=== PATIENT | female | born 1945 | race Caucasian/White ===

== ENCOUNTER → 2017-02-21 | Outpatient (CLI) | payer OTHER ==
[~2017-02-21] MED LIST: ASPI81CH43 PO; HYDR12.56 PO; METO25TA5 PO; POT20T PO; SIMV-8 PO
[2017-02-21 10:38] LABS: Basophils # (auto) 0 uL; Basophils % (auto) 0.6 % (0.0-2.0); Eosinophils # (auto) 0.2 uL; Eosinophils % (auto) 2.9 % (0.0-7.0); Hematocrit 38.3 % (36.0-46.0); Hemoglobin 12.6 g/dL (12.2-16.2); Lymphocytes # (auto) 1.5 uL; Lymphocytes % (auto) 24.4 % (10.0-50.0); Mean Corpuscular Hemoglobin 30.8 pg (28.0-32.0); Mean Corpuscular Hgb Conc. 32.8 g/dL (32.0-36.0); Mean Corpuscular Volume 93.7 fL (80.0-100.0); Mean Platelet Volume 9.7 fL (7.4-10.4); Monocytes # (auto) 0.6 uL; Monocytes % (auto) 10.1 % (0.0-12.0); Neutrophils # (auto) 3.9 uL; Platelet Count (auto) 286 10^3/uL (140-450); Red Cell Distribution Width 13.8 % (11.6-16.0); White Blood Cell 6.3 10^3/uL (4.4-10.8)
[2017-02-21 11:15] LABS: Bilirubin, Total 0.6 mg/dL (0.2-1.0); Calcium 8.7 mg/dL (8.5-10.1); Potassium 3.6 mmol/L (3.5-5.1); Total Protein 6.6 g/dL (6.4-8.2)
[2017-02-21 11:20] LABS: INR 0.96 (0.9-1.15); Partial Thromboplastin Time 31.8 sec (22.64-33.71); Prothrombin Time 10.4 sec (9.37-12.3)
== END | disposition home or self-care (01) ==
LOC: LAB 09:11
PROVIDERS: ATTEND Internal Medicine Cardiovascular Disease
DX: Z01.810 Encounter for preprocedural cardiovascular examination (principal); R07.9 Chest pain, unspecified
CPT/HCPCS: 36415; 80053; 85025; 85610; 85730

== ENCOUNTER 2017-02-23 07:54 | Inpatient (IN) | payer OTHER ==
[~2017-02-23] VITALS: Ht 172.7 cm; Wt 90.4 kg
[~2017-02-23 07:54] MED LIST changes: +HEPARIN IN NS 1000Units/500mL 1,500 ML ONE; +IODIXANOL 320MG/ML 100ML BTL IV ONE; +LIDOCAINE 2%HCL (LOCAL ANESTH.) INJ 20ML MDV ONE
[2017-02-23] MEDS ORDERED: fentaNYL CITRATE 100 MCG/2 ML VL ONE (08:39)
[2017-02-23] MEDS ORDERED: MIDAZOLAM HCL 1MG/1ML-2 ML VIAL ONE (08:39)
[2017-02-23] MEDS ORDERED: ANGIOMAX 250 MG VIAL IV ONE ×2 (08:40→10:34)
[2017-02-23] MEDS ORDERED: SODIUM CHL 0.9% 50 ML ONE ×2 (08:40→10:34)
[2017-02-23] MEDS ORDERED: hydrALAZINE HCL 20 MG/ML VL ONE (10:04)
[2017-02-23] MEDS ORDERED: ONDANSETRON HCL 4 MG/2 ML VIAL ONE (10:41)
[2017-02-23] MEDS ORDERED: MILK OF MAGNESIA 30ML SUSP PO ONE (11:45)
[2017-02-23] MEDS ORDERED: MORPHINE SULF INJ 2 MG/ML SYRINGE 1ML IV PRN ×2 (11:45)
[2017-02-23] MEDS ORDERED: HYDROcodone-ACET 5/325MG TAB PO PRN (11:45)
[2017-02-23] MEDS ORDERED: ONDANSETRON HCL 4 MG/2 ML VIAL IV PRN (11:45)
[2017-02-23] MEDS ORDERED: NITROGLYCERIN 0.4 MG SL TAB SL PRN ×2 (11:45)
[2017-02-23] MEDS ORDERED: ACETAMINOPHEN 500 MG TAB PO PRN (11:45)
[2017-02-23] MEDS ORDERED: LORazepam 0.5 MG TAB PO PRN (11:45)
[2017-02-23] MEDS ORDERED: ASPirin 325 MG TAB ONE (12:15)
[2017-02-23] MEDS ORDERED: CLOPIDOGREL 300 MG TAB ONE (12:15)
[2017-02-23] MEDS ORDERED: ASPirin 325 MG TAB PO ONE (12:30)
[2017-02-23] MEDS ORDERED: CLOPIDOGREL 300 MG TAB PO ONE (12:30)
[2017-02-23 20:00] VITALS: BP 159/73
[2017-02-23] MEDS: ENALAPRIL MALEATE 2.5 MG TAB PO SCH (21:25)
[2017-02-23 22:00] VITALS: BP 159/73
[2017-02-23] MEDS ORDERED: ATORVASTATIN 20 MG TAB PO SCH (22:00)
[2017-02-23 23:00] VITALS: BP 142/62
[2017-02-24 05:00] VITALS: BP 129/59
[2017-02-24 08:00] VITALS: BP 159/73
[2017-02-24] MEDS ORDERED: ASPirin-EC 81 mg tab PO SCH (10:00)
[2017-02-24] MEDS ORDERED: CLOPIDOGREL BISULFATE 75 MG TAB PO SCH (10:00)
[2017-02-24] MEDS ORDERED: METOPROLOL SUCCINATE XL 50 MG TAB PO SCH (10:00)
[2017-02-24] MEDS: ENALAPRIL MALEATE 2.5 MG TAB PO SCH (11:29)
[2017-02-24 14:06] VITALS: BP 137/54
[2017-02-24 15:08] VITALS: BP 140/55
== END 2017-02-24 16:00 | disposition home or self-care (01) | DRG 247 ==
LOC: CATH 07:54 → TELE-WESTW 07:55
PROVIDERS: ADMIT Internal Medicine Cardiovascular Disease; ATTEND Internal Medicine Cardiovascular Disease
PROC: B2111ZZ Fluoroscopy of Multiple Coronary Arteries using Low Osmolar Contrast (ICD-10-PCS; principal; 2017-02-23)
PROC: 027034Z Dilation of Coronary Artery, One Artery with Drug-eluting Intraluminal Device, Percutaneous Approach (ICD-10-PCS; 2017-02-23)
PROC: 4A023N7 Measurement of Cardiac Sampling and Pressure, Left Heart, Percutaneous Approach (ICD-10-PCS; 2017-02-23)
PROC: B41F1ZZ Fluoroscopy of Right Lower Extremity Arteries using Low Osmolar Contrast (ICD-10-PCS; 2017-02-23)
DX: I25.119 Atherosclerotic heart disease of native coronary artery with unspecified angina pectoris (principal); E44.0 Moderate protein-calorie malnutrition; I47.1 Supraventricular tachycardia; Z68.30 Body mass index [BMI] 30.0-30.9, adult; E78.5 Hyperlipidemia, unspecified; I12.9 Hypertensive chronic kidney disease with stage 1 through stage 4 chronic kidney disease, or unspecified chronic kidney disease; N18.3 Chronic kidney disease, stage 3 (moderate); Z79.02 Long term (current) use of antithrombotics/antiplatelets; Z79.82 Long term (current) use of aspirin; Z82.49 Family history of ischemic heart disease and other diseases of the circulatory system; Z95.5 Presence of coronary angioplasty implant and graft; Z88.5 Allergy status to narcotic agent; Z90.49 Acquired absence of other specified parts of digestive tract; Z90.710 Acquired absence of both cervix and uterus; Z84.89 Family history of other specified conditions; Z88.0 Allergy status to penicillin; Z91.02 Food additives allergy status
CPT/HCPCS: 92928; 93458; C1887; J2250; J2405; Q9967

== ENCOUNTER → 2017-03-12 | Outpatient (CLI) | payer OTHER ==
[~2017-03-12] MED LIST changes: -HEPARIN IN NS 1000Units/500mL 1,500 ML ONE; -IODIXANOL 320MG/ML 100ML BTL IV ONE; -LIDOCAINE 2%HCL (LOCAL ANESTH.) INJ 20ML MDV ONE; -METO25TA5 PO
== END | disposition home or self-care (01) ==
LOC: LAB 09:28
DX: Z12.11 Encounter for screening for malignant neoplasm of colon (principal)
CPT/HCPCS: 82270

== ENCOUNTER → 2017-06-29 | Outpatient (CLI) | payer OTHER ==
[2017-06-29 10:38] LABS: Basophils # (auto) 0.1 uL; Basophils % (auto) 0.7 % (0.0-2.0); Eosinophils # (auto) 0.2 uL; Eosinophils % (auto) 2.2 % (0.0-7.0); Hemoglobin 12.4 g/dL (12.2-16.2); Lymphocytes # (auto) 1.4 uL; Lymphocytes % (auto) 20.9 % (10.0-50.0); Mean Corpuscular Hemoglobin 31.9 pg (28.0-32.0); Mean Corpuscular Hgb Conc. 33.5 g/dL (32.0-36.0); Mean Corpuscular Volume 95.1 fL (80.0-100.0); Mean Platelet Volume 8.6 fL (7.4-10.4); Monocytes # (auto) 0.7 uL; Monocytes % (auto) 9.6 % (0.0-12.0); Neutrophils # (auto) 4.5 uL; Neutrophils % (auto) 66.6 % (37.0-80.0); Nucleated Red Blood Cells % 0.1 %; Platelet Count (auto) 273 10^3/uL (140-450); Red Cell Distribution Width 13.3 % (11.6-16.0); White Blood Cell 6.8 10^3/uL (4.4-10.8)
[2017-06-29 10:49] LABS: Urine Bilirubin Negative (Negative); Urine Blood Negative /uL (Negative); Urine Color Yellow (Yellow); Urine Glucose Normal (Normal); Urine Ketone Negative (Negative); Urine Mucus FEW (None Seen); Urine Nitrite Negative (Negative); Urine RBC 1 /hpf (0 - 4); Urine Squamous Epithelial Cell FEW /hpf (<5); Urine Urobilinogen Normal (Negative); Urine pH 5.5 (5.0-8.0)
[2017-06-29 11:08] LABS: Albumin 3.2 g/dL (3.4-5.0); BUN/Creatinine Ratio 10.3; Bilirubin, Total 0.8 mg/dL (0.2-1.0); Calcium 8.8 mg/dL (8.5-10.1); Potassium 3.3 mmol/L (3.5-5.1); Total Protein 6.9 g/dL (6.4-8.2)
[2017-07-02 10:01] LABS: Hepatitis B Surface Antibody Negative
== END | disposition home or self-care (01) ==
LOC: LAB 09:56
PROVIDERS: ATTEND Family Medicine
DX: Z11.59 Encounter for screening for other viral diseases (principal); I12.9 Hypertensive chronic kidney disease with stage 1 through stage 4 chronic kidney disease, or unspecified chronic kidney disease; N18.3 Chronic kidney disease, stage 3 (moderate)
CPT/HCPCS: 36415; 80053; 80061; 81001; 82306; 82607; 84443; 85025; 86704; 86706; 86708; 86803; 87340

== ENCOUNTER → 2017-07-12 | Outpatient (CLI) | payer OTHER ==
[2017-07-12 11:18] LABS: BUN/Creatinine Ratio 9.7; Calcium 8.8 mg/dL (8.5-10.1); Potassium 3.7 mmol/L (3.5-5.1)
== END | disposition home or self-care (01) ==
LOC: LAB 10:43
PROVIDERS: ATTEND Family Medicine
DX: E87.6 Hypokalemia (principal); I12.9 Hypertensive chronic kidney disease with stage 1 through stage 4 chronic kidney disease, or unspecified chronic kidney disease; N18.3 Chronic kidney disease, stage 3 (moderate)
CPT/HCPCS: 36415; 80048

== ENCOUNTER → 2018-10-09 | Outpatient (CLI) | payer OTHER ==
[2018-10-09 11:07] LABS: Basophils # (auto) 0 uL; Basophils % (auto) 0.4 % (0.0-2.0); Eosinophils # (auto) 0 uL; Eosinophils % (auto) 0.6 % (0.0-7.0); Hematocrit 39.3 % (36.0-46.0); Lymphocytes # (auto) 0.8 uL; Lymphocytes % (auto) 9.7 % (10.0-50.0); Mean Corpuscular Hemoglobin 31.9 pg (28.0-32.0); Mean Corpuscular Hgb Conc. 33.1 g/dL (32.0-36.0); Mean Corpuscular Volume 96.4 fL (80.0-100.0); Monocytes # (auto) 0.6 uL; Neutrophils # (auto) 6.4 uL; Neutrophils % (auto) 81.3 % (37.0-80.0); Platelet Count (auto) 283 10^3/uL (140-450); Red Blood Cells 4.08 10^6/uL (4.0-5.20); White Blood Cell 7.9 10^3/uL (4.4-10.8)
== END | disposition home or self-care (01) ==
LOC: LAB 10:54
PROVIDERS: ATTEND Podiatrist
DX: L08.9 Local infection of the skin and subcutaneous tissue, unspecified (principal)
CPT/HCPCS: 36415; 85025

== ENCOUNTER → 2018-10-09 | Outpatient (CLI) | payer OTHER | END | disposition home or self-care (01) | LOC: LAB 08:14 | PROVIDERS: ATTEND Podiatrist | DX: S91.301A Unspecified open wound, right foot, initial encounter (principal); X58.XXXA Exposure to other specified factors, initial encounter; Y93.89 Activity, other specified; Y92.89 Other specified places as the place of occurrence of the external cause; Y99.8 Other external cause status | CPT/HCPCS: 87205 ==

== ENCOUNTER → 2018-11-01 | Outpatient (CLI) | payer OTHER ==
[~2018-11-01] MED LIST changes: +CLOP75TA28 PO; +ENA2.5T PO; -HYDR12.56 PO; +IBU600T PO; +METO-169 PO; -POT20T PO; +RANI300T3 PO
== END | disposition home or self-care (01) ==
LOC: LAB 18:33
PROVIDERS: ATTEND Internal Medicine
DX: M86.171 Other acute osteomyelitis, right ankle and foot (principal)
CPT/HCPCS: 36415; 80202

== ENCOUNTER → 2018-11-04 | Outpatient (CLI) | payer OTHER, MEDICARE ==
[2018-11-04 14:01] LABS: Basophils # (auto) 0 uL; Basophils % (auto) 0.8 % (0.0-2.0); Eosinophils # (auto) 0.3 uL; Eosinophils % (auto) 5.1 % (0.0-7.0); Hematocrit 35.5 % (36.0-46.0); Hemoglobin 11.8 g/dL (12.2-16.2); Mean Corpuscular Hemoglobin 32.2 pg (28.0-32.0); Mean Corpuscular Hgb Conc. 33.2 g/dL (32.0-36.0); Mean Corpuscular Volume 96.9 fL (80.0-100.0); Monocytes # (auto) 0.5 uL; Monocytes % (auto) 8.3 % (0.0-12.0); Neutrophils # (auto) 4.1 uL; Neutrophils % (auto) 68.8 % (37.0-80.0); Platelet Count (auto) 200 10^3/uL (140-450); Red Blood Cells 3.66 10^6/uL (4.0-5.20); Red Cell Distribution Width 13.2 % (11.8-14.3); White Blood Cell 5.9 10^3/uL (4.4-10.8)
[2018-11-04 14:22] LABS: Potassium 3.4 mmol/L (3.5-5.1)
[2018-11-04 14:26] LABS: Albumin 2.9 g/dL (3.4-5.0); BUN/Creatinine Ratio 6.6; Calcium 7.9 mg/dL (8.5-10.1)
[2018-11-04 14:29] LABS: Bilirubin, Total 0.6 mg/dL (0.2-1.0); Total Protein 5.7 g/dL (6.4-8.2)
== END | disposition home or self-care (01) ==
LOC: LAB 13:35
PROVIDERS: ATTEND Internal Medicine
DX: M86.171 Other acute osteomyelitis, right ankle and foot (principal)
CPT/HCPCS: 36415; 80053; 80202; 85025

== ENCOUNTER 2018-11-07 15:19 | Emergency (ER) | payer OTHER, MEDICARE ==
[~2018-11-07] VITALS: Ht 172.7 cm; Wt 77.1 kg
[2018-11-07 16:22] LABS: Anion Gap 4 (5-15); Basophils # (auto) 0.1 uL; Basophils % (auto) 0.9 % (0.0-2.0); Blood Urea Nitrogen 12 mg/dL (7-18); Calcium 8.3 mg/dL (8.5-10.1); Carbon Dioxide 26 mmol/L (21-32); Chloride 115 mmol/L (98-107); Eosinophils # (auto) 0.3 uL; Eosinophils % (auto) 5.3 % (0.0-7.0); Glucose 123 mg/dL (74-106); Hematocrit 35.6 % (36.0-46.0); Hemoglobin 11.9 g/dL (12.2-16.2); Lymphocytes % (auto) 15.5 % (10.0-50.0); Mean Corpuscular Hemoglobin 32.2 pg (28.0-32.0); Mean Corpuscular Hgb Conc. 33.5 g/dL (32.0-36.0); Monocytes # (auto) 0.7 uL; Monocytes % (auto) 11.1 % (0.0-12.0); Neutrophils # (auto) 4.2 uL; Neutrophils % (auto) 67.2 % (37.0-80.0); Platelet Count (auto) 233 10^3/uL (140-450); Red Blood Cells 3.71 10^6/uL (4.0-5.20); Red Cell Distribution Width 13.3 % (11.8-14.3); Sodium 145 mmol/L (136-145); White Blood Cell 6.3 10^3/uL (4.4-10.8)
[2018-11-07 16:35] LABS: Alanine Aminotransferase 22 U/L (13-56); Alkaline Phosphatase 80 U/L (45-117); Aspartate Aminotransferase 19 U/L (15-37); BUN/Creatinine Ratio 7.6; Bilirubin, Total 0.5 mg/dL (0.2-1.0); GFR African American 41 mL/min; GFR Non-African American 34 mL/min; Total Protein 6.7 g/dL (6.4-8.2)
[2018-11-07 16:47] LABS: Potassium 2.8 mmol/L (3.5-5.1)
[2018-11-07 18:29] VITALS: BP 162/75
[2018-11-07] MEDS ORDERED: POTASSIUM EFFERVESENT TAB 25 MEQ PO ONE (19:45)
[2018-11-07] MEDS ORDERED: POTASSIUM CHL 20 Meq TABLET PO ONE (19:45)
== END 2018-11-07 19:42 | disposition home or self-care (01) ==
LOC: ER 15:27
DX: E87.6 Hypokalemia (principal); I10 Essential (primary) hypertension; E78.5 Hyperlipidemia, unspecified; Z86.73 Personal history of transient ischemic attack (TIA), and cerebral infarction without residual deficits; Z90.49 Acquired absence of other specified parts of digestive tract; Z90.710 Acquired absence of both cervix and uterus; Z98.61 Coronary angioplasty status; Z88.6 Allergy status to analgesic agent; Z91.018 Allergy to other foods
CPT/HCPCS: 36415; 80053; 84484; 85025; 93005

== ENCOUNTER → 2018-11-07 | Outpatient (CLI) | payer OTHER, MEDICARE ==
[2018-11-07 11:02] LABS: Albumin 2.9 g/dL (3.4-5.0); Calcium 8.2 mg/dL (8.5-10.1)
[2018-11-07 11:07] LABS: BUN/Creatinine Ratio 7.2; Bilirubin, Total 0.5 mg/dL (0.2-1.0); Total Protein 6.2 g/dL (6.4-8.2)
[2018-11-07 11:21] LABS: Potassium 2.7 mmol/L (3.5-5.1)
== END | disposition home or self-care (01) ==
LOC: LAB 10:22
PROVIDERS: ATTEND Family Medicine
DX: M86.171 Other acute osteomyelitis, right ankle and foot (principal); L03.115 Cellulitis of right lower limb
CPT/HCPCS: 36415; 80053; 80202

== ENCOUNTER 2018-11-09 10:11 | Emergency (ER) | payer MEDICARE, OTHER ==
[~2018-11-09] VITALS: Ht 172.7 cm; Wt 74.8 kg
[2018-11-09 10:18] VITALS: BP 177/65
[2018-11-09] MEDS ORDERED: POTASSIUM EFFERVESENT TAB 25 MEQ PO ONE ×2 (11:15)
== END 2018-11-09 11:44 | disposition home or self-care (01) ==
LOC: ER 10:11
DX: E87.6 Hypokalemia (principal); I10 Essential (primary) hypertension; E78.5 Hyperlipidemia, unspecified; Z90.710 Acquired absence of both cervix and uterus; Z90.49 Acquired absence of other specified parts of digestive tract; Z88.6 Allergy status to analgesic agent
CPT/HCPCS: 36415; 84132

== ENCOUNTER → 2018-11-11 | Outpatient (CLI) | payer OTHER, MEDICARE ==
[2018-11-11 10:40] LABS: Calcium 8.5 mg/dL (8.5-10.1); Potassium 3.3 mmol/L (3.5-5.1)
== END | disposition home or self-care (01) ==
LOC: LAB 10:08
PROVIDERS: ATTEND Family Medicine
DX: M86.171 Other acute osteomyelitis, right ankle and foot (principal)
CPT/HCPCS: 36415; 80048; 80202

== ENCOUNTER → 2018-11-14 | Outpatient (CLI) | payer OTHER, MEDICARE ==
[2018-11-14 09:56] LABS: Basophils # (auto) 0.1 uL; Basophils % (auto) 1.1 % (0.0-2.0); Eosinophils # (auto) 0.3 uL; Hematocrit 33.8 % (36.0-46.0); Hemoglobin 11.5 g/dL (12.2-16.2); Lymphocytes % (auto) 19.2 % (10.0-50.0); Mean Corpuscular Hemoglobin 32.5 pg (28.0-32.0); Mean Corpuscular Hgb Conc. 34.1 g/dL (32.0-36.0); Mean Corpuscular Volume 95.4 fL (80.0-100.0); Monocytes # (auto) 0.7 uL; Monocytes % (auto) 12.3 % (0.0-12.0); Neutrophils # (auto) 3.3 uL; Neutrophils % (auto) 61.4 % (37.0-80.0); Nucleated Red Blood Cells % 0.1 %; Platelet Count (auto) 246 10^3/uL (140-450); Red Blood Cells 3.54 10^6/uL (4.0-5.20); Red Cell Distribution Width 13.1 % (11.8-14.3); White Blood Cell 5.3 10^3/uL (4.4-10.8)
[2018-11-14 10:11] LABS: BUN/Creatinine Ratio 8.3; Calcium 8.3 mg/dL (8.5-10.1); Potassium 3.6 mmol/L (3.5-5.1)
[2018-11-14 10:14] LABS: Bilirubin, Total 0.7 mg/dL (0.2-1.0); Total Protein 6.6 g/dL (6.4-8.2)
== END | disposition home or self-care (01) ==
LOC: LAB 09:32
PROVIDERS: ATTEND Internal Medicine
DX: M86.171 Other acute osteomyelitis, right ankle and foot (principal)
CPT/HCPCS: 36415; 80053; 80202; 83036; 85025

== ENCOUNTER → 2018-11-18 | Outpatient (CLI) | payer OTHER, MEDICARE ==
[2018-11-18 11:03] LABS: Potassium 3.8 mmol/L (3.5-5.1)
[2018-11-18 11:10] LABS: Calcium 8.7 mg/dL (8.5-10.1)
== END | disposition home or self-care (01) ==
LOC: LAB 09:41
PROVIDERS: ATTEND Internal Medicine
DX: M86.171 Other acute osteomyelitis, right ankle and foot (principal)
CPT/HCPCS: 36415; 80048; 80202

== ENCOUNTER → 2018-11-25 | Outpatient (CLI) | payer OTHER, MEDICARE ==
[2018-11-25 10:57] LABS: Basophils # (auto) 0 uL; Basophils % (auto) 0.4 % (0.0-2.0); Eosinophils # (auto) 0.3 uL; Eosinophils % (auto) 6.2 % (0.0-7.0); Hematocrit 35.5 % (36.0-46.0); Lymphocytes % (auto) 18.6 % (10.0-50.0); Mean Corpuscular Hemoglobin 32.3 pg (28.0-32.0); Mean Corpuscular Hgb Conc. 33.7 g/dL (32.0-36.0); Mean Corpuscular Volume 95.7 fL (80.0-100.0); Monocytes # (auto) 0.6 uL; Monocytes % (auto) 10.5 % (0.0-12.0); Neutrophils # (auto) 3.4 uL; Neutrophils % (auto) 64.3 % (37.0-80.0); Nucleated Red Blood Cells % 0.1 %; Platelet Count (auto) 272 10^3/uL (140-450); Red Blood Cells 3.71 10^6/uL (4.0-5.20); Red Cell Distribution Width 13.2 % (11.8-14.3); White Blood Cell 5.3 10^3/uL (4.4-10.8)
[2018-11-25 11:00] LABS: Albumin 3.4 g/dL (3.4-5.0); Calcium 8.9 mg/dL (8.5-10.1)
[2018-11-25 11:03] LABS: Bilirubin, Total 0.9 mg/dL (0.2-1.0); Total Protein 6.9 g/dL (6.4-8.2)
[2018-11-25 11:53] LABS: Potassium 7.6 mmol/L (3.5-5.1)
== END | disposition home or self-care (01) ==
LOC: LAB 10:19
PROVIDERS: ATTEND Internal Medicine
DX: M86.171 Other acute osteomyelitis, right ankle and foot (principal); M66 Spontaneous rupture of synovium and tendon
CPT/HCPCS: 36415; 80053; 80202; 85025

== ENCOUNTER → 2018-11-26 | Outpatient (CLI) | payer OTHER, MEDICARE ==
[2018-11-26 10:33] LABS: Calcium 8.9 mg/dL (8.5-10.1); Potassium 3.4 mmol/L (3.5-5.1)
[2018-11-26 10:39] LABS: Albumin 3.4 g/dL (3.4-5.0); BUN/Creatinine Ratio 10.7; Bilirubin, Total 0.8 mg/dL (0.2-1.0); Total Protein 6.9 g/dL (6.4-8.2)
== END | disposition home or self-care (01) ==
LOC: LAB 09:55
PROVIDERS: ATTEND Internal Medicine
DX: M86.171 Other acute osteomyelitis, right ankle and foot (principal); L03.115 Cellulitis of right lower limb; M66 Spontaneous rupture of synovium and tendon
CPT/HCPCS: 36415; 80053

== ENCOUNTER → 2018-11-28 | Outpatient (CLI) | payer OTHER, MEDICARE | END | disposition home or self-care (01) | LOC: XY 11:14 | PROVIDERS: ATTEND Family Medicine | DX: M77.31 Calcaneal spur, right foot (principal); M19.071 Primary osteoarthritis, right ankle and foot; S91.301A Unspecified open wound, right foot, initial encounter; X58.XXXA Exposure to other specified factors, initial encounter; Y93.89 Activity, other specified; Y92.89 Other specified places as the place of occurrence of the external cause; Y99.8 Other external cause status | CPT/HCPCS: 73620; 78315; A9503 ==

== ENCOUNTER → 2018-11-28 | Outpatient (CLI) | payer OTHER, MEDICARE ==
[2018-11-28 09:53] LABS: Basophils # (auto) 0 uL; Basophils % (auto) 0.1 % (0.0-2.0); Eosinophils # (auto) 0.3 uL; Hematocrit 34.9 % (36.0-46.0); Hemoglobin 11.6 g/dL (12.2-16.2); Lymphocytes # (auto) 1.2 uL; Lymphocytes % (auto) 18.9 % (10.0-50.0); Mean Corpuscular Hgb Conc. 33.2 g/dL (32.0-36.0); Mean Corpuscular Volume 96.4 fL (80.0-100.0); Monocytes # (auto) 0.7 uL; Monocytes % (auto) 10.4 % (0.0-12.0); Neutrophils # (auto) 4.2 uL; Neutrophils % (auto) 65.6 % (37.0-80.0); Nucleated Red Blood Cells % 0.1 %; Platelet Count (auto) 290 10^3/uL (140-450); Red Blood Cells 3.62 10^6/uL (4.0-5.20); Red Cell Distribution Width 12.9 % (11.8-14.3); White Blood Cell 6.3 10^3/uL (4.4-10.8)
[2018-11-28 10:09] LABS: Albumin 3.2 g/dL (3.4-5.0); BUN/Creatinine Ratio 10.6; Calcium 8.7 mg/dL (8.5-10.1); Potassium 3.9 mmol/L (3.5-5.1)
[2018-11-28 10:18] LABS: Bilirubin, Total 0.7 mg/dL (0.2-1.0); Total Protein 6.8 g/dL (6.4-8.2)
== END | disposition home or self-care (01) ==
LOC: LAB 09:40
PROVIDERS: ATTEND Internal Medicine
DX: M66 Spontaneous rupture of synovium and tendon (principal); M86.171 Other acute osteomyelitis, right ankle and foot
CPT/HCPCS: 36415; 80053; 80202; 85025

== ENCOUNTER → 2018-12-25 | Day surgery (SDC) | payer OTHER ==
[2018-12-23 15:33] LABS: Albumin 3.4 g/dL (3.4-5.0); Potassium 3.8 mmol/L (3.5-5.1)
[2018-12-23 15:42] LABS: BUN/Creatinine Ratio 12.6; Bilirubin, Total 0.5 mg/dL (0.2-1.0); Total Protein 7.3 g/dL (6.4-8.2)
[2018-12-23 16:03] LABS: Basophils # (auto) 0.1 uL; Basophils % (auto) 0.8 % (0.0-2.0); Eosinophils # (auto) 0.1 uL; Eosinophils % (auto) 1.6 % (0.0-7.0); Hematocrit 35.9 % (36.0-46.0); Hemoglobin 11.9 g/dL (12.2-16.2); INR 0.95 (0.9-1.15); Lymphocytes # (auto) 1.8 uL; Lymphocytes % (auto) 23.2 % (10.0-50.0); Mean Corpuscular Hemoglobin 31.8 pg (28.0-32.0); Mean Corpuscular Hgb Conc. 33.1 g/dL (32.0-36.0); Monocytes # (auto) 0.7 uL; Monocytes % (auto) 9.5 % (0.0-12.0); Neutrophils # (auto) 4.9 uL; Neutrophils % (auto) 64.9 % (37.0-80.0); Nucleated Red Blood Cells % 0.1 %; Partial Thromboplastin Time 30.4 sec (23.78-33.04); Platelet Count (auto) 301 10^3/uL (140-450); Prothrombin Time 10.2 sec (9.27-12.13); Red Blood Cells 3.74 10^6/uL (4.0-5.20); Red Cell Distribution Width 13.2 % (11.8-14.3); White Blood Cell 7.6 10^3/uL (4.4-10.8)
[2018-12-23 16:13] LABS: Urine Bacteria FEW /hpf (None Seen); Urine Blood Negative /uL (Negative); Urine Specific Gravity 1.009 (1.001-1.035); Urine WBC 8 /hpf (0 - 5)
[~2018-12-25] VITALS: Ht 172.7 cm; Wt 78.0 kg
[~2018-12-25] MED LIST changes: +BUPIVACAINE 0.25% INJ 50ML VIAL ONE; +CLINDAMYCIN 600MG IV 50 ML IV ONE; +HYDROmorphone HCL 2 MG/ML VL IV PRN; -IBU600T PO; -METO-169 PO; +METOCLOPRAMIDE HCL 5MG/ml INJ 2ml VIAL IV ONE; +MIDAZOLAM HCL 1MG/1ML-2 ML VIAL ONE; +ONDANSETRON HCL 4 MG/2 ML VIAL ONE; +OXYB5SYP4 PO; +PROPOFOL 10 MG/ML 20 ML IV ONE; -RANI300T3 PO; +fentaNYL CITRATE 100 MCG/2 ML VL ONE
[2018-12-25 19:14] VITALS: BP 133/64
== END | disposition home or self-care (01) ==
LOC: SUR 13:47
PROVIDERS: ATTEND Podiatrist
DX: D16.9 Benign neoplasm of bone and articular cartilage, unspecified (principal); F32.9 Major depressive disorder, single episode, unspecified; F41.9 Anxiety disorder, unspecified; I10 Essential (primary) hypertension; I25.10 Atherosclerotic heart disease of native coronary artery without angina pectoris; I25.2 Old myocardial infarction; I12.9 Hypertensive chronic kidney disease with stage 1 through stage 4 chronic kidney disease, or unspecified chronic kidney disease; N18.3 Chronic kidney disease, stage 3 (moderate); Z90.710 Acquired absence of both cervix and uterus; Z88.0 Allergy status to penicillin; Z88.5 Allergy status to narcotic agent; Z88.8 Allergy status to other drugs, medicaments and biological substances; Z95.5 Presence of coronary angioplasty implant and graft; Z98.890 Other specified postprocedural states
CPT/HCPCS: 28120; 36415; 73620; 80053; 81001; 85025; 85610; 85730; 87070; 87075; 87077; 87186; 87205; 88302; 88304; 88311; J2250; J2405; J2704; J3010; J3490; 76000

== ENCOUNTER → 2019-02-17 | Outpatient (CLI) | payer OTHER, MEDICARE ==
[~2019-02-17] MED LIST changes: -BUPIVACAINE 0.25% INJ 50ML VIAL ONE; -CLINDAMYCIN 600MG IV 50 ML IV ONE; -HYDROmorphone HCL 2 MG/ML VL IV PRN; -METOCLOPRAMIDE HCL 5MG/ml INJ 2ml VIAL IV ONE; -MIDAZOLAM HCL 1MG/1ML-2 ML VIAL ONE; -ONDANSETRON HCL 4 MG/2 ML VIAL ONE; -PROPOFOL 10 MG/ML 20 ML IV ONE; -fentaNYL CITRATE 100 MCG/2 ML VL ONE
== END | disposition home or self-care (01) ==
LOC: LAB 16:04
PROVIDERS: ATTEND Podiatrist
DX: S91.301A Unspecified open wound, right foot, initial encounter (principal); X58.XXXA Exposure to other specified factors, initial encounter; Y93.89 Activity, other specified; Y92.89 Other specified places as the place of occurrence of the external cause; Y99.8 Other external cause status
CPT/HCPCS: 87077; 87186; 87205

== ENCOUNTER → 2019-09-16 | Outpatient (CLI) | payer MEDICARE, OTHER ==
[~2019-09-16] MED LIST changes: -ENA2.5T PO; +ENAL2.5T2 PO
== END | disposition home or self-care (01) ==
LOC: XY 08:39
PROVIDERS: ATTEND Internal Medicine
DX: I65.22 Occlusion and stenosis of left carotid artery (principal); R09.89 Other specified symptoms and signs involving the circulatory and respiratory systems
CPT/HCPCS: 93886

== ENCOUNTER → 2019-09-17 | Outpatient (CLI) | payer MEDICARE, OTHER ==
[~2019-09-17] VITALS: Ht 172.7 cm; Wt 78.9 kg
[~2019-09-17] MED LIST changes: +ADENOSINE 66 MG in GIVE UN-DILUTED 0 ML IV STA
== END | disposition home or self-care (01) ==
LOC: XY 10:02
PROVIDERS: ATTEND Internal Medicine
DX: M79.673 Pain in unspecified foot (principal); R07.9 Chest pain, unspecified; R09.89 Other specified symptoms and signs involving the circulatory and respiratory systems; Z87.2 Personal history of diseases of the skin and subcutaneous tissue
CPT/HCPCS: 78452; 93017; A9500; J0153

== ENCOUNTER → 2019-12-24 | Outpatient (CLI) | payer OTHER ==
[~2019-12-24] MED LIST changes: -ADENOSINE 66 MG in GIVE UN-DILUTED 0 ML IV STA
[2019-12-24 09:10] LABS: Basophils # (auto) 0.1 10 ^3/uL (0-0.2); Basophils % (auto) 1.2 % (0.0-2.0); Eosinophils # (auto) 0.3 10 ^3/uL (0-0.8); Eosinophils % (auto) 5.6 % (0.0-7.0); Hematocrit 41.1 % (36.0-46.0); Hemoglobin 13.6 g/dL (12.2-16.2); Lymphocytes # (auto) 1.1 10 ^3/uL (0.4-5.4); Lymphocytes % (auto) 22.5 % (10.0-50.0); Mean Corpuscular Hemoglobin 31.6 pg (28.0-32.0); Mean Corpuscular Volume 95.8 fL (80.0-100.0); Monocytes # (auto) 0.4 10 ^3/uL (0-1.3); Neutrophils % (auto) 61.7 % (37.0-80.0); Platelet Count (auto) 273 10^3/uL (140-450); Red Blood Cells 4.29 10^6/uL (4.0-5.20); Red Cell Distribution Width 13.2 % (11.8-14.3); White Blood Cell 4.9 10^3/uL (4.4-10.8)
[2019-12-24 09:15] LABS: Urine Bacteria NONE SEEN /hpf (None Seen); Urine Blood Negative /uL (Negative); Urine Specific Gravity 1.009 (1.001-1.035); Urine WBC 4 /hpf (0 - 5)
[2019-12-24 11:58] LABS: Potassium 4.3 mmol/L (3.5-5.1)
[2019-12-24 12:09] LABS: Albumin 3.6 g/dL (3.4-5.0); Bilirubin, Total 0.6 mg/dL (0.2-1.0); Calcium 9.4 mg/dL (8.5-10.1); Total Protein 7.6 g/dL (6.4-8.2)
== END | disposition home or self-care (01) ==
LOC: LAB 08:39
PROVIDERS: ATTEND Family Medicine
DX: I47.1 Supraventricular tachycardia (principal); I10 Essential (primary) hypertension; E78.49 Other hyperlipidemia; K21.9 Gastro-esophageal reflux disease without esophagitis; E55.9 Vitamin D deficiency, unspecified; Z95.9 Presence of cardiac and vascular implant and graft, unspecified
CPT/HCPCS: 36415; 80053; 80061; 81001; 82306; 84443; 85025

== ENCOUNTER → 2020-08-19 | Outpatient (CLI) | payer OTHER ==
[~2020-08-19] MED LIST changes: +ENAL2.5T11 PO; -ENAL2.5T2 PO
[2020-08-19 09:28] LABS: Basophils # (auto) 0.1 10 ^3/uL (0-0.2); Basophils % (auto) 0.8 % (0.0-2.0); Eosinophils # (auto) 0.2 10 ^3/uL (0-0.8); Eosinophils % (auto) 2.4 % (0.0-7.0); Lymphocytes # (auto) 1.2 10 ^3/uL (0.4-5.4); Lymphocytes % (auto) 16.3 % (10.0-50.0); Mean Corpuscular Hgb Conc. 33.2 g/dL (32.0-36.0); Mean Corpuscular Volume 96.6 fL (80.0-100.0); Monocytes # (auto) 0.6 10 ^3/uL (0-1.3); Monocytes % (auto) 7.9 % (0.0-12.0); Neutrophils # (auto) 5.2 10 ^3/uL (1.6-8.6); Neutrophils % (auto) 72.6 % (37.0-80.0); Platelet Count (auto) 291 10^3/uL (140-450); Red Blood Cells 4.04 10^6/uL (4.0-5.20); Red Cell Distribution Width 13.7 % (11.8-14.3); White Blood Cell 7.2 10^3/uL (4.4-10.8)
[2020-08-19 09:33] LABS: Urine Bacteria NONE SEEN /hpf (None Seen); Urine Blood Negative /uL (Negative); Urine Hyaline Cast FEW /lpf (0 - 2); Urine Mucus FEW (None Seen); Urine Specific Gravity 1.023 (1.001-1.035); Urine WBC 14 /hpf (0 - 5)
[2020-08-19 09:51] LABS: Albumin 3.6 g/dL (3.4-5.0); Calcium 9.2 mg/dL (8.5-10.1); Potassium 3.9 mmol/L (3.5-5.1)
[2020-08-19 09:55] LABS: BUN/Creatinine Ratio 17.7; Bilirubin, Total 0.8 mg/dL (0.2-1.0); Total Protein 6.9 g/dL (6.4-8.2)
== END | disposition home or self-care (01) ==
LOC: LAB 09:05
PROVIDERS: ATTEND Internal Medicine
DX: E11.22 Type 2 diabetes mellitus with diabetic chronic kidney disease (principal); N18.30 Chronic kidney disease, stage 3 unspecified
CPT/HCPCS: 36415; 80053; 81001; 82043; 82274; 82607; 83036; 84443; 85025

== ENCOUNTER 2020-12-10 11:30 | Day surgery (SDC) | payer OTHER ==
[2020-12-06 11:56] LABS: Basophils # (auto) 0.1 10 ^3/uL (0-0.2); Eosinophils # (auto) 0.2 10 ^3/uL (0-0.8); Eosinophils % (auto) 4.5 % (0.0-7.0); Hematocrit 34.8 % (36.0-46.0); Hemoglobin 11.7 g/dL (12.2-16.2); Lymphocytes # (auto) 1.5 10 ^3/uL (0.4-5.4); Mean Corpuscular Hemoglobin 32.1 pg (28.0-32.0); Mean Corpuscular Hgb Conc. 33.8 g/dL (32.0-36.0); Monocytes # (auto) 0.5 10 ^3/uL (0-1.3); Monocytes % (auto) 9.9 % (0.0-12.0); Neutrophils # (auto) 3.1 10 ^3/uL (1.6-8.6); Neutrophils % (auto) 56.6 % (37.0-80.0); Red Blood Cells 3.66 10^6/uL (4.0-5.20); Red Cell Distribution Width 13.7 % (11.8-14.3); White Blood Cell 5.4 10^3/uL (4.4-10.8)
[2020-12-06 12:39] LABS: INR 0.95 (0.9-1.15)
[~2020-12-10] VITALS: Ht 172.7 cm; Wt 74.8 kg
[~2020-12-10 11:30] MED LIST changes: +METO-159 PO; -OXYB5SYP4 PO; +OXYB5TAB61 PO; +PANT40TA2 PO; +SIMV-13 PO; -SIMV-8 PO
[2020-12-10] MEDS ORDERED: diphenhdrAMINE HCL 50 MG/1 ML VL ONE (12:09)
[2020-12-10] MEDS: MIDAZOLAM HCL 5 MG/ML-1ML VIAL ONE ×2 (13:05→13:08)
[2020-12-10] MEDS: fentaNYL CITRATE 100 MCG/2 ML VL ONE ×3 (13:05→13:11)
[2020-12-10 13:55] VITALS: BP 138/69
== END 2020-12-10 14:00 | disposition home or self-care (01) ==
LOC: GI 11:30
PROVIDERS: ATTEND Internal Medicine Gastroenterology
DX: R19.5 Other fecal abnormalities (principal); K57.30 Diverticulosis of large intestine without perforation or abscess without bleeding; K63.89 Other specified diseases of intestine; K64.8 Other hemorrhoids; H26.9 Unspecified cataract; I34.1 Nonrheumatic mitral (valve) prolapse; F41.9 Anxiety disorder, unspecified; F32.9 Major depressive disorder, single episode, unspecified; Z20.822 Contact with and (suspected) exposure to COVID-19; Z98.890 Other specified postprocedural states; Z79.899 Other long term (current) drug therapy; Z90.710 Acquired absence of both cervix and uterus; Z88.0 Allergy status to penicillin; Z88.5 Allergy status to narcotic agent; Z91.018 Allergy to other foods; Z90.10 Acquired absence of unspecified breast and nipple
CPT/HCPCS: 36415; 45385; 85025; 85610; 85730; J2250; J3010; J7030; U0003; 99152

== ENCOUNTER 2020-12-15 18:24 | Inpatient (IN) | payer OTHER ==
[~2020-12-15] VITALS: Ht 172.7 cm; Wt 77.4 kg
[2020-12-15 19:30] LABS: Basophils # (auto) 0.1 10 ^3/uL (0-0.2); Basophils % (auto) 0.4 % (0.0-2.0); Eosinophils # (auto) 0.2 10 ^3/uL (0-0.8); Eosinophils % (auto) 1.2 % (0.0-7.0); Hematocrit 30.8 % (36.0-46.0); Hemoglobin 10.3 g/dL (12.2-16.2); Lymphocytes # (auto) 1.1 10 ^3/uL (0.4-5.4); Lymphocytes % (auto) 8.9 % (10.0-50.0); Mean Corpuscular Hemoglobin 32.1 pg (28.0-32.0); Mean Corpuscular Hgb Conc. 33.4 g/dL (32.0-36.0); Mean Corpuscular Volume 96.1 fL (80.0-100.0); Monocytes # (auto) 0.8 10 ^3/uL (0-1.3); Monocytes % (auto) 6.3 % (0.0-12.0); Neutrophils # (auto) 10.4 10 ^3/uL (1.6-8.6); Neutrophils % (auto) 83.2 % (37.0-80.0); Platelet Count (auto) 254 10^3/uL (140-450); Red Blood Cells 3.21 10^6/uL (4.0-5.20); Red Cell Distribution Width 13.6 % (11.8-14.3); White Blood Cell 12.6 10^3/uL (4.4-10.8)
[2020-12-15] MEDS ORDERED: PANTOPRAZOLE 40 MG/10 ML VIAL INJ IV ONE (19:30)
[2020-12-15] MEDS ORDERED: SODIUM CHLORIDE 0.9% 1,000 ML IV ONE (19:30)
[2020-12-15 19:48] LABS: Calcium 7.9 mg/dL (8.5-10.1); Potassium 4.4 mmol/L (3.5-5.1)
[2020-12-15 19:53] LABS: BUN/Creatinine Ratio 17.8; Bilirubin, Total 0.4 mg/dL (0.2-1.0)
[2020-12-15 21:14] LABS: INR 1.01 (0.9-1.15); Partial Thromboplastin Time 28.5 sec (23.0-31.2)
[2020-12-16] MEDS ORDERED: MORPHINE SULF INJ 2 MG/ML SYRINGE 1ML IV PRN (00:45)
[2020-12-16] MEDS ORDERED: NITROGLYCERIN 0.4 MG SL TAB SL PRN (00:45)
[2020-12-16] MEDS ORDERED: DEXTROSE (50%) 50ML SYRG IV PRN (00:45)
[2020-12-16] MEDS: SODIUM CHLORIDE 0.9% 1,000 ML IV SCH ×2 (00:45→12:39)
[2020-12-16 02:22] LABS: Hematocrit 26.4 % (36.0-46.0); Hemoglobin 9.1 g/dL (12.2-16.2)
[2020-12-16] MEDS: InsuLIN REG 1unit/0.01ml Soln (100units/ml) SC SCH ×3 (06:00→18:00)
[2020-12-16] MEDS: ACCU-CHEK COMFORT CURVE STRIP VI SCH ×3 (06:21→18:14)
[2020-12-16 09:05] LABS: % Iron Saturation 33.7 % (15-50); Calcium 8.1 mg/dL (8.5-10.1); Potassium 4.1 mmol/L (3.5-5.1)
[2020-12-16 09:07] LABS: BUN/Creatinine Ratio 18.1
[2020-12-16 09:12] LABS: Basophils # (auto) 0 10 ^3/uL (0-0.2); Basophils % (auto) 0.6 % (0.0-2.0); Eosinophils # (auto) 0.1 10 ^3/uL (0-0.8); Eosinophils % (auto) 1.7 % (0.0-7.0); Hematocrit 29.1 % (36.0-46.0); Hemoglobin 9.7 g/dL (12.2-16.2); Lymphocytes # (auto) 1.5 10 ^3/uL (0.4-5.4); Lymphocytes % (auto) 20.2 % (10.0-50.0); Mean Corpuscular Hemoglobin 32.2 pg (28.0-32.0); Mean Corpuscular Hgb Conc. 33.5 g/dL (32.0-36.0); Mean Corpuscular Volume 96.1 fL (80.0-100.0); Monocytes # (auto) 0.7 10 ^3/uL (0-1.3); Monocytes % (auto) 8.8 % (0.0-12.0); Neutrophils # (auto) 5.2 10 ^3/uL (1.6-8.6); Neutrophils % (auto) 68.7 % (37.0-80.0); Nucleated Red Blood Cells % 0.1 %; Platelet Count (auto) 235 10^3/uL (140-450); Red Blood Cells 3.03 10^6/uL (4.0-5.20); Red Cell Distribution Width 13.5 % (11.8-14.3); White Blood Cell 7.5 10^3/uL (4.4-10.8)
[2020-12-16 09:16] LABS: Ferritin 55.1 ng/mL (10-322)
[2020-12-16 09:17] LABS: Folate (Folic Acid) 18.16 ng/mL (5.38-24)
[2020-12-16] MEDS: PANTOPRAZOLE 40 MG/10 ML VIAL INJ IV SCH ×2 (10:53→23:50)
[2020-12-16] MEDS ORDERED: CYANOCOBALAMIN (B-12) 1000 MCG/1 ML VIAL SUBCUT ONE (12:00)
[2020-12-16 17:13] LABS: Urine Bacteria NONE SEEN /hpf (None Seen); Urine Blood 1+ /uL (Negative); Urine Specific Gravity 1.013 (1.001-1.035); Urine WBC 44 /hpf (0 - 5); Urine WBC Clumps PRESENT /hpf (None Seen)
[2020-12-16] MEDS ORDERED: levoFLOXacin 500 MG TAB PO ONE (18:15)
[2020-12-16 19:42] LABS: Hematocrit 26.4 % (36.0-46.0); Hemoglobin 8.9 g/dL (12.2-16.2)
[2020-12-16 22:00] VITALS: BP 159/86
[2020-12-17] MEDS: ACCU-CHEK COMFORT CURVE STRIP VI SCH ×5 (00:05→23:56)
[2020-12-17] MEDS: SODIUM CHLORIDE 0.9% 1,000 ML IV SCH ×3 (00:05→23:56)
[2020-12-17] MEDS ORDERED: ACETAMINOPHEN 325 MG TAB PO PRN (00:15)
[2020-12-17 05:17] VITALS: BP 145/72
[2020-12-17] MEDS: InsuLIN REG 1unit/0.01ml Soln (100units/ml) SC SCH ×5 (05:54→23:57)
[2020-12-17 07:05] LABS: Basophils # (auto) 0 10 ^3/uL (0-0.2); Basophils % (auto) 0.5 % (0.0-2.0); Eosinophils # (auto) 0.2 10 ^3/uL (0-0.8); Eosinophils % (auto) 2.6 % (0.0-7.0); Hematocrit 27.4 % (36.0-46.0); Hemoglobin 9.2 g/dL (12.2-16.2); Lymphocytes # (auto) 1.5 10 ^3/uL (0.4-5.4); Mean Corpuscular Hemoglobin 32.2 pg (28.0-32.0); Mean Corpuscular Hgb Conc. 33.7 g/dL (32.0-36.0); Mean Corpuscular Volume 95.6 fL (80.0-100.0); Monocytes # (auto) 0.7 10 ^3/uL (0-1.3); Monocytes % (auto) 11.2 % (0.0-12.0); Neutrophils # (auto) 4.1 10 ^3/uL (1.6-8.6); Neutrophils % (auto) 62.7 % (37.0-80.0); Nucleated Red Blood Cells % 0.1 %; Platelet Count (auto) 198 10^3/uL (140-450); Red Blood Cells 2.86 10^6/uL (4.0-5.20); Red Cell Distribution Width 13.4 % (11.8-14.3); White Blood Cell 6.6 10^3/uL (4.4-10.8)
[2020-12-17 07:17] LABS: Albumin 2.7 g/dL (3.4-5.0); Calcium 8.5 mg/dL (8.5-10.1); Potassium 3.8 mmol/L (3.5-5.1)
[2020-12-17 07:20] LABS: BUN/Creatinine Ratio 12.6; Bilirubin, Total 0.8 mg/dL (0.2-1.0); Total Protein 5.5 g/dL (6.4-8.2)
[2020-12-17 09:00] VITALS: BP 156/79
[2020-12-17] MEDS: PANTOPRAZOLE 40 MG/10 ML VIAL INJ IV SCH ×2 (09:16→22:07)
[2020-12-17] MEDS: ONDANSETRON HCL 4 MG/2 ML VIAL IV PRN (09:17)
[2020-12-17] MEDS: levoFLOXacin 500 MG TAB PO SCH (09:17)
[2020-12-17] MEDS: METOPROLOL SUCCINATE XL 50 MG TAB PO SCH (12:28)
[2020-12-17 13:00] VITALS: BP 162/74
[2020-12-17 17:00] VITALS: BP 158/93
[2020-12-17 22:00] VITALS: BP 142/71
[2020-12-17] MEDS ORDERED: ENALAPRIL MALEATE 2.5 MG TAB PO SCH (22:00)
[2020-12-17] MEDS: ENALAPRIL MALEATE 2.5 MG TAB PO SCH (22:07)
[2020-12-18 05:00] VITALS: BP 131/60
[2020-12-18 05:44] LABS: Hemoglobin 8.5 g/dL (12.2-16.2)
[2020-12-18] MEDS: ACCU-CHEK COMFORT CURVE STRIP VI SCH ×3 (05:46→17:39)
[2020-12-18] MEDS: InsuLIN REG 1unit/0.01ml Soln (100units/ml) SC SCH ×3 (05:47→17:38)
[2020-12-18 09:00] VITALS: BP 91/48
[2020-12-18] MEDS: ONDANSETRON HCL 4 MG/2 ML VIAL IV PRN (09:09)
[2020-12-18] MEDS: PANTOPRAZOLE 40 MG/10 ML VIAL INJ IV SCH ×2 (09:10→21:50)
[2020-12-18] MEDS: METOPROLOL SUCCINATE XL 50 MG TAB PO SCH (09:14)
[2020-12-18] MEDS: ENALAPRIL MALEATE 2.5 MG TAB PO SCH (09:14)
[2020-12-18] MEDS ORDERED: METOPROLOL TARTRATE 50 MG TAB PO SCH (10:00)
[2020-12-18] MEDS: levoFLOXacin 500 MG TAB PO SCH (11:46)
[2020-12-18 12:52] VITALS: BP 100/53
[2020-12-18] MEDS: SODIUM CHLORIDE 0.9% 1,000 ML IV SCH (15:12)
[2020-12-18 16:42] VITALS: BP 105/51
[2020-12-18 16:54] LABS: Urine Bacteria FEW /hpf (None Seen); Urine Blood Negative /uL (Negative); Urine Specific Gravity 1.004 (1.001-1.035); Urine WBC 7 /hpf (0 - 5)
[2020-12-18 22:00] VITALS: BP 117/61
[2020-12-19] MEDS: ACCU-CHEK COMFORT CURVE STRIP VI SCH ×2 (00:16→05:48)
[2020-12-19] MEDS: SODIUM CHLORIDE 0.9% 1,000 ML IV SCH (00:17)
[2020-12-19 05:00] VITALS: BP 134/56
[2020-12-19] MEDS: InsuLIN REG 1unit/0.01ml Soln (100units/ml) SC SCH ×2 (05:49)
[2020-12-19 08:49] VITALS: BP 141/63
[2020-12-19] MEDS: PANTOPRAZOLE 40 MG/10 ML VIAL INJ IV SCH (10:13)
[2020-12-19] MEDS: levoFLOXacin 500 MG TAB PO SCH (10:14)
[2020-12-19 10:55] LABS: Basophils # (auto) 0 10 ^3/uL (0-0.2); Basophils % (auto) 0.6 % (0.0-2.0); Eosinophils # (auto) 0.2 10 ^3/uL (0-0.8); Eosinophils % (auto) 2.7 % (0.0-7.0); Hematocrit 25.6 % (36.0-46.0); Hemoglobin 8.7 g/dL (12.2-16.2); Lymphocytes # (auto) 1.1 10 ^3/uL (0.4-5.4); Lymphocytes % (auto) 18.2 % (10.0-50.0); Monocytes # (auto) 0.8 10 ^3/uL (0-1.3); Monocytes % (auto) 12.7 % (0.0-12.0); Neutrophils # (auto) 4.1 10 ^3/uL (1.6-8.6); Neutrophils % (auto) 65.8 % (37.0-80.0); Platelet Count (auto) 197 10^3/uL (140-450); Red Blood Cells 2.64 10^6/uL (4.0-5.20); Red Cell Distribution Width 13.6 % (11.8-14.3); White Blood Cell 6.2 10^3/uL (4.4-10.8)
[2020-12-19 11:09] LABS: Calcium 8.2 mg/dL (8.5-10.1); Potassium 3.8 mmol/L (3.5-5.1)
[2020-12-19 11:11] LABS: BUN/Creatinine Ratio 9.5
[2020-12-19 13:14] VITALS: BP 142/56
== END 2020-12-19 15:10 | disposition home or self-care (01) | DRG 920 ==
LOC: EDBD 18:24 → ER 18:27 → TELE 12-16 00:42 → TELE-CENTR 12-16 21:29
PROVIDERS: ADMIT Nurse Practitioner; ATTEND Internal Medicine
DX: K91.840 Postprocedural hemorrhage of a digestive system organ or structure following a digestive system procedure (principal); N39.0 Urinary tract infection, site not specified; N17.9 Acute kidney failure, unspecified; E44.0 Moderate protein-calorie malnutrition; R44.3 Hallucinations, unspecified; K62.5 Hemorrhage of anus and rectum; Z20.822 Contact with and (suspected) exposure to COVID-19; D64.9 Anemia, unspecified; E78.5 Hyperlipidemia, unspecified; I10 Essential (primary) hypertension; I95.9 Hypotension, unspecified; E11.9 Type 2 diabetes mellitus without complications; I25.10 Atherosclerotic heart disease of native coronary artery without angina pectoris; Y83.8 Other surgical procedures as the cause of abnormal reaction of the patient, or of later complication, without mention of misadventure at the time of the procedure; Y73.8 Miscellaneous gastroenterology and urology devices associated with adverse incidents, not elsewhere classified; K57.30 Diverticulosis of large intestine without perforation or abscess without bleeding; K59.00 Constipation, unspecified; Z82.3 Family history of stroke; Z82.49 Family history of ischemic heart disease and other diseases of the circulatory system; Z86.73 Personal history of transient ischemic attack (TIA), and cerebral infarction without residual deficits; Z87.891 Personal history of nicotine dependence; Z90.49 Acquired absence of other specified parts of digestive tract; Z90.710 Acquired absence of both cervix and uterus; Z98.61 Coronary angioplasty status; Z88.0 Allergy status to penicillin; Z88.6 Allergy status to analgesic agent; Z88.8 Allergy status to other drugs, medicaments and biological substances; Y92.89 Other specified places as the place of occurrence of the external cause; Z68.25 Body mass index [BMI] 25.0-25.9, adult
CPT/HCPCS: 36415; 70450; 71045; 74176; 80048; 80053; 81001; 82607; 82728; 82746; 82962; 83036; 83540; 83550; 83605; 83615; 83735; 85014; 85018; 85025; 85045; 85610; 85730; 86850; 86900; 86901; 87040; 87426; 87804; 96361; 96374; 97116; 97163; 97530; 99291; C9113; G0378; J2405

== ENCOUNTER → 2020-12-24 | Outpatient (CLI) | payer OTHER ==
[2020-12-24 15:49] LABS: Basophils # (auto) 0.1 10 ^3/uL (0-0.2); Eosinophils # (auto) 0.2 10 ^3/uL (0-0.8); Eosinophils % (auto) 4.3 % (0.0-7.0); Hematocrit 25.8 % (36.0-46.0); Hemoglobin 8.8 g/dL (12.2-16.2); Lymphocytes # (auto) 1.5 10 ^3/uL (0.4-5.4); Lymphocytes % (auto) 26.3 % (10.0-50.0); Mean Corpuscular Hemoglobin 32.8 pg (28.0-32.0); Mean Corpuscular Hgb Conc. 34.1 g/dL (32.0-36.0); Mean Corpuscular Volume 96.1 fL (80.0-100.0); Monocytes # (auto) 0.6 10 ^3/uL (0-1.3); Monocytes % (auto) 11.5 % (0.0-12.0); Neutrophils # (auto) 3.2 10 ^3/uL (1.6-8.6); Neutrophils % (auto) 56.9 % (37.0-80.0); Platelet Count (auto) 248 10^3/uL (140-450); Red Blood Cells 2.68 10^6/uL (4.0-5.20); Red Cell Distribution Width 13.4 % (11.8-14.3); White Blood Cell 5.6 10^3/uL (4.4-10.8)
[2020-12-24 16:06] LABS: BUN/Creatinine Ratio 16.7; Calcium 8.2 mg/dL (8.5-10.1); Potassium 3.9 mmol/L (3.5-5.1)
== END | disposition home or self-care (01) ==
LOC: LAB 15:35
PROVIDERS: ATTEND Internal Medicine
DX: D68.9 Coagulation defect, unspecified (principal)
CPT/HCPCS: 36415; 80048; 85025

== ENCOUNTER 2020-12-27 09:04 | Emergency (ER) | payer OTHER ==
[~2020-12-27] VITALS: Ht 172.7 cm; Wt 74.8 kg
[2020-12-27] MEDS ORDERED: MORPHINE SULF INJ 2 MG/ML SYRINGE 1ML IV ONE (10:00)
[2020-12-27] MEDS ORDERED: ONDANSETRON HCL 4 MG/2 ML VIAL IV ONE (10:00)
[2020-12-27 10:38] LABS: Basophils # (auto) 0.1 10 ^3/uL (0-0.2); Basophils % (auto) 0.7 % (0.0-2.0); Eosinophils # (auto) 0.1 10 ^3/uL (0-0.8); Eosinophils % (auto) 1.4 % (0.0-7.0); Hematocrit 28.4 % (36.0-46.0); Hemoglobin 9.6 g/dL (12.2-16.2); Lymphocytes # (auto) 1.1 10 ^3/uL (0.4-5.4); Lymphocytes % (auto) 12.1 % (10.0-50.0); Mean Corpuscular Hemoglobin 32.3 pg (28.0-32.0); Mean Corpuscular Hgb Conc. 33.9 g/dL (32.0-36.0); Mean Corpuscular Volume 95.3 fL (80.0-100.0); Monocytes # (auto) 0.9 10 ^3/uL (0-1.3); Monocytes % (auto) 10.3 % (0.0-12.0); Neutrophils % (auto) 75.5 % (37.0-80.0); Nucleated Red Blood Cells % 0.1 %; Platelet Count (auto) 346 10^3/uL (140-450); Red Blood Cells 2.98 10^6/uL (4.0-5.20); Red Cell Distribution Width 13.4 % (11.8-14.3); White Blood Cell 9.2 10^3/uL (4.4-10.8)
[2020-12-27 11:04] LABS: Albumin 2.9 g/dL (3.4-5.0); BUN/Creatinine Ratio 14.8; Calcium 8.9 mg/dL (8.5-10.1); Potassium 4.5 mmol/L (3.5-5.1)
[2020-12-27 11:07] LABS: Bilirubin, Total 0.5 mg/dL (0.2-1.0); Total Protein 6.9 g/dL (6.4-8.2)
[2020-12-27 11:41] VITALS: BP 131/56
== END 2020-12-27 11:44 | disposition home or self-care (01) ==
LOC: ER 09:04
DX: J18.9 Pneumonia, unspecified organism (principal); R10.9 Unspecified abdominal pain; E11.9 Type 2 diabetes mellitus without complications; I10 Essential (primary) hypertension; E78.5 Hyperlipidemia, unspecified; Z98.61 Coronary angioplasty status; Z90.49 Acquired absence of other specified parts of digestive tract; Z90.710 Acquired absence of both cervix and uterus; Z87.891 Personal history of nicotine dependence
CPT/HCPCS: 36415; 71045; 74176; 80053; 85025; 93005; 96374; 96375; 99285; J2270; J2405

== ENCOUNTER → 2021-01-21 | Outpatient (CLI) | payer OTHER ==
[2021-01-21 10:23] LABS: Basophils # (auto) 0 10 ^3/uL (0-0.2); Basophils % (auto) 0.9 % (0.0-2.0); Eosinophils # (auto) 0.2 10 ^3/uL (0-0.8); Hemoglobin 10.8 g/dL (12.2-16.2); Lymphocytes # (auto) 1.2 10 ^3/uL (0.4-5.4); Mean Corpuscular Hemoglobin 32.4 pg (28.0-32.0); Mean Corpuscular Hgb Conc. 33.8 g/dL (32.0-36.0); Mean Corpuscular Volume 95.8 fL (80.0-100.0); Monocytes # (auto) 0.6 10 ^3/uL (0-1.3); Monocytes % (auto) 10.9 % (0.0-12.0); Neutrophils # (auto) 3.7 10 ^3/uL (1.6-8.6); Neutrophils % (auto) 64.2 % (37.0-80.0); Nucleated Red Blood Cells % 0.1 %; Platelet Count (auto) 231 10^3/uL (140-450); Red Blood Cells 3.34 10^6/uL (4.0-5.20); Red Cell Distribution Width 14.2 % (11.8-14.3); White Blood Cell 5.8 10^3/uL (4.4-10.8)
[2021-01-21 11:00] LABS: Calcium 8.9 mg/dL (8.5-10.1); Potassium 4.5 mmol/L (3.5-5.1)
== END | disposition home or self-care (01) ==
LOC: LAB 10:08
PROVIDERS: ATTEND Internal Medicine
DX: I10 Essential (primary) hypertension (principal)
CPT/HCPCS: 36415; 80048; 85025

== ENCOUNTER → 2021-01-27 | Outpatient (CLI) | payer OTHER | END | disposition home or self-care (01) | LOC: XYW 09:01 | PROVIDERS: ATTEND Nurse Practitioner Acute Care | DX: I11.9 Hypertensive heart disease without heart failure (principal) | CPT/HCPCS: 93306 ==

== ENCOUNTER → 2021-09-13 | Outpatient (CLI) | payer OTHER ==
[2021-09-13 13:10] LABS: Albumin 3.2 g/dL (3.4-5.0); Calcium 8.8 mg/dL (8.5-10.1); Potassium 4.5 mmol/L (3.5-5.1)
[2021-09-13 13:16] LABS: BUN/Creatinine Ratio 17.3; Bilirubin, Total 0.8 mg/dL (0.2-1.0); Total Protein 6.5 g/dL (6.4-8.2)
== END | disposition home or self-care (01) ==
LOC: LAB 10:36
PROVIDERS: ATTEND Internal Medicine
DX: E78.5 Hyperlipidemia, unspecified (principal)
CPT/HCPCS: 36415; 80053; 80061

== ENCOUNTER → 2021-12-05 | Outpatient (CLI) | payer OTHER ==
[2021-12-05 14:38] LABS: Urine Bacteria FEW /hpf (None Seen); Urine Blood Negative /uL (Negative); Urine Mucus FEW (None Seen); Urine Specific Gravity 1.008 (1.001-1.035); Urine WBC 8 /hpf (0 - 5)
== END | disposition home or self-care (01) ==
LOC: LAB 13:08
PROVIDERS: ATTEND Internal Medicine
DX: N32.81 Overactive bladder (principal)
CPT/HCPCS: 81001; 87086

== ENCOUNTER → 2022-01-25 | Day surgery (SDC) | payer OTHER ==
[2022-01-23 10:52] LABS: Basophils # (auto) 0.1 10 ^3/uL (0-0.2); Basophils % (auto) 2.4 % (0.0-2.0); Eosinophils # (auto) 0.2 10 ^3/uL (0-0.8); Eosinophils % (auto) 4.1 % (0.0-7.0); Hematocrit 35.2 % (36.0-46.0); Hemoglobin 11.8 g/dL (12.2-16.2); Lymphocytes # (auto) 1.3 10 ^3/uL (0.4-5.4); Mean Corpuscular Hemoglobin 30.5 pg (28.0-32.0); Mean Corpuscular Hgb Conc. 33.6 g/dL (32.0-36.0); Mean Corpuscular Volume 90.8 fL (80.0-100.0); Monocytes # (auto) 0.5 10 ^3/uL (0-1.3); Monocytes % (auto) 9.6 % (0.0-12.0); Neutrophils # (auto) 3.2 10 ^3/uL (1.6-8.6); Neutrophils % (auto) 59.9 % (37.0-80.0); Red Blood Cells 3.88 10^6/uL (4.0-5.20); Red Cell Distribution Width 13.6 % (11.8-14.3); White Blood Cell 5.3 10^3/uL (4.4-10.8)
[2022-01-23 11:08] LABS: INR 1.06 (0.9-1.15); Partial Thromboplastin Time 35.8 sec (23.6-33.0)
[2022-01-23 11:22] LABS: Albumin 3.3 g/dL (3.4-5.0); Potassium 3.8 mmol/L (3.5-5.1)
[2022-01-23 11:27] LABS: Total Protein 6.9 g/dL (6.4-8.2)
[~2022-01-25] VITALS: Ht 172.7 cm; Wt 81.6 kg
[~2022-01-25] MED LIST changes: +ATOR20TA PO; +QUET50TA PO; -SIMV-13 PO; +SODIUM CHLORIDE LOCK 10 ML ONE; +diphenhdrAMINE HCL 50 MG/1 ML VL ONE
[2022-01-25] MEDS: fentaNYL CITRATE 100 MCG/2 ML VL ONE ×3 (15:17→15:23)
[2022-01-25] MEDS: MIDAZOLAM HCL 5 MG/ML-1ML VIAL ONE ×3 (15:17→15:28)
[2022-01-25 16:30] VITALS: BP 179/69
== END | disposition home or self-care (01) ==
LOC: GI 13:34
PROVIDERS: ATTEND Internal Medicine Gastroenterology
DX: R19.5 Other fecal abnormalities (principal); D12.0 Benign neoplasm of cecum; D12.3 Benign neoplasm of transverse colon; K57.30 Diverticulosis of large intestine without perforation or abscess without bleeding; K64.8 Other hemorrhoids; I10 Essential (primary) hypertension; E78.5 Hyperlipidemia, unspecified; F41.9 Anxiety disorder, unspecified; F32.A Depression, unspecified; Z90.710 Acquired absence of both cervix and uterus; Z86.010 Personal history of colon polyps; Z98.890 Other specified postprocedural states; Z79.899 Other long term (current) drug therapy; Z88.0 Allergy status to penicillin; Z91.041 Radiographic dye allergy status; Z20.822 Contact with and (suspected) exposure to COVID-19; Z95.5 Presence of coronary angioplasty implant and graft; Z82.49 Family history of ischemic heart disease and other diseases of the circulatory system; Z83.79 Family history of other diseases of the digestive system
CPT/HCPCS: 36415; 45385; 80053; 85025; 85610; 85730; 88305; J1200; J2250; J3010; J7030; U0003; 99152; 99153

== ENCOUNTER → 2022-08-16 | Outpatient (CLI) | payer OTHER ==
[~2022-08-16] MED LIST changes: -SODIUM CHLORIDE LOCK 10 ML ONE; -diphenhdrAMINE HCL 50 MG/1 ML VL ONE
[2022-08-16 15:02] LABS: Urine Bacteria FEW /hpf (None Seen); Urine Blood Negative /uL (Negative); Urine Specific Gravity 1.013 (1.001-1.035); Urine WBC 192 /hpf (0 - 5)
== END | disposition home or self-care (01) ==
LOC: LAB 14:13
PROVIDERS: ATTEND Internal Medicine
DX: N39.0 Urinary tract infection, site not specified (principal)
CPT/HCPCS: 81001; 87086

== ENCOUNTER 2022-10-14 10:30 | Emergency (ER) | payer OTHER ==
[~2022-10-14] VITALS: Ht 170.2 cm; Wt 84.0 kg
[2022-10-14] MEDS ORDERED: SODIUM CHLORIDE 0.9% 1,000 ML IV ONE (11:30)
[2022-10-14 12:05] LABS: Basophils # (auto) 0.1 10 ^3/uL (0-0.2); Basophils % (auto) 1.1 % (0.0-2.0); Eosinophils # (auto) 0.1 10 ^3/uL (0-0.8); Eosinophils % (auto) 1.2 % (0.0-7.0); Hematocrit 37.7 % (36.0-46.0); Hemoglobin 11.9 g/dL (12.2-16.2); Lymphocytes # (auto) 0.7 10 ^3/uL (0.4-5.4); Lymphocytes % (auto) 7.1 % (10.0-50.0); Mean Corpuscular Hemoglobin 30.3 pg (28.0-32.0); Mean Corpuscular Hgb Conc. 31.7 g/dL (32.0-36.0); Mean Corpuscular Volume 95.7 fL (80.0-100.0); Neutrophils # (auto) 8.3 10 ^3/uL (1.6-8.6); Neutrophils % (auto) 80.6 % (37.0-80.0); Red Blood Cells 3.94 10^6/uL (4.0-5.20); Red Cell Distribution Width 15.1 % (11.8-14.3); White Blood Cell 10.3 10^3/uL (4.4-10.8)
[2022-10-14 12:38] LABS: BUN/Creatinine Ratio 29.4; Calcium 8.9 mg/dL (8.5-10.1); Magnesium 2.8 mg/dL (1.6-2.6); Potassium 3.8 mmol/L (3.5-5.1)
[2022-10-14 12:41] LABS: Bilirubin, Total 0.9 mg/dL (0.2-1.0); Total Protein 6.4 g/dL (6.4-8.2)
[2022-10-14 13:44] LABS: Urine Bacteria NONE SEEN /hpf (None Seen); Urine Blood Negative /uL (Negative); Urine WBC <1 /hpf (0 - 5)
[2022-10-14 20:00] VITALS: BP 129/50
[2022-10-14] MEDS ORDERED: HYDR-4902 PO (20:31)
== END 2022-10-14 21:08 | disposition still patient (30) ==
LOC: EDBD 10:30 → ER 10:30
DX: M54.16 Radiculopathy, lumbar region (principal); M79.10 Myalgia, unspecified site; R33.9 Retention of urine, unspecified; I48.91 Unspecified atrial fibrillation; I12.9 Hypertensive chronic kidney disease with stage 1 through stage 4 chronic kidney disease, or unspecified chronic kidney disease; E11.22 Type 2 diabetes mellitus with diabetic chronic kidney disease; N18.30 Chronic kidney disease, stage 3 unspecified; E78.5 Hyperlipidemia, unspecified; Z90.49 Acquired absence of other specified parts of digestive tract; Z90.710 Acquired absence of both cervix and uterus; Z90.89 Acquired absence of other organs; Z87.891 Personal history of nicotine dependence; Z79.01 Long term (current) use of anticoagulants; Z79.82 Long term (current) use of aspirin; Z79.899 Other long term (current) drug therapy; Z88.0 Allergy status to penicillin; Z88.5 Allergy status to narcotic agent; Z91.018 Allergy to other foods
CPT/HCPCS: 36415; 51702; 72131; 80053; 81001; 83690; 83735; 85025; 93005; 96360; 96361

== ENCOUNTER 2022-10-15 14:01 | Inpatient (IN) | payer OTHER ==
[~2022-10-15] VITALS: Ht 172.7 cm; Wt 77.0 kg
[~2022-10-15 14:01] MED LIST changes: +HYDR-4902 PO
[2022-10-15] MEDS ORDERED: HYDROcodone-ACET 5/325MG TAB PO ONE (15:30)
[2022-10-15] MEDS: DexAMETHasone SOD PHOS 10MG/1ML VIAL INJ IV ONE ×2 (21:51→22:09)
[2022-10-16] MEDS ORDERED: DIPHENOXYLATE W/ATROPINE 2.5 MG TAB PO ONE (05:30)
[2022-10-16] MEDS ORDERED: HYDROcodone-ACET 5/325MG TAB PO ONE (13:30)
[2022-10-16 14:28] LABS: Basophils # (auto) 0 10 ^3/uL (0-0.2); Basophils % (auto) 0.1 % (0.0-2.0); Eosinophils # (auto) 0 10 ^3/uL (0-0.8); Hematocrit 36.8 % (36.0-46.0); Hemoglobin 12.2 g/dL (12.2-16.2); Lymphocytes # (auto) 0.5 10 ^3/uL (0.4-5.4); Lymphocytes % (auto) 6.3 % (10.0-50.0); Mean Corpuscular Hemoglobin 31.5 pg (28.0-32.0); Mean Corpuscular Hgb Conc. 33.1 g/dL (32.0-36.0); Mean Corpuscular Volume 95.2 fL (80.0-100.0); Monocytes # (auto) 0.4 10 ^3/uL (0-1.3); Monocytes % (auto) 4.6 % (0.0-12.0); Neutrophils # (auto) 6.9 10 ^3/uL (1.6-8.6); Nucleated Red Blood Cells % 0.1 %; Red Blood Cells 3.86 10^6/uL (4.0-5.20); Red Cell Distribution Width 14.8 % (11.8-14.3); White Blood Cell 7.8 10^3/uL (4.4-10.8)
[2022-10-16] MEDS ORDERED: ACETAMINOPHEN 325 MG TAB PO PRN (15:15)
[2022-10-16 16:08] LABS: Urine Bacteria FEW /hpf (None Seen); Urine Blood 2+ /uL (Negative); Urine Hyaline Cast FEW /lpf (0 - 2); Urine Mucus FEW (None Seen); Urine Specific Gravity 1.018 (1.001-1.035); Urine WBC 9 /hpf (0 - 5)
[2022-10-16] MEDS ORDERED: DEXTROSE (50%) 50ML SYRG IV PRN (16:15)
[2022-10-16] MEDS: SODIUM CHLORIDE 0.9% 1,000 ML IV SCH (16:32)
[2022-10-16 16:50] LABS: INR 1.03 (0.9-1.15); Partial Thromboplastin Time 30.8 sec (24.6-33.4)
[2022-10-16] MEDS: InsuLIN REG 1unit/0.01ml Soln (100units/ml) SC SCH ×2 (17:00→22:38)
[2022-10-16] MEDS: ACCU-CHEK COMFORT CURVE STRIP VI SCH ×2 (17:24→22:38)
[2022-10-16] MEDS ORDERED: CEFTRIAXONE SODIUM 2 GM in D5W 5% 50 ML IV SCH (18:00)
[2022-10-16 18:08] LABS: BUN/Creatinine Ratio 21.7; Calcium 8.7 mg/dL (8.5-10.1); Potassium 3.8 mmol/L (3.5-5.1)
[2022-10-16 19:09] LABS: Albumin 3.2 g/dL (3.4-5.0); Calcium 9.3 mg/dL (8.5-10.1); Potassium 4.3 mmol/L (3.5-5.1)
[2022-10-16 19:11] LABS: BUN/Creatinine Ratio 21.6
[2022-10-16 19:13] LABS: Bilirubin, Total 0.8 mg/dL (0.2-1.0); Total Protein 6.4 g/dL (6.4-8.2)
[2022-10-16] MEDS ORDERED: LORazepam 2MG/ML-1ML VIAL ONE (20:05)
[2022-10-16] MEDS ORDERED: LORazepam 2MG/ML-1ML VIAL IV ONE (20:15)
[2022-10-16] MEDS: MORPHINE SULFATE INJ 2 MG/ml SYRG IV PRN (21:20)
[2022-10-16] MEDS ORDERED: AZTREONAM 1GM INJ 2 GM in D5W 5% 100 ML IV SCH (22:00)
[2022-10-16] MEDS ORDERED: OXYBUTYNIN CHL 5 MG TAB PO SCH (22:00)
[2022-10-16] MEDS: ENALAPRIL MALEATE 2.5 MG TAB PO SCH (22:06)
[2022-10-16] MEDS: QUEtiapine FUMARATE 25 MG TAB PO SCH (22:07)
[2022-10-16] MEDS: TEMAZEPAM 15 MG CAP PO PRN (22:07)
[2022-10-16] MEDS ORDERED: cefTRIAXone 1GM/50ML D5W 50 ML IV ONE (22:45)
[2022-10-17] MEDS: SODIUM CHLORIDE 0.9% 1,000 ML IV SCH ×2 (02:15→02:37)
[2022-10-17] MEDS ORDERED: LORazepam 2MG/ML-1ML VIAL IV ONE (04:45)
[2022-10-17] MEDS: InsuLIN REG 1unit/0.01ml Soln (100units/ml) SC SCH ×4 (07:44→22:00)
[2022-10-17] MEDS: ACCU-CHEK COMFORT CURVE STRIP VI SCH ×4 (07:44→22:09)
[2022-10-17] MEDS ORDERED: cefTRIAXone 1GM/50ML D5W 50 ML IV SCH (09:00)
[2022-10-17] MEDS ORDERED: ENOXAPARIN SOD 40 MG/0.4 ML SYRINGE SC SCH (10:00)
[2022-10-17] MEDS ORDERED: ATORVASTATIN 20 MG TAB PO SCH (10:00)
[2022-10-17] MEDS: PANTOPRAZOLE 40 MG TAB PO SCH (10:28)
[2022-10-17] MEDS: CLOPIDOGREL BISULFATE 75 MG TAB PO SCH (10:28)
[2022-10-17] MEDS: ASPirin 81 mg TAB PO SCH (10:28)
[2022-10-17] MEDS: ENALAPRIL MALEATE 2.5 MG TAB PO SCH ×2 (10:29→22:18)
[2022-10-17] MEDS: METOPROLOL SUCCINATE XL 50 MG TAB PO SCH (10:29)
[2022-10-17] MEDS ORDERED: AMIODARONE HCL 150 MG in D5W 5% 100 ML IV ONE (10:45)
[2022-10-17] MEDS ORDERED: AMIODARONE 450mg/250ml AE 250 ML IV SCH (11:00)
[2022-10-17 11:13] LABS: Basophils # (auto) 0 10 ^3/uL (0-0.2); Basophils % (auto) 0.4 % (0.0-2.0); Eosinophils # (auto) 0 10 ^3/uL (0-0.8); Eosinophils % (auto) 0.1 % (0.0-7.0); Hematocrit 35.7 % (36.0-46.0); Mean Corpuscular Hemoglobin 31.8 pg (28.0-32.0); Mean Corpuscular Hgb Conc. 33.6 g/dL (32.0-36.0); Mean Corpuscular Volume 94.5 fL (80.0-100.0); Monocytes # (auto) 1.1 10 ^3/uL (0-1.3); Monocytes % (auto) 10.5 % (0.0-12.0); Neutrophils # (auto) 8.1 10 ^3/uL (1.6-8.6); Red Blood Cells 3.77 10^6/uL (4.0-5.20); Red Cell Distribution Width 14.8 % (11.8-14.3); White Blood Cell 10.2 10^3/uL (4.4-10.8)
[2022-10-17 11:28] LABS: Potassium 3.7 mmol/L (3.5-5.1)
[2022-10-17 11:30] LABS: Free T4 (Free Thyroxine) 1.27 ng/dL (0.89-1.76); T3 Total 0.68 ng/mL (0.60-1.81)
[2022-10-17 11:38] LABS: Albumin 2.9 g/dL (3.4-5.0); Calcium 9.1 mg/dL (8.5-10.1); Magnesium 2.6 mg/dL (1.6-2.6)
[2022-10-17 11:41] LABS: Bilirubin, Total 0.6 mg/dL (0.2-1.0); Total Protein 6.5 g/dL (6.4-8.2)
[2022-10-17] MEDS ORDERED: hydrALAZINE HCL 20 MG/ML VL IV ONE (13:15)
[2022-10-17] MEDS ORDERED: hydrALAZINE HCL 20 MG/ML VL IV PRN (13:15)
[2022-10-17] MEDS ORDERED: AMIODARONE HCL 200 MG TAB PO ONE (13:15)
[2022-10-17 17:52] LABS: Cholesterol 166 mg/dL (< 200); HDL Cholesterol 56 mg/dL (40-59); LDL Cholesterol 86 mg/dL (< 100); Triglycerides 125 mg/dL (< 150)
[2022-10-17] MEDS: AMIODARONE HCL 200 MG TAB PO SCH (22:17)
[2022-10-17 22:46] VITALS: BP 152/80
[2022-10-17] MEDS: TEMAZEPAM 15 MG CAP PO PRN (22:51)
[2022-10-17] MEDS: QUEtiapine FUMARATE 25 MG TAB PO SCH (22:51)
[2022-10-17 23:30] VITALS: BP 152/80
[2022-10-18] VITALS (7 sets, daily range): BP systolic 106–142; BP diastolic 64–99
[2022-10-18 06:20] LABS: Basophils # (auto) 0 10 ^3/uL (0-0.2); Basophils % (auto) 0.2 % (0.0-2.0); Eosinophils # (auto) 0.1 10 ^3/uL (0-0.8); Hematocrit 35.9 % (36.0-46.0); Hemoglobin 11.9 g/dL (12.2-16.2); Lymphocytes # (auto) 1.2 10 ^3/uL (0.4-5.4); Lymphocytes % (auto) 15.2 % (10.0-50.0); Mean Corpuscular Hemoglobin 31.2 pg (28.0-32.0); Mean Corpuscular Hgb Conc. 33.2 g/dL (32.0-36.0); Monocytes % (auto) 12.7 % (0.0-12.0); Neutrophils # (auto) 5.4 10 ^3/uL (1.6-8.6); Neutrophils % (auto) 70.9 % (37.0-80.0); Nucleated Red Blood Cells % 0.1 %; Red Blood Cells 3.81 10^6/uL (4.0-5.20); Red Cell Distribution Width 14.6 % (11.8-14.3); White Blood Cell 7.7 10^3/uL (4.4-10.8)
[2022-10-18 06:27] LABS: Potassium 3.9 mmol/L (3.5-5.1)
[2022-10-18 06:34] LABS: Albumin 2.7 g/dL (3.4-5.0); Bilirubin, Total 0.6 mg/dL (0.2-1.0); Calcium 8.7 mg/dL (8.5-10.1); Total Protein 5.6 g/dL (6.4-8.2)
[2022-10-18] MEDS ORDERED: KETOROLAC TROMETH 30 MG/ML 1ML VIAL IV ONE (09:15)
[2022-10-18] MEDS ORDERED: LACTULOSE 20Gm/30ML SOLN PO ONE (09:30)
[2022-10-18] MEDS ORDERED: cefTRIAXone SOD 1,000 MG VL IM ONE (09:30)
[2022-10-18] MEDS ORDERED: METHOCARBAMOL 500 MG TAB PO ONE (09:30)
[2022-10-18] MEDS: METOPROLOL SUCCINATE XL 50 MG TAB PO SCH (10:00)
[2022-10-18] MEDS: ENALAPRIL MALEATE 2.5 MG TAB PO SCH ×2 (10:00→21:47)
[2022-10-18] MEDS: CLOPIDOGREL BISULFATE 75 MG TAB PO SCH (10:01)
[2022-10-18] MEDS: AMIODARONE HCL 200 MG TAB PO SCH ×2 (10:01→21:48)
[2022-10-18] MEDS: ASPirin 81 mg TAB PO SCH (10:01)
[2022-10-18] MEDS: PANTOPRAZOLE 40 MG TAB PO SCH (10:01)
[2022-10-18] MEDS: methylPREDNISolone SOD SUCC 125 MG/2 ML VL IV ONE ×2 (10:05→17:18)
[2022-10-18] MEDS: InsuLIN REG 1unit/0.01ml Soln (100units/ml) SC SCH ×3 (11:33→21:46)
[2022-10-18] MEDS: ACCU-CHEK COMFORT CURVE STRIP VI SCH ×3 (11:33→21:46)
[2022-10-18] MEDS: HYDROcodone-ACET 5/325MG TAB PO PRN ×2 (16:57→23:26)
[2022-10-18] MEDS: METHOCARBAMOL 500 MG TAB PO SCH ×2 (18:03→21:49)
[2022-10-18] MEDS: QUEtiapine FUMARATE 25 MG TAB PO SCH (21:47)
[2022-10-19] VITALS (7 sets, daily range): BP systolic 98–117; BP diastolic 54–70
[2022-10-19] MEDS: MORPHINE SULFATE INJ 2 MG/ml SYRG IV PRN ×2 (01:45→09:28)
[2022-10-19] MEDS: METHOCARBAMOL 500 MG TAB PO SCH ×4 (06:05→22:00)
[2022-10-19] MEDS: ACCU-CHEK COMFORT CURVE STRIP VI SCH ×4 (06:30→22:00)
[2022-10-19] MEDS: InsuLIN REG 1unit/0.01ml Soln (100units/ml) SC SCH ×4 (06:30→22:00)
[2022-10-19] MEDS: CLOPIDOGREL BISULFATE 75 MG TAB PO SCH (09:30)
[2022-10-19] MEDS: ASPirin 81 mg TAB PO SCH (09:30)
[2022-10-19] MEDS: METOPROLOL SUCCINATE XL 50 MG TAB PO SCH (09:31)
[2022-10-19] MEDS: AMIODARONE HCL 200 MG TAB PO SCH ×2 (09:31→22:00)
[2022-10-19] MEDS: PANTOPRAZOLE 40 MG TAB PO SCH (09:31)
[2022-10-19] MEDS: ENALAPRIL MALEATE 2.5 MG TAB PO SCH ×2 (09:32→22:00)
[2022-10-19] MEDS ORDERED: GASTROGRAFIN 30 ML SOL ONE (11:44)
[2022-10-19] MEDS: HYDROcodone-ACET 5/325MG TAB PO PRN (14:51)
[2022-10-19] MEDS ORDERED: IOHEXOL 300 MG/ML 100ML BOTTLE IJ ONE (18:24)
[2022-10-19] MEDS: QUEtiapine FUMARATE 25 MG TAB PO SCH (22:00)
[2022-10-20] MEDS: TEMAZEPAM 15 MG CAP PO PRN (00:34)
[2022-10-20 05:00] VITALS: BP_SYST 120; BP_SYST 134; BP_DIAS 57; BP_DIAS 76
[2022-10-20] MEDS: METHOCARBAMOL 500 MG TAB PO SCH ×4 (06:00→22:25)
[2022-10-20] MEDS: InsuLIN REG 1unit/0.01ml Soln (100units/ml) SC SCH ×4 (06:44→22:00)
[2022-10-20] MEDS: ACCU-CHEK COMFORT CURVE STRIP VI SCH ×4 (06:44→22:27)
[2022-10-20] MEDS ORDERED: FLEET MINERAL OIL ENEMA 133 ML PR ONE (07:00)
[2022-10-20 08:55] VITALS: BP 116/66
[2022-10-20] MEDS: CLOPIDOGREL BISULFATE 75 MG TAB PO SCH (09:40)
[2022-10-20] MEDS: ASPirin 81 mg TAB PO SCH (09:40)
[2022-10-20] MEDS: HYDROCORTISONE ACET 25 MG RECTAL SUPP PR SCH ×2 (09:41→22:26)
[2022-10-20] MEDS: PANTOPRAZOLE 40 MG TAB PO SCH (09:41)
[2022-10-20] MEDS: METOPROLOL SUCCINATE XL 50 MG TAB PO SCH (09:42)
[2022-10-20] MEDS: AMIODARONE HCL 200 MG TAB PO SCH ×2 (09:42→22:24)
[2022-10-20] MEDS: ENALAPRIL MALEATE 2.5 MG TAB PO SCH ×2 (09:42→22:26)
[2022-10-20 12:30] VITALS: BP 126/64
[2022-10-20] MEDS: LACTULOSE 20Gm/30ML SOLN PO PRN (12:53)
[2022-10-20 15:30] VITALS: BP 137/66
[2022-10-20 21:30] VITALS: BP 124/55
[2022-10-20] MEDS: QUEtiapine FUMARATE 25 MG TAB PO SCH (22:25)
[2022-10-21 05:00] VITALS: BP 141/72
[2022-10-21] MEDS: METHOCARBAMOL 500 MG TAB PO SCH ×5 (05:21→22:00)
[2022-10-21] MEDS: HYDROcodone-ACET 5/325MG TAB PO PRN (05:35)
[2022-10-21] MEDS: ACCU-CHEK COMFORT CURVE STRIP VI SCH ×4 (06:16→20:38)
[2022-10-21] MEDS: InsuLIN REG 1unit/0.01ml Soln (100units/ml) SC SCH ×4 (06:17→20:37)
[2022-10-21 06:31] LABS: Basophils # (auto) 0 10 ^3/uL (0-0.2); Basophils % (auto) 0.5 % (0.0-2.0); Eosinophils # (auto) 0.4 10 ^3/uL (0-0.8); Eosinophils % (auto) 5.3 % (0.0-7.0); Hematocrit 33.5 % (36.0-46.0); Hemoglobin 11.1 g/dL (12.2-16.2); Lymphocytes # (auto) 1.3 10 ^3/uL (0.4-5.4); Mean Corpuscular Hemoglobin 31.8 pg (28.0-32.0); Mean Corpuscular Hgb Conc. 33.2 g/dL (32.0-36.0); Mean Corpuscular Volume 95.6 fL (80.0-100.0); Monocytes # (auto) 0.9 10 ^3/uL (0-1.3); Monocytes % (auto) 12.7 % (0.0-12.0); Neutrophils # (auto) 4.5 10 ^3/uL (1.6-8.6); Neutrophils % (auto) 63.5 % (37.0-80.0); Red Blood Cells 3.51 10^6/uL (4.0-5.20); Red Cell Distribution Width 14.6 % (11.8-14.3); White Blood Cell 7.1 10^3/uL (4.4-10.8)
[2022-10-21 07:02] LABS: Potassium 4.1 mmol/L (3.5-5.1)
[2022-10-21 07:08] LABS: BUN/Creatinine Ratio 23.7; Calcium 8.1 mg/dL (8.5-10.1)
[2022-10-21 09:00] VITALS: BP 137/61
[2022-10-21] MEDS: CLOPIDOGREL BISULFATE 75 MG TAB PO SCH (10:00)
[2022-10-21] MEDS: METOPROLOL SUCCINATE XL 50 MG TAB PO SCH (10:00)
[2022-10-21] MEDS: PANTOPRAZOLE 40 MG TAB PO SCH (10:00)
[2022-10-21] MEDS: ASPirin 81 mg TAB PO SCH (10:00)
[2022-10-21] MEDS: HYDROCORTISONE ACET 25 MG RECTAL SUPP PR SCH ×2 (10:00→20:37)
[2022-10-21] MEDS: AMIODARONE HCL 200 MG TAB PO SCH ×2 (10:00→20:36)
[2022-10-21] MEDS: ENALAPRIL MALEATE 2.5 MG TAB PO SCH ×2 (10:00→20:37)
[2022-10-21 13:00] VITALS: BP 141/57
[2022-10-21 17:00] VITALS: BP 131/68
[2022-10-21 20:00] VITALS: BP 137/61
[2022-10-21] MEDS: QUEtiapine FUMARATE 25 MG TAB PO SCH (20:36)
[2022-10-21 22:00] VITALS: BP 128/60
[2022-10-22 05:00] VITALS: BP 162/69
[2022-10-22] MEDS: ACCU-CHEK COMFORT CURVE STRIP VI SCH ×4 (05:50→22:06)
[2022-10-22] MEDS: InsuLIN REG 1unit/0.01ml Soln (100units/ml) SC SCH ×4 (05:50→22:00)
[2022-10-22] MEDS: LACTULOSE 20Gm/30ML SOLN PO PRN ×2 (06:57→13:16)
[2022-10-22] MEDS: PANTOPRAZOLE 40 MG TAB PO SCH (08:19)
[2022-10-22] MEDS: ENALAPRIL MALEATE 2.5 MG TAB PO SCH (08:19)
[2022-10-22] MEDS: AMIODARONE HCL 200 MG TAB PO SCH ×3 (08:20→22:40)
[2022-10-22] MEDS: ASPirin 81 mg TAB PO SCH (08:20)
[2022-10-22] MEDS: METOPROLOL SUCCINATE XL 50 MG TAB PO SCH (08:20)
[2022-10-22] MEDS: CLOPIDOGREL BISULFATE 75 MG TAB PO SCH (08:20)
[2022-10-22] MEDS: HYDROCORTISONE ACET 25 MG RECTAL SUPP PR SCH ×2 (08:21→22:00)
[2022-10-22] MEDS: HYDROcodone-ACET 5/325MG TAB PO PRN (08:21)
[2022-10-22 09:00] VITALS: BP 138/54
[2022-10-22] MEDS ORDERED: GOLYTELY 4L KIT PO ONE (12:00)
[2022-10-22] MEDS: METHOCARBAMOL 500 MG TAB PO SCH ×4 (13:14→22:40)
[2022-10-22] MEDS: SODIUM CHLORIDE 0.9% 1,000 ML IV SCH (13:16)
[2022-10-22 17:00] VITALS: BP 186/67
[2022-10-22] MEDS ORDERED: cloNIDine HCL 0.1 MG TAB PO ONE (17:45)
[2022-10-22] MEDS ORDERED: LOSARTAN POTASSIUM 50 MG TAB PO ONE (17:45)
[2022-10-22] MEDS ORDERED: cloNIDine HCL 0.1 MG TAB PO PRN (17:45)
[2022-10-22] MEDS ORDERED: hydrALAZINE HCL 25 MG TAB PO ONE (17:45)
[2022-10-22 19:02] VITALS: BP 148/62
[2022-10-22] MEDS: QUEtiapine FUMARATE 25 MG TAB PO SCH ×2 (22:05→22:40)
[2022-10-22 22:19] VITALS: BP 161/67
[2022-10-23 05:00] VITALS: BP 136/59
[2022-10-23] MEDS: METHOCARBAMOL 500 MG TAB PO SCH ×4 (06:00→22:58)
[2022-10-23] MEDS: ACCU-CHEK COMFORT CURVE STRIP VI SCH ×4 (06:37→23:24)
[2022-10-23] MEDS: InsuLIN REG 1unit/0.01ml Soln (100units/ml) SC SCH ×4 (06:37→22:00)
[2022-10-23] MEDS: SODIUM CHLORIDE 0.9% 1,000 ML IV SCH ×4 (06:37→19:38)
[2022-10-23 08:30] VITALS: BP 146/52
[2022-10-23 09:00] VITALS: BP 146/52
[2022-10-23] MEDS: CLOPIDOGREL BISULFATE 75 MG TAB PO SCH (09:48)
[2022-10-23] MEDS: PANTOPRAZOLE 40 MG TAB PO SCH (09:48)
[2022-10-23] MEDS: METOPROLOL SUCCINATE XL 50 MG TAB PO SCH (09:49)
[2022-10-23] MEDS: ASPirin 81 mg TAB PO SCH (09:49)
[2022-10-23] MEDS: LOSARTAN POTASSIUM 50 MG TAB PO SCH (09:50)
[2022-10-23] MEDS: AMIODARONE HCL 200 MG TAB PO SCH ×2 (09:50→22:57)
[2022-10-23] MEDS: HYDROCORTISONE ACET 25 MG RECTAL SUPP PR SCH ×2 (10:00→22:58)
[2022-10-23 13:00] VITALS: BP 126/91
[2022-10-23] MEDS ORDERED: TAMSULOSIN HYDROCHLORIDE 0.4 MG CAP PO ONE (15:00)
[2022-10-23 17:00] VITALS: BP 103/47
[2022-10-23 20:55] VITALS: BP 127/41
[2022-10-23] MEDS ORDERED: LACTULOSE 20Gm/30ML SOLN PO ONE (21:30)
[2022-10-23] MEDS ORDERED: BISACODYL 5 MG EC TAB PO ONE (21:30)
[2022-10-23] MEDS ORDERED: QUEtiapine FUMARATE 25 MG TAB PO SCH (22:00)
[2022-10-24 05:00] VITALS: BP 139/55
[2022-10-24 06:04] LABS: Basophils # (auto) 0.1 10 ^3/uL (0-0.2); Basophils % (auto) 0.9 % (0.0-2.0); Eosinophils # (auto) 0.4 10 ^3/uL (0-0.8); Eosinophils % (auto) 6.3 % (0.0-7.0); Hematocrit 34.6 % (36.0-46.0); Hemoglobin 11.4 g/dL (12.2-16.2); Lymphocytes # (auto) 1.5 10 ^3/uL (0.4-5.4); Mean Corpuscular Hgb Conc. 32.9 g/dL (32.0-36.0); Mean Corpuscular Volume 97.3 fL (80.0-100.0); Monocytes # (auto) 0.9 10 ^3/uL (0-1.3); Monocytes % (auto) 14.6 % (0.0-12.0); Neutrophils # (auto) 3.1 10 ^3/uL (1.6-8.6); Neutrophils % (auto) 52.2 % (37.0-80.0); Red Blood Cells 3.56 10^6/uL (4.0-5.20); Red Cell Distribution Width 14.7 % (11.8-14.3); White Blood Cell 5.9 10^3/uL (4.4-10.8)
[2022-10-24] MEDS: METHOCARBAMOL 500 MG TAB PO SCH ×3 (06:12→18:00)
[2022-10-24] MEDS: InsuLIN REG 1unit/0.01ml Soln (100units/ml) SC SCH ×3 (06:13→17:00)
[2022-10-24] MEDS: ACCU-CHEK COMFORT CURVE STRIP VI SCH ×3 (06:13→18:09)
[2022-10-24 06:18] LABS: Potassium 3.9 mmol/L (3.5-5.1)
[2022-10-24 06:20] LABS: Folate (Folic Acid) 10.79 ng/mL (5.38-24)
[2022-10-24 06:26] LABS: Albumin 2.7 g/dL (3.4-5.0); BUN/Creatinine Ratio 8.7; Bilirubin, Total 0.6 mg/dL (0.2-1.0); Calcium 8.4 mg/dL (8.5-10.1); Magnesium 2.7 mg/dL (1.6-2.6); Total Protein 5.6 g/dL (6.4-8.2)
[2022-10-24 09:01] VITALS: BP 135/71
[2022-10-24] MEDS: HYDROCORTISONE ACET 25 MG RECTAL SUPP PR SCH (10:00)
[2022-10-24] MEDS: CLOPIDOGREL BISULFATE 75 MG TAB PO SCH (11:28)
[2022-10-24] MEDS: ASPirin 81 mg TAB PO SCH (11:28)
[2022-10-24] MEDS: PANTOPRAZOLE 40 MG TAB PO SCH (11:28)
[2022-10-24] MEDS: AMIODARONE HCL 200 MG TAB PO SCH (11:29)
[2022-10-24] MEDS: LOSARTAN POTASSIUM 50 MG TAB PO SCH (11:30)
[2022-10-24] MEDS: METOPROLOL SUCCINATE XL 50 MG TAB PO SCH (11:30)
[2022-10-24 12:33] VITALS: BP 131/69
[2022-10-24 13:58] VITALS: BP 131/69
[2022-10-24 17:00] VITALS: BP 133/69
== END 2022-10-24 20:18 | DRG 695 ==
LOC: ER 14:01 → TELE 10-16 15:13 → TELE-WESTW 10-17 22:24
PROVIDERS: ADMIT Registered Nurse; ATTEND Internal Medicine
DX: R33.9 Retention of urine, unspecified (principal); G93.41 Metabolic encephalopathy; D68.59 Other primary thrombophilia; N30.00 Acute cystitis without hematuria; I48.91 Unspecified atrial fibrillation; M54.16 Radiculopathy, lumbar region; E78.5 Hyperlipidemia, unspecified; I16.0 Hypertensive urgency; Z20.822 Contact with and (suspected) exposure to COVID-19; E11.22 Type 2 diabetes mellitus with diabetic chronic kidney disease; E11.51 Type 2 diabetes mellitus with diabetic peripheral angiopathy without gangrene; F03.90 Unspecified dementia, unspecified severity, without behavioral disturbance, psychotic disturbance, mood disturbance, and anxiety; F29 Unspecified psychosis not due to a substance or known physiological condition; I12.9 Hypertensive chronic kidney disease with stage 1 through stage 4 chronic kidney disease, or unspecified chronic kidney disease; I25.10 Atherosclerotic heart disease of native coronary artery without angina pectoris; K56.41 Fecal impaction; N13.9 Obstructive and reflux uropathy, unspecified; N18.9 Chronic kidney disease, unspecified; Z63.4 Disappearance and death of family member; Z78.1 Physical restraint status; Z79.82 Long term (current) use of aspirin; Z79.899 Other long term (current) drug therapy; Z82.3 Family history of stroke; Z82.49 Family history of ischemic heart disease and other diseases of the circulatory system; Z85.3 Personal history of malignant neoplasm of breast; Z87.891 Personal history of nicotine dependence; Z88.0 Allergy status to penicillin; Z90.710 Acquired absence of both cervix and uterus; Z98.61 Coronary angioplasty status; Z90.49 Acquired absence of other specified parts of digestive tract; Z88.5 Allergy status to narcotic agent
CPT/HCPCS: 36415; 51702; 70450; 71045; 72131; 72148; 74018; 74176; 74177; 76775; 80048; 80053; 80061; 81001; 82140; 82746; 82962; 83036; 83690; 83735; 84439; 84443; 84480; 85025; 85610; 85730; 87086; 87426; 87493; 93005; 93306; 96360; 96361; 96374; 97110; 97116; 97163; 97530; G0378; J0696; J1100; J1815; J1885; J7060

== ENCOUNTER 2022-12-14 15:40 | Inpatient (IN) | payer OTHER ==
[~2022-12-14] VITALS: Ht 172.7 cm; Wt 80.2 kg
[~2022-12-14 15:40] MED LIST changes: -OXYB5TAB61 PO
[2022-12-14] MEDS ORDERED: ASPirin 81 mg TAB PO ONE (16:00)
[2022-12-14 16:51] LABS: Albumin 3.6 g/dL (3.4-5.0); Anion Gap 4 (5-15); Aspartate Aminotransferase 19 U/L (15-37); BUN/Creatinine Ratio 18.1; Blood Urea Nitrogen 25 mg/dL (7-18); Calcium 8.8 mg/dL (8.5-10.1); Carbon Dioxide 24 mmol/L (21-32); Chloride 111 mmol/L (98-107); GFR African American 48 mL/min; GFR Non-African American 39 mL/min; Glucose 74 mg/dL (74-106); Magnesium 2.5 mg/dL (1.6-2.6); Potassium 4.6 mmol/L (3.5-5.1); Sodium 139 mmol/L (136-145)
[2022-12-14 16:54] LABS: Alanine Aminotransferase 24 U/L (13-56); Alkaline Phosphatase 84 U/L (45-117); Bilirubin, Total 0.6 mg/dL (0.2-1.0); Total Protein 6.8 g/dL (6.4-8.2)
[2022-12-14 17:44] LABS: Hematocrit 39.7 % (36.0-46.0); Hemoglobin 13.1 g/dL (12.2-16.2); Mean Corpuscular Hemoglobin 31.7 pg (28.0-32.0); Mean Corpuscular Volume 96.3 fL (80.0-100.0); Red Blood Cells 4.12 10^6/uL (4.0-5.20); Red Cell Distribution Width 14.4 % (11.8-14.3); White Blood Cell 9.3 10^3/uL (4.4-10.8)
[2022-12-14 17:45] LABS: Basophils % (manual) 0 (0.0-2.0); Blast Cells 0; Metamyelocytes % 0; Myelocytes % 0; Promyelocytes % 0; Reactive Lymphocytes 0
[2022-12-14 18:57] LABS: Band Neutrophils % (manual) 2; Eosinophils % (manual) 1 (0-7); Lymphocytes % (manual) 13 (10.0-50.0); Monocytes % (manual) 9 (0-12)
[2022-12-14] MEDS ORDERED: ACETAMINOPHEN 325 MG TAB PO PRN (20:45)
[2022-12-14] MEDS ORDERED: ONDANSETRON HCL 4 MG/2 ML VIAL IV PRN (20:45)
[2022-12-14] MEDS ORDERED: DOCUSATE SOD 100 MG CAP PO PRN (20:45)
[2022-12-14] MEDS ORDERED: hydrALAZINE HCL 20 MG/ML VL IV PRN (20:45)
[2022-12-14] MEDS: METOPROLOL TARTRATE 25 MG TAB PO SCH (22:52)
[2022-12-14] MEDS: ATORVASTATIN 20 MG TAB PO SCH (22:52)
[2022-12-14] MEDS: APIXABAN 2.5 MG TAB PO SCH (22:52)
[2022-12-14] MEDS: SODIUM CHLOR 0.9% PF (SALINE LOCK) 10ML VIAL/SYR IV SCH (22:59)
[2022-12-14] MEDS ORDERED: NITROGLYCERIN 0.4 MG SL TAB SL PRN (23:15)
[2022-12-14] MEDS ORDERED: MORPHINE SULFATE INJ 2 MG/ml SYRG IV PRN (23:15)
[2022-12-15] MEDS: SODIUM CHLOR 0.9% PF (SALINE LOCK) 10ML VIAL/SYR IV SCH ×3 (06:00→22:00)
[2022-12-15 06:39] LABS: Albumin 2.8 g/dL (3.4-5.0); Anion Gap 3 (5-15); Blood Urea Nitrogen 20 mg/dL (7-18); Calcium 8.6 mg/dL (8.5-10.1); Carbon Dioxide 21 mmol/L (21-32); Chloride 114 mmol/L (98-107); Glucose 85 mg/dL (74-106); Sodium 138 mmol/L (136-145)
[2022-12-15 06:41] LABS: BUN/Creatinine Ratio 15.9; GFR African American 53 mL/min; GFR Non-African American 44 mL/min
[2022-12-15 06:44] LABS: Alanine Aminotransferase 24 U/L (13-56); Alkaline Phosphatase 69 U/L (45-117); Aspartate Aminotransferase 24 U/L (15-37); Bilirubin, Total 0.8 mg/dL (0.2-1.0); Total Protein 6.1 g/dL (6.4-8.2)
[2022-12-15 08:11] LABS: Basophils # (auto) 0.1 10 ^3/uL (0-0.2); Basophils % (auto) 1.2 % (0.0-2.0); Eosinophils # (auto) 0.3 10 ^3/uL (0-0.8); Hematocrit 34.7 % (36.0-46.0); Hemoglobin 11.9 g/dL (12.2-16.2); Lymphocytes # (auto) 1.3 10 ^3/uL (0.4-5.4); Lymphocytes % (auto) 28.2 % (10.0-50.0); Mean Corpuscular Hemoglobin 32.9 pg (28.0-32.0); Mean Corpuscular Hgb Conc. 34.4 g/dL (32.0-36.0); Mean Corpuscular Volume 95.8 fL (80.0-100.0); Monocytes # (auto) 0.7 10 ^3/uL (0-1.3); Neutrophils # (auto) 2.4 10 ^3/uL (1.6-8.6); Neutrophils % (auto) 50.6 % (37.0-80.0); Red Blood Cells 3.62 10^6/uL (4.0-5.20); Red Cell Distribution Width 14.6 % (11.8-14.3); White Blood Cell 4.7 10^3/uL (4.4-10.8)
[2022-12-15] MEDS: ASPirin 81 mg TAB PO SCH (10:37)
[2022-12-15] MEDS: APIXABAN 2.5 MG TAB PO SCH (10:38)
[2022-12-15] MEDS: METOPROLOL TARTRATE 25 MG TAB PO SCH (10:38)
[2022-12-15 14:27] LABS: Urine Bacteria NONE SEEN /hpf (None Seen); Urine Blood Negative /uL (Negative); Urine Specific Gravity 1.009 (1.001-1.035); Urine WBC 3 /hpf (0 - 5)
[2022-12-15 16:44] VITALS: BP 137/42
[2022-12-15 20:05] VITALS: BP 133/55
[2022-12-15] MEDS: ATORVASTATIN 20 MG TAB PO SCH ×2 (21:45→22:30)
[2022-12-15 22:00] VITALS: BP 133/55
[2022-12-16 05:00] VITALS: BP 144/45
[2022-12-16] MEDS: SODIUM CHLOR 0.9% PF (SALINE LOCK) 10ML VIAL/SYR IV SCH ×3 (06:07→21:26)
[2022-12-16 08:00] VITALS: BP 158/48
[2022-12-16] MEDS ORDERED: CLOPIDOGREL BISULFATE 75 MG TAB PO SCH (10:00)
[2022-12-16 12:00] VITALS: BP 156/55
[2022-12-16 16:00] VITALS: BP 142/52
[2022-12-16] MEDS: ASPirin 81 mg TAB PO SCH (17:24)
[2022-12-16] MEDS: LOSARTAN POTASSIUM 25 MG TAB PO SCH (17:24)
[2022-12-16] MEDS: ATORVASTATIN 20 MG TAB PO SCH (21:25)
[2022-12-16] MEDS: QUEtiapine FUMARATE 25 MG TAB PO SCH (21:26)
[2022-12-16 22:00] VITALS: BP 105/43
[2022-12-17 05:00] VITALS: BP 129/48
[2022-12-17] MEDS: SODIUM CHLOR 0.9% PF (SALINE LOCK) 10ML VIAL/SYR IV SCH ×3 (06:26→21:21)
[2022-12-17 08:00] VITALS: BP 142/52
[2022-12-17 08:30] VITALS: BP 113/68
[2022-12-17] MEDS: ASPirin 81 mg TAB PO SCH (09:29)
[2022-12-17] MEDS: LOSARTAN POTASSIUM 25 MG TAB PO SCH (09:30)
[2022-12-17] MEDS: POLYETHYLENE GLYCOL 17 GM PWDR PO SCH (09:31)
[2022-12-17 13:00] VITALS: BP 127/54
[2022-12-17 17:00] VITALS: BP 125/50
[2022-12-17] MEDS: QUEtiapine FUMARATE 25 MG TAB PO SCH (21:20)
[2022-12-17] MEDS: ATORVASTATIN 20 MG TAB PO SCH (21:20)
[2022-12-17 22:00] VITALS: BP 119/53
[2022-12-18 05:00] VITALS: BP 116/62
[2022-12-18] MEDS: SODIUM CHLOR 0.9% PF (SALINE LOCK) 10ML VIAL/SYR IV SCH (05:56)
[2022-12-18] MEDS ORDERED: ADENOSINE 67 MG in GIVE UN-DILUTED 0 ML IV STA (07:39)
[2022-12-18 09:00] VITALS: BP 123/37
[2022-12-18 09:07] VITALS: BP 176/73
[2022-12-18] MEDS ORDERED: CLOP75TA28 PO (10:05)
[2022-12-18] MEDS: ASPirin 81 mg TAB PO SCH (10:18)
[2022-12-18] MEDS: POLYETHYLENE GLYCOL 17 GM PWDR PO SCH (10:18)
[2022-12-18] MEDS: LOSARTAN POTASSIUM 25 MG TAB PO SCH (10:19)
[2022-12-18 13:00] VITALS: BP 145/42
== END 2022-12-18 16:05 | disposition home health service (06) | DRG 311 ==
LOC: ER 15:40 → TELE 23:06 → TELE-CENTR 12-15 08:09
PROVIDERS: ADMIT Nurse Practitioner Family; ATTEND Internal Medicine
DX: I24.9 Acute ischemic heart disease, unspecified (principal); I16.1 Hypertensive emergency; N17.9 Acute kidney failure, unspecified; I12.9 Hypertensive chronic kidney disease with stage 1 through stage 4 chronic kidney disease, or unspecified chronic kidney disease; N18.30 Chronic kidney disease, stage 3 unspecified; I73.9 Peripheral vascular disease, unspecified; G62.9 Polyneuropathy, unspecified; E78.5 Hyperlipidemia, unspecified; I48.0 Paroxysmal atrial fibrillation; I34.0 Nonrheumatic mitral (valve) insufficiency; Z20.822 Contact with and (suspected) exposure to COVID-19; F17.200 Nicotine dependence, unspecified, uncomplicated; R26.9 Unspecified abnormalities of gait and mobility; I25.10 Atherosclerotic heart disease of native coronary artery without angina pectoris; Z88.5 Allergy status to narcotic agent; Z88.0 Allergy status to penicillin; Z95.5 Presence of coronary angioplasty implant and graft; Z82.49 Family history of ischemic heart disease and other diseases of the circulatory system; Z88.8 Allergy status to other drugs, medicaments and biological substances; Z79.899 Other long term (current) drug therapy; Z79.1 Long term (current) use of non-steroidal anti-inflammatories (NSAID); Z90.711 Acquired absence of uterus with remaining cervical stump; Z82.3 Family history of stroke; Z79.02 Long term (current) use of antithrombotics/antiplatelets; Z79.82 Long term (current) use of aspirin; Z86.73 Personal history of transient ischemic attack (TIA), and cerebral infarction without residual deficits; Z87.440 Personal history of urinary (tract) infections; Z91.81 History of falling
CPT/HCPCS: 36415; 70450; 70551; 71046; 78452; 80053; 81001; 83735; 83880; 84484; 85007; 85027; 87426; 93005; 93017; 93886; 93925; 96374; 96375; 97163; G0378; J0153; J2405

== ENCOUNTER 2022-12-26 17:43 | Inpatient (IN) | payer OTHER ==
[~2022-12-26] VITALS: Ht 172.7 cm; Wt 83.0 kg
[~2022-12-26 17:43] MED LIST changes: -ASPI81CH43 PO; -HYDR-4902 PO
[2022-12-26] MEDS ORDERED: QUET50TA27 PO (21:24)
[2022-12-26] MEDS ORDERED: ATOR20TA50 PO (21:24)
[2022-12-26] MEDS ORDERED: METO25TA93 PO (21:24)
[2022-12-26] MEDS ORDERED: AMIO200T4 PO (21:24)
[2022-12-26] MEDS ORDERED: OXYB5TAB24 PO (21:24)
[2022-12-26] MEDS ORDERED: NITROGLYCERIN 0.4 MG SL TAB SL PRN (21:30)
[2022-12-26] MEDS ORDERED: MORPHINE SULFATE INJ 2 MG/ml SYRG IV PRN (21:30)
[2022-12-26] MEDS ORDERED: DOCUSATE SOD 100 MG CAP PO PRN (21:30)
[2022-12-26] MEDS ORDERED: ONDANSETRON HCL 4 MG/2 ML VIAL IV PRN (21:30)
[2022-12-26] MEDS ORDERED: SODIUM CHLORIDE 0.9% 1,000 ML IV SCH (21:30)
[2022-12-26] MEDS ORDERED: ACETAMINOPHEN 325 MG TAB PO PRN (21:30)
[2022-12-26 21:51] LABS: Basophils # (auto) 0.1 10 ^3/uL (0-0.2); Eosinophils # (auto) 0.4 10 ^3/uL (0-0.8); Hemoglobin 11.2 g/dL (12.2-16.2); Lymphocytes # (auto) 1.8 10 ^3/uL (0.4-5.4); Lymphocytes % (auto) 29.1 % (10.0-50.0); Mean Corpuscular Hemoglobin 32.3 pg (28.0-32.0); Mean Corpuscular Hgb Conc. 33.9 g/dL (32.0-36.0); Mean Corpuscular Volume 95.4 fL (80.0-100.0); Monocytes # (auto) 0.7 10 ^3/uL (0-1.3); Monocytes % (auto) 11.8 % (0.0-12.0); Neutrophils # (auto) 3.2 10 ^3/uL (1.6-8.6); Neutrophils % (auto) 51.1 % (37.0-80.0); Nucleated Red Blood Cells % 0.1 %; Red Blood Cells 3.46 10^6/uL (4.0-5.20); Red Cell Distribution Width 14.1 % (11.8-14.3); White Blood Cell 6.2 10^3/uL (4.4-10.8)
[2022-12-26] MEDS ORDERED: METOPROLOL SUCCINATE XL 50 MG TAB PO SCH (22:00)
[2022-12-26] MEDS ORDERED: ATORVASTATIN 20 MG TAB PO SCH (22:00)
[2022-12-26 22:06] LABS: Albumin 2.9 g/dL (3.4-5.0); BUN/Creatinine Ratio 18.1; Calcium 8.2 mg/dL (8.5-10.1); Potassium 4.3 mmol/L (3.5-5.1)
[2022-12-26 22:08] LABS: INR 0.97 (0.9-1.15); Partial Thromboplastin Time 32.9 sec (24.6-33.4)
[2022-12-26 22:09] LABS: Bilirubin, Total 0.3 mg/dL (0.2-1.0); Total Protein 6.2 g/dL (6.4-8.2)
[2022-12-26 22:24] VITALS: BP 144/51
[2022-12-26] MEDS: AMIODARONE HCL 200 MG TAB PO SCH (23:01)
[2022-12-26] MEDS: QUEtiapine FUMARATE 25 MG TAB PO SCH (23:01)
[2022-12-27] VITALS (12 sets, daily range): BP systolic 92–140; BP diastolic 39–63
[2022-12-27] MEDS ORDERED: POLY335015 PO (02:10)
[2022-12-27 05:52] LABS: Basophils # (auto) 0.1 10 ^3/uL (0-0.2); Basophils % (auto) 1.2 % (0.0-2.0); Eosinophils # (auto) 0.5 10 ^3/uL (0-0.8); Eosinophils % (auto) 9.7 % (0.0-7.0); Hematocrit 32.5 % (36.0-46.0); Hemoglobin 10.8 g/dL (12.2-16.2); Lymphocytes % (auto) 40.8 % (10.0-50.0); Mean Corpuscular Hemoglobin 32.3 pg (28.0-32.0); Mean Corpuscular Hgb Conc. 33.3 g/dL (32.0-36.0); Monocytes # (auto) 0.6 10 ^3/uL (0-1.3); Monocytes % (auto) 11.9 % (0.0-12.0); Neutrophils # (auto) 1.8 10 ^3/uL (1.6-8.6); Neutrophils % (auto) 36.4 % (37.0-80.0); Nucleated Red Blood Cells % 0.1 %; Red Blood Cells 3.35 10^6/uL (4.0-5.20); Red Cell Distribution Width 14.1 % (11.8-14.3); White Blood Cell 4.8 10^3/uL (4.4-10.8)
[2022-12-27 06:03] LABS: Albumin 2.7 g/dL (3.4-5.0); Calcium 8.1 mg/dL (8.5-10.1); Potassium 4.1 mmol/L (3.5-5.1)
[2022-12-27 06:08] LABS: Bilirubin, Total 0.3 mg/dL (0.2-1.0); Total Protein 5.6 g/dL (6.4-8.2)
[2022-12-27] MEDS: PANTOPRAZOLE 40 MG/10 ML VIAL INJ IV SCH (08:54)
[2022-12-27] MEDS: AMIODARONE HCL 200 MG TAB PO SCH ×2 (08:54→22:00)
[2022-12-27] MEDS: PANTOPRAZOLE 40 MG TAB PO SCH (08:54)
[2022-12-27] MEDS: METOPROLOL SUCCINATE XL 50 MG TAB PO SCH ×2 (08:54→22:00)
[2022-12-27] MEDS: SODIUM CHLORIDE 0.9% 1,000 ML IV SCH ×2 (08:55→22:13)
[2022-12-27] MEDS: ENALAPRIL MALEATE 2.5 MG TAB PO SCH (08:55)
[2022-12-27] MEDS ORDERED: OXYBUTYNIN CHL 5 MG TAB PO SCH (10:00)
[2022-12-27] MEDS ORDERED: LIDOCAINE 2%HCL (LOCAL ANESTH.) INJ 20ML MDV ONE (16:05)
[2022-12-27] MEDS ORDERED: LIDOCAINE 2%HCL (LOCAL ANESTH.) INJ 10ml MDV ONE (16:07)
[2022-12-27] MEDS ORDERED: MIDAZOLAM HCL 2MG/2ML 2ml VIAL (1mg/ml) ONE (16:12)
[2022-12-27] MEDS ORDERED: hydrALAZINE HCL 20 MG/ML VL ONE (16:29)
[2022-12-27] MEDS: HYDROcodone-ACET 5/325MG TAB PO PRN (18:08)
[2022-12-27] MEDS: QUEtiapine FUMARATE 25 MG TAB PO SCH (22:12)
[2022-12-27] MEDS: ATORVASTATIN 20 MG TAB PO SCH (22:12)
[2022-12-28 05:00] VITALS: BP 144/51
[2022-12-28 05:59] LABS: Basophils # (auto) 0 10 ^3/uL (0-0.2); Eosinophils # (auto) 0.2 10 ^3/uL (0-0.8); Eosinophils % (auto) 5.1 % (0.0-7.0); Hematocrit 33.3 % (36.0-46.0); Hemoglobin 11.4 g/dL (12.2-16.2); Lymphocytes # (auto) 1.3 10 ^3/uL (0.4-5.4); Lymphocytes % (auto) 26.7 % (10.0-50.0); Mean Corpuscular Hemoglobin 32.9 pg (28.0-32.0); Mean Corpuscular Hgb Conc. 34.1 g/dL (32.0-36.0); Mean Corpuscular Volume 96.3 fL (80.0-100.0); Monocytes # (auto) 0.5 10 ^3/uL (0-1.3); Monocytes % (auto) 10.6 % (0.0-12.0); Neutrophils # (auto) 2.7 10 ^3/uL (1.6-8.6); Neutrophils % (auto) 56.6 % (37.0-80.0); Nucleated Red Blood Cells % 0.2 %; Red Blood Cells 3.46 10^6/uL (4.0-5.20); Red Cell Distribution Width 14.2 % (11.8-14.3); White Blood Cell 4.7 10^3/uL (4.4-10.8)
[2022-12-28 06:30] LABS: Potassium 4.5 mmol/L (3.5-5.1)
[2022-12-28 06:34] LABS: BUN/Creatinine Ratio 14.6; Calcium 8.7 mg/dL (8.5-10.1)
[2022-12-28 09:01] VITALS: BP 124/44
[2022-12-28] MEDS: AMIODARONE HCL 200 MG TAB PO SCH ×2 (09:42→21:19)
[2022-12-28] MEDS: ENALAPRIL MALEATE 2.5 MG TAB PO SCH (09:42)
[2022-12-28] MEDS: PANTOPRAZOLE 40 MG TAB PO SCH (09:42)
[2022-12-28] MEDS: PANTOPRAZOLE 40 MG/10 ML VIAL INJ IV SCH (09:43)
[2022-12-28] MEDS: METOPROLOL SUCCINATE XL 50 MG TAB PO SCH ×2 (09:43→22:30)
[2022-12-28] MEDS ORDERED: BISACODYL 5 MG EC TAB PO ONE (10:30)
[2022-12-28] MEDS ORDERED: POLYETHYLENE GLYCOL 17 GM PWDR PO ONE (10:30)
[2022-12-28] MEDS: SODIUM CHLORIDE 0.9% 1,000 ML IV SCH (11:09)
[2022-12-28 12:37] VITALS: BP 131/50
[2022-12-28 16:43] VITALS: BP 117/54
[2022-12-28] MEDS: ATORVASTATIN 20 MG TAB PO SCH (21:18)
[2022-12-28] MEDS: QUEtiapine FUMARATE 25 MG TAB PO SCH (21:18)
[2022-12-28 22:00] VITALS: BP 115/52
[2022-12-29] VITALS (11 sets, daily range): BP systolic 107–162; BP diastolic 45–64
[2022-12-29] MEDS: SODIUM CHLORIDE 0.9% 1,000 ML IV SCH ×2 (01:20→14:00)
[2022-12-29 05:47] LABS: Basophils # (auto) 0.1 10 ^3/uL (0-0.2); Basophils % (auto) 0.9 % (0.0-2.0); Eosinophils # (auto) 0.4 10 ^3/uL (0-0.8); Eosinophils % (auto) 7.2 % (0.0-7.0); Hemoglobin 11.2 g/dL (12.2-16.2); Lymphocytes # (auto) 1.8 10 ^3/uL (0.4-5.4); Lymphocytes % (auto) 30.3 % (10.0-50.0); Mean Corpuscular Hemoglobin 32.7 pg (28.0-32.0); Mean Corpuscular Volume 96.3 fL (80.0-100.0); Monocytes # (auto) 0.7 10 ^3/uL (0-1.3); Monocytes % (auto) 11.5 % (0.0-12.0); Neutrophils # (auto) 2.9 10 ^3/uL (1.6-8.6); Neutrophils % (auto) 50.1 % (37.0-80.0); Red Blood Cells 3.42 10^6/uL (4.0-5.20); Red Cell Distribution Width 13.9 % (11.8-14.3); White Blood Cell 5.9 10^3/uL (4.4-10.8)
[2022-12-29 06:00] LABS: BUN/Creatinine Ratio 14.1; Calcium 8.3 mg/dL (8.5-10.1); Potassium 4.1 mmol/L (3.5-5.1)
[2022-12-29 06:01] LABS: INR 0.99 (0.9-1.15); Partial Thromboplastin Time 31.9 sec (24.6-33.4)
[2022-12-29] MEDS: PANTOPRAZOLE 40 MG/10 ML VIAL INJ IV SCH (09:40)
[2022-12-29] MEDS: AMIODARONE HCL 200 MG TAB PO SCH ×2 (09:40→21:27)
[2022-12-29] MEDS: ENALAPRIL MALEATE 2.5 MG TAB PO SCH (09:40)
[2022-12-29] MEDS: METOPROLOL SUCCINATE XL 50 MG TAB PO SCH ×2 (10:00→21:27)
[2022-12-29] MEDS: PANTOPRAZOLE 40 MG TAB PO SCH (10:00)
[2022-12-29] MEDS ORDERED: hydrALAZINE HCL 20 MG/ML VL IV ONE (15:00)
[2022-12-29] MEDS ORDERED: hydrALAZINE HCL 20 MG/ML VL IV PRN (15:00)
[2022-12-29] MEDS ORDERED: ANGIOMAX 250 MG VIAL IV ONE (16:31)
[2022-12-29] MEDS ORDERED: GLYCOPYRROLATE 0.2 MG/ML 1ML VIAL ONE (16:32)
[2022-12-29] MEDS ORDERED: fentaNYL CITRATE 100 MCG/2 ML VL ONE (16:32)
[2022-12-29] MEDS ORDERED: SODIUM CHL 0.9% 0 ML ONE (16:32)
[2022-12-29] MEDS ORDERED: MIDAZOLAM HCL 2MG/2ML 2ml VIAL (1mg/ml) ONE (16:34)
[2022-12-29] MEDS ORDERED: ATROPINE SULF 1 MG/10ml SYR ONE (16:36)
[2022-12-29] MEDS ORDERED: EPINEPHrine HCL 1 MG/10 ML SYRG ONE (16:37)
[2022-12-29] MEDS ORDERED: hydrALAZINE HCL 20 MG/ML VL ONE (16:57)
[2022-12-29] MEDS: HYDROcodone-ACET 5/325MG TAB PO PRN (18:04)
[2022-12-29] MEDS ORDERED: MORPHINE SULFATE INJ 2 MG/ml SYRG IV PRN (19:00)
[2022-12-29] MEDS: QUEtiapine FUMARATE 25 MG TAB PO SCH (21:26)
[2022-12-29] MEDS: ATORVASTATIN 20 MG TAB PO SCH (21:28)
[2022-12-30 05:00] VITALS: BP 115/41
[2022-12-30] MEDS: HYDROcodone-ACET 5/325MG TAB PO PRN ×2 (05:59→14:09)
[2022-12-30 09:01] VITALS: BP 131/52
[2022-12-30 09:44] LABS: Urine Bacteria FEW /hpf (None Seen); Urine Blood Negative /uL (Negative); Urine WBC 4 /hpf (0 - 5)
[2022-12-30] MEDS: PANTOPRAZOLE 40 MG TAB PO SCH (09:48)
[2022-12-30] MEDS: METOPROLOL SUCCINATE XL 50 MG TAB PO SCH ×2 (09:48→21:54)
[2022-12-30] MEDS: AMIODARONE HCL 200 MG TAB PO SCH ×2 (09:48→21:53)
[2022-12-30] MEDS: ENALAPRIL MALEATE 2.5 MG TAB PO SCH (09:49)
[2022-12-30] MEDS ORDERED: SODIUM CHLORIDE 0.9% 500 ML IV ONE (11:15)
[2022-12-30 12:31] VITALS: BP 129/53
[2022-12-30 16:23] VITALS: BP 119/45
[2022-12-30] MEDS: ATORVASTATIN 20 MG TAB PO SCH (21:52)
[2022-12-30] MEDS: QUEtiapine FUMARATE 25 MG TAB PO SCH (21:53)
[2022-12-30 21:59] VITALS: BP 137/43
[2022-12-31] MEDS: HYDROcodone-ACET 5/325MG TAB PO PRN (06:21)
[2022-12-31 08:53] VITALS: BP 130/45
[2022-12-31] MEDS: ENALAPRIL MALEATE 2.5 MG TAB PO SCH (09:32)
[2022-12-31] MEDS: PANTOPRAZOLE 40 MG TAB PO SCH (09:32)
[2022-12-31] MEDS: AMIODARONE HCL 200 MG TAB PO SCH (09:33)
[2022-12-31 11:23] VITALS: BP 130/45
== END 2022-12-31 12:15 | disposition home or self-care (01) | DRG 68 ==
LOC: TELE-CENTR 18:36
PROVIDERS: ADMIT Internal Medicine; ATTEND Internal Medicine
PROC: B41G1ZZ Fluoroscopy of Left Lower Extremity Arteries using Low Osmolar Contrast (ICD-10-PCS; principal; 2022-12-27)
PROC: B41F1ZZ Fluoroscopy of Right Lower Extremity Arteries using Low Osmolar Contrast (ICD-10-PCS; 2022-12-27)
PROC: B3151ZZ Fluoroscopy of Bilateral Common Carotid Arteries using Low Osmolar Contrast (ICD-10-PCS; 2022-12-29)
PROC: B3181ZZ Fluoroscopy of Bilateral Internal Carotid Arteries using Low Osmolar Contrast (ICD-10-PCS; 2022-12-29)
PROC: B3191ZZ Fluoroscopy of Right External Carotid Artery using Low Osmolar Contrast (ICD-10-PCS; 2022-12-29)
DX: I65.23 Occlusion and stenosis of bilateral carotid arteries (principal); I73.9 Peripheral vascular disease, unspecified; R32 Unspecified urinary incontinence; I48.0 Paroxysmal atrial fibrillation; I10 Essential (primary) hypertension; E78.5 Hyperlipidemia, unspecified; Z20.822 Contact with and (suspected) exposure to COVID-19; I25.10 Atherosclerotic heart disease of native coronary artery without angina pectoris; R00.1 Bradycardia, unspecified; Z86.73 Personal history of transient ischemic attack (TIA), and cerebral infarction without residual deficits; Z88.0 Allergy status to penicillin; Z95.5 Presence of coronary angioplasty implant and graft; Z90.710 Acquired absence of both cervix and uterus; Z82.3 Family history of stroke; Z82.49 Family history of ischemic heart disease and other diseases of the circulatory system
CPT/HCPCS: 36415; 71045; 71250; 80048; 80053; 81001; 85025; 85610; 85730; 87081; 99152; C1769; C9113; G0378; J2001; J2250; J2405

== ENCOUNTER → 2023-03-15 | Outpatient (CLI) | payer OTHER ==
[~2023-03-15] MED LIST changes: +AMIO200T4 PO; -ATOR20TA PO; +ATOR20TA50 PO; -METO-159 PO; +METO25TA93 PO; +OXYB5TAB24 PO; +POLY335015 PO; -QUET50TA PO; +QUET50TA27 PO
[2023-03-15 11:50] LABS: Urine Bacteria FEW /hpf (None Seen); Urine Blood Negative /uL (Negative); Urine Hyaline Cast MOD /lpf (0 - 2); Urine Mucus FEW (None Seen); Urine Specific Gravity 1.011 (1.001-1.035); Urine WBC 37 /hpf (0 - 5)
[2023-03-15 11:57] LABS: Calcium 9.1 mg/dL (8.5-10.1)
[2023-03-15 11:59] LABS: BUN/Creatinine Ratio 18.6 (10.0-20.0)
[2023-03-15 14:03] LABS: Potassium 5.6 mmol/L (3.5-5.1)
== END | disposition home or self-care (01) ==
LOC: LAB 11:15
PROVIDERS: ATTEND Internal Medicine
DX: E11.22 Type 2 diabetes mellitus with diabetic chronic kidney disease (principal); N18.30 Chronic kidney disease, stage 3 unspecified
CPT/HCPCS: 36415; 80048; 81001

== ENCOUNTER → 2023-03-20 | Outpatient (CLI) | payer OTHER ==
[~2023-03-20] MED LIST changes: +AMIO200T13 PO; -AMIO200T4 PO
[2023-03-20 12:43] LABS: Potassium 4.7 mmol/L (3.5-5.1)
[2023-03-20 12:52] LABS: BUN/Creatinine Ratio 14.3 (10.0-20.0); Calcium 8.5 mg/dL (8.5-10.1)
== END | disposition home or self-care (01) ==
LOC: LAB 11:23
PROVIDERS: ATTEND Internal Medicine
DX: I10 Essential (primary) hypertension (principal)
CPT/HCPCS: 36415; 80048

== ENCOUNTER → 2023-03-26 | Outpatient (CLI) | payer OTHER ==
[2023-03-26 11:34] LABS: Urine Bacteria NONE SEEN /hpf (None Seen); Urine Blood Negative /uL (Negative); Urine Specific Gravity 1.011 (1.001-1.035); Urine WBC 4 /hpf (0 - 5)
[2023-03-26 11:55] LABS: Sodium Urine 50 mmol/L (40-220)
[2023-03-26 11:56] LABS: Albumin 3.5 g/dL (3.4-5.0); Calcium 8.8 mg/dL (8.5-10.1); Potassium 4.5 mmol/L (3.5-5.1)
[2023-03-26 11:59] LABS: BUN/Creatinine Ratio 10.5 (10.0-20.0); Bilirubin, Total 0.7 mg/dL (0.2-1.0); Total Protein 6.8 g/dL (6.4-8.2)
[2023-03-26 12:03] LABS: Creatinine, Urine 78 mg/dL (30.0-125.0)
== END | disposition home or self-care (01) ==
LOC: LAB 11:08
PROVIDERS: ATTEND Internal Medicine
DX: I10 Essential (primary) hypertension (principal)
CPT/HCPCS: 36415; 80053; 81001; 82570; 83935; 84300

== ENCOUNTER → 2023-12-07 | Outpatient (CLI) | payer OTHER ==
[2023-12-07 10:10] LABS: Basophils # (auto) 0.1 10 ^3/uL (0-0.2); Basophils % (auto) 0.9 % (0.0-2.0); Eosinophils # (auto) 0.2 10 ^3/uL (0-0.8); Eosinophils % (auto) 2.4 % (0.0-7.0); Hematocrit 37.9 % (36.0-46.0); Hemoglobin 12.5 g/dL (12.2-16.2); Lymphocytes # (auto) 1.1 10 ^3/uL (0.4-5.4); Mean Corpuscular Hemoglobin 31.6 pg (28.0-32.0); Mean Corpuscular Hgb Conc. 32.9 g/dL (32.0-36.0); Monocytes # (auto) 0.8 10 ^3/uL (0-1.3); Monocytes % (auto) 10.2 % (0.0-12.0); Neutrophils # (auto) 5.4 10 ^3/uL (1.6-8.6); Neutrophils % (auto) 71.5 % (37.0-80.0); Red Blood Cells 3.94 10^6/uL (4.0-5.20); Red Cell Distribution Width 13.1 % (11.8-14.3); White Blood Cell 7.5 10^3/uL (4.4-10.8)
[2023-12-07 10:57] LABS: Alanine Aminotransferase 22 U/L (7-40); Albumin 4.4 g/dL (3.2-4.8); Alkaline Phosphatase 94 U/L (46-116); Anion Gap 8 (5-15); Aspartate Aminotransferase 22 U/L (13-40); BUN/Creatinine Ratio 16.8 (10.0-20.0); Bilirubin, Total 0.8 mg/dL (0.2-1.0); Blood Urea Nitrogen 25 mg/dL (9-23); Calcium 9.4 mg/dL (8.5-10.1); Carbon Dioxide 28 mmol/L (20-30); Chloride 107 mmol/L (98-107); Cholesterol 230 mg/dL (< 200); Glucose 97 mg/dL (74-106); HDL Cholesterol 75 mg/dL (40-59); LDL Cholesterol 136 mg/dL (< 100); Potassium 4.1 mmol/L (3.5-5.1); Sodium 143 mmol/L (136-145); Total Protein 6.6 g/dL (5.7-8.2); Triglycerides 105 mg/dL (< 150)
[2023-12-07 12:46] LABS: Urine Bacteria FEW /hpf (None Seen); Urine Blood Negative /uL (Negative); Urine Clarity HAZY (Clear); Urine Color Yellow (Yellow); Urine Hyaline Cast FEW /lpf (0 - 2); Urine Protein, UAD TRACE (Negative); Urine Specific Gravity 1.019 (1.001-1.035); Urine Urobilinogen Normal (Negative); Urine WBC 22 /hpf (0 - 5); Urine pH 6.5 (5.0-8.0)
== END | disposition home or self-care (01) ==
LOC: LAB 09:34
PROVIDERS: ATTEND Internal Medicine
DX: E11.22 Type 2 diabetes mellitus with diabetic chronic kidney disease (principal); N18.4 Chronic kidney disease, stage 4 (severe); E11.51 Type 2 diabetes mellitus with diabetic peripheral angiopathy without gangrene; E78.5 Hyperlipidemia, unspecified
CPT/HCPCS: 36415; 80053; 80061; 81001; 82607; 83036; 84443; 85025

== ENCOUNTER → 2024-06-16 | Outpatient (CLI) | payer OTHER ==
[~2024-06-16] MED LIST changes: +ENAL1TAB43 PO; -ENAL2.5T11 PO
[2024-06-16 12:17] LABS: Basophils # (auto) 0.1 10 ^3/uL (0-0.2); Basophils % (auto) 0.9 % (0.0-2.0); Eosinophils # (auto) 0.2 10 ^3/uL (0-0.8); Eosinophils % (auto) 2.8 % (0.0-7.0); Hematocrit 41.4 % (36.0-46.0); Lymphocytes # (auto) 1.7 10 ^3/uL (0.4-5.4); Lymphocytes % (auto) 19.4 % (10.0-50.0); Mean Corpuscular Hemoglobin 31.7 pg (28.0-32.0); Mean Corpuscular Hgb Conc. 33.8 g/dL (32.0-36.0); Mean Corpuscular Volume 93.7 fL (80.0-100.0); Monocytes # (auto) 0.9 10 ^3/uL (0-1.3); Monocytes % (auto) 10.2 % (0.0-12.0); Neutrophils # (auto) 5.9 10 ^3/uL (1.6-8.6); Neutrophils % (auto) 66.7 % (37.0-80.0); Platelet Count (auto) 333 10^3/uL (140-450); Red Blood Cells 4.41 10^6/uL (4.0-5.20); Red Cell Distribution Width 13.9 % (11.8-14.3); White Blood Cell 8.9 10^3/uL (4.4-10.8)
[2024-06-16 12:23] LABS: Urine Bacteria FEW /hpf (None Seen); Urine Blood Negative /uL (Negative); Urine Budding Yeast OCCASIONAL /hpf (None Seen); Urine Clarity Clear (Clear); Urine Color Light-Yellow (Yellow); Urine Hyaline Cast MOD /lpf (0 - 2); Urine Hyphae Yeast PRESENT /hpf; Urine Mucus FEW (None Seen); Urine Protein, UAD Negative (Negative); Urine Urobilinogen Normal (Negative); Urine WBC 22 /hpf (0 - 5)
[2024-06-16 12:35] LABS: Creatinine, Urine 70.62 mg/dL (30.0-125.0)
[2024-06-16 12:39] LABS: Alanine Aminotransferase 14 U/L (7-40); Albumin 4.4 g/dL (3.2-4.8); Alkaline Phosphatase 113 U/L (46-116); Anion Gap 6 (5-15); Aspartate Aminotransferase 14 U/L (13-40); BUN/Creatinine Ratio 10.6 (10.0-20.0); Bilirubin, Total 0.8 mg/dL (0.2-1.0); Blood Urea Nitrogen 17 mg/dL (9-23); Calcium 10.1 mg/dL (8.7-10.4); Carbon Dioxide 28 mmol/L (20-30); Chloride 107 mmol/L (98-107); Glucose 101 mg/dL (74-106); Potassium 4.1 mmol/L (3.5-5.1); Sodium 141 mmol/L (136-145); Total Protein 7.4 g/dL (5.7-8.2)
== END | disposition home or self-care (01) ==
LOC: LAB 11:51
PROVIDERS: ATTEND Internal Medicine
DX: N18.4 Chronic kidney disease, stage 4 (severe) (principal); E55.9 Vitamin D deficiency, unspecified; R73.03 Prediabetes
CPT/HCPCS: 36415; 80053; 81001; 82043; 82306; 82570; 83880; 85025

== ENCOUNTER → 2024-12-05 | Day surgery (SDC) | payer OTHER ==
[2024-12-01 12:45] LABS: Basophils # (auto) 0.1 10 ^3/uL (0-0.2); Eosinophils # (auto) 0.2 10 ^3/uL (0-0.8); Eosinophils % (auto) 2.3 % (0.0-7.0); Hemoglobin 13.6 g/dL (12.2-16.2); Lymphocytes # (auto) 1.5 10 ^3/uL (0.4-5.4); Lymphocytes % (auto) 16.3 % (10.0-50.0); Mean Corpuscular Hemoglobin 30.4 pg (28.0-32.0); Mean Corpuscular Hgb Conc. 32.3 g/dL (32.0-36.0); Monocytes # (auto) 0.9 10 ^3/uL (0-1.3); Monocytes % (auto) 9.9 % (0.0-12.0); Neutrophils # (auto) 6.3 10 ^3/uL (1.6-8.6); Neutrophils % (auto) 70.5 % (37.0-80.0); Platelet Count (auto) 370 10^3/uL (140-450); Red Blood Cells 4.47 10^6/uL (4.0-5.20); Red Cell Distribution Width 13.7 % (11.8-14.3); White Blood Cell 8.9 10^3/uL (4.4-10.8)
[2024-12-01 13:02] LABS: INR 1.01 (0.9-1.15); Partial Thromboplastin Time 35.2 SEC (24.5-34.5); Prothrombin Time 10.7 sec (9.3-11.8)
[2024-12-01 14:13] LABS: Alanine Aminotransferase 18 U/L (7-40); Albumin 4.5 g/dL (3.2-4.8); Anion Gap 9 (5-15); Aspartate Aminotransferase 15 U/L (13-40); BUN/Creatinine Ratio 13.7 (10.0-20.0); Bilirubin, Total 0.9 mg/dL (0.2-1.0); Blood Urea Nitrogen 23 mg/dL (9-23); Carbon Dioxide 29 mmol/L (20-31); Chloride 103 mmol/L (98-107); Potassium 4.2 mmol/L (3.5-5.1); Sodium 141 mmol/L (136-145); Total Protein 7.1 g/dL (5.7-8.2)
[2024-12-01 14:15] LABS: Alkaline Phosphatase 149 U/L (46-116); Glucose 113 mg/dL (74-106)
[~2024-12-05] VITALS: Ht 172.7 cm; Wt 86.2 kg
[~2024-12-05] MED LIST changes: +ACE650RS PO; +AMLO1TAB22 PO; +BIOT50006 PO; +CALC625T13 PO; +FURO20TA3 PO; +IBUP200C14 PO; +POTA-36 PO; +SODIUM CHLORIDE LOCK 10 ML ONE
[2024-12-05 13:38] VITALS: PULSE 95; RESP 10; O2SAT 100
[2024-12-05] MEDS: fentaNYL CITRATE 100 MCG/2 ML VL ONE (13:45)
[2024-12-05] MEDS: diphenhdrAMINE HCL 50 MG/1 ML VL ONE (13:45)
[2024-12-05] MEDS: MIDAZOLAM HCL 5 MG/ML-1ML VIAL ONE (13:45)
[2024-12-05 14:09] VITALS: PULSE 109; RESP 18; O2SAT 100
--- NOTE | 2024-12-05 14:14 | DVHOP2 ---
Operative Report DATE OF OPERATION: 12/05/24 PROCEDURE: Colonoscopy with snare polypectomy. PREOPERATIVE INDICATION: The patient is a 79 -year-old female undergoing colonoscopy for surveillance with personal history of cecal polyp POSTOPERATIVE DIAGNOSES: 1. Patient had a residual 1.5 cm benign-appearing cecal polypoid growth in the base of the cecum. This was removed completely via hot snare polypectomy 2. Patient had mild sigmoid diverticular disease 3. There were 3-4 diminutive hyperplastic type rectal polyps, one was removed via snare polypectomy and the other by cold biopsy forceps PROCEDURE PERFORMED BY: Jseica Mcfarland M.D. SCOPE: Olympus videocolonoscope. ASA CLASS:3 PREOPERATIVE MEDICATIONS: Versed 2 mg, Fentanyl 50 mcg, Benadryl 50 mg PROCEDURE IN DETAIL: After obtaining an informed consent, the patient was placed on left lateral decubitus position. She was then sedated with the above medications. A rectal examination was performed that was normal. The colonoscope was then passed through the anus into the rectosigmoid and through the descending, transverse, and ascending colon up to the cecum with visualization of the appendiceal orifice, base of the cecum and the ileocecal valve. The colonoscope was then withdrawn. In the base of the cecum there was a 1.5 cm residual polyp. This was removed completely via hot snare polypectomy and the specimens were retrieved Patient had mild sigmoid diverticular disease and mild sigmoid muscular hypertrophy On retroflexion and straight on view patient had trace to 1+ internal hemor rhoids There were 3-4 diminutive benign-appearing rectal polyps. One was removed via hot snare polypectomy The other three were removed by cold biopsy forceps and the specimens were retrieved The patient tolerated the procedure well without difficulty. WITHDRAWAL TIME: 9 minute QUALITY OF THE PREP: Yale Bowel Prep score: 9. COMPLICATIONS : None SPECIMENS: Cecal polyp Rectal polyps DISPOSITION: Stable D/C to home PLAN: 1. Repeat colonoscopy base on biopsy result likely in 3-5 years 2. Resume GI soft diet advance as tolerated 3. Increase fluid and fiber intake 4. Outpatient follow up with me in 4-6 weeks to review results and discuss further management JESICA MCFARLAND MD Dec 05, 2024 14:14
--- NOTE | 2024-12-05 14:37 | DVHOP2 ---
Operative Report DATE OF OPERATION: 12/05/24 PROCEDURE: Colonoscopy with cold biopsy PREOPERATIVE INDICATION: The patient is a 79 -year-old female undergoing colonoscopy for evaluation of rectal bleeding and abdominal pain POSTOPERATIVE DIAGNOSES: 1. Patient had 1+ internal external hemorrhoids 2. There were two diminutive 1 mm benign-appearing hyperplastic type polyps that were seen and removed by cold biopsy forceps 3. Mild tortuosity and redundancy of the colon otherwise essentially completely normal colonoscopy examination up to the cecum PROCEDURE PERFORMED BY: Jesica Mcfarland M.D. SCOPE: Olympus videocolonoscope. ASA CLASS: 2 PREOPERATIVE MEDICATIONS: Dr. Gil Solorio PROCEDURE IN DETAIL: After obtaining an informed consent, the patient was placed on left lateral decubitus position. She was then sedated with the above medications. A rectal examination was performed that was normal. The colonoscope was then passed through the anus into the rectosigmoid and through the descending, transverse, and ascending colon up to the cecum with visualization of the appendiceal orifice, base of the cecum and the ileocecal valve. The colonoscope was then withdrawn. The distal 5 cm of the terminal ileum were normal No masses or colitis was noted. There was no clear-cut diverticular disease. She had mild tortuosity and redundancy of the colon especially involving the splenic flexure and the sigmoid colon In the distal descending proximal sigmoid there were two diminutive 1 mm benign- appearing hyperplastic type excrescences that were seen and removed by cold biopsy forceps On retroflexion and straight on view she had 1+ internal hemorrhoids. The patient tolerated the procedure well without difficulty. WITHDRAWAL TIME: 6 minutes QUALITY OF THE PREP: Rice Bowel Prep score: 8. COMPLICATIONS : None SPECIMENS: Sigmoid colon polyp DISPOSITION: Stable D/C to home PLAN: 1. Repeat colonoscopy base on biopsy result likely in 10 years 2.,Resume GI soft diet advance as tolerated 3. Local anorectal hemorrhoidal care 4. Outpatient follow up with me in 4-6 weeks to review results and discuss further management JESICA MCFARLAND MD Dec 05, 2024 14:37
[2024-12-05 15:19] VITALS: BP 118/69; PULSE 90; RESP 26; O2SAT 93
== END | disposition home or self-care (01) ==
LOC: GI 10:03
PROVIDERS: ATTEND Internal Medicine Gastroenterology
DX: K62.5 Hemorrhage of anus and rectum (principal); K62.1 Rectal polyp; D12.0 Benign neoplasm of cecum; K64.4 Residual hemorrhoidal skin tags; K64.0 First degree hemorrhoids; I25.10 Atherosclerotic heart disease of native coronary artery without angina pectoris; K57.30 Diverticulosis of large intestine without perforation or abscess without bleeding; Z90.710 Acquired absence of both cervix and uterus; Z90.49 Acquired absence of other specified parts of digestive tract; Z88.0 Allergy status to penicillin; Z88.8 Allergy status to other drugs, medicaments and biological substances; Z98.41 Cataract extraction status, right eye; Z86.0100 Personal history of colon polyps, unspecified; Z98.42 Cataract extraction status, left eye; Z95.5 Presence of coronary angioplasty implant and graft
CPT/HCPCS: 36415; 45380; 45385; 80053; 85025; 85610; 85730; 88305; J1200; J2250; J3010; J7030; 99152

== ENCOUNTER → 2025-03-05 | Outpatient (CLI) | payer OTHER ==
[~2025-03-05] MED LIST changes: -SODIUM CHLORIDE LOCK 10 ML ONE
[2025-03-05 10:55] LABS: Basophils # (auto) 0 10 ^3/uL (0-0.2); Basophils % (auto) 0.2 % (0.0-2.0); Eosinophils # (auto) 0.1 10 ^3/uL (0-0.8); Eosinophils % (auto) 1.3 % (0.0-7.0); Hematocrit 42.4 % (36.0-46.0); Lymphocytes # (auto) 1.1 10 ^3/uL (0.4-5.4); Lymphocytes % (auto) 11.4 % (10.0-50.0); Mean Corpuscular Hemoglobin 31.3 pg (28.0-32.0); Mean Corpuscular Hgb Conc. 33.1 g/dL (32.0-36.0); Mean Corpuscular Volume 94.6 fL (80.0-100.0); Monocytes # (auto) 0.9 10 ^3/uL (0-1.3); Monocytes % (auto) 9.1 % (0.0-12.0); Neutrophils # (auto) 7.4 10 ^3/uL (1.6-8.6); Platelet Count (auto) 281 10^3/uL (140-450); Red Blood Cells 4.49 10^6/uL (4.0-5.20); White Blood Cell 9.5 10^3/uL (4.4-10.8)
[2025-03-05 11:13] LABS: Alanine Aminotransferase 33 U/L (7-40); Albumin 4.6 g/dL (3.2-4.8); Anion Gap 11 (5-15); Aspartate Aminotransferase 23 U/L (13-40); BUN/Creatinine Ratio 20.3 (10.0-20.0); Calcium 10.2 mg/dL (8.7-10.4); Carbon Dioxide 28 mmol/L (20-31); Chloride 104 mmol/L (98-107); Glucose 85 mg/dL (74-106); Potassium 4.1 mmol/L (3.5-5.1); Sodium 143 mmol/L (136-145); Total Protein 7.4 g/dL (5.7-8.2)
[2025-03-05 11:14] LABS: Alkaline Phosphatase 158 U/L (46-116); Bilirubin, Total 0.9 mg/dL (0.2-1.0); Blood Urea Nitrogen 31 mg/dL (9-23)
== END | disposition home or self-care (01) ==
LOC: LAB 10:18
PROVIDERS: ATTEND Internal Medicine
DX: N18.32 Chronic kidney disease, stage 3b (principal); E55.9 Vitamin D deficiency, unspecified; Z00.00 Encounter for general adult medical examination without abnormal findings
CPT/HCPCS: 36415; 80053; 85025

== ENCOUNTER 2025-03-12 12:47 | Inpatient (IN) | payer OTHER ==
[~2025-03-12] VITALS: Ht 30.5 cm; Wt 86.0 kg
[2025-03-12 18:29] VITALS: BP 131/64; PULSE 65; RESP 18; TEMP 98.7; O2SAT 97
[2025-03-12 20:00] VITALS: PULSE 68; O2SAT 97
[2025-03-12] MEDS ORDERED: DOCUSATE SOD 100 MG CAP PO PRN (20:30)
[2025-03-12] MEDS ORDERED: ONDANSETRON HCL 4 MG/2 ML VIAL IV PRN (20:30)
--- NOTE | 2025-03-12 20:32 | DVHHP2 ---
Admitting Diagnosis: Fall History of Present Illness Patient is 79 years old woman with a history of AFib on Plavix, hypertension, dementia, CKD transferred to [facility] further admission. History gathered from the patient and the EMR. Patient went to [facility] due to mechanical fall patient was experiencing increasing number of fall recently. Patient's neighbor went to check on the patient and found her lying on the floor it is unknown if patient experiences loss of consciousness. Per EMS patient had hematoma of the back of the head. In the [facility] patient received heparin drip and started on Eliquis this morning. No acute bleeding in the brain or any areas. Patient is transferred back to [facility] to continue treatment for pulmonary embolism. Patient denied chest pain, shortness breath, dizziness, nausea vomiting constipation or diarrhea. Review of system negative except HPI Past medical history limited due to dementia Past surgical history limited due to dementia Social history limited due to dementia Family history is limited due to dementia Patient Family History: FH: stroke G8 FATHER FHx: hepatic cirrhosis Family history: Hypertension G8 MOTHER G8 FATHER Allergies: Coded Allergies: Grapefruit Extract (Verified Allergy, Mild, 11/29/20) Penicillins (Verified Allergy, Unknown, 12/17/22) Interview date: 12/15/2022 Patient reported rash, itching arm with scratching when taking PCNs ( PO route) about 5 years ago with home remedies, did not need physician or hospital help at that time. Patient was not sure whether re-challenge with PCNs or CEPHs Codeine (Unverified Adverse Reaction, Mild, Constipation , N/V, 12/01/24) Home Meds Reported Medications Acetaminophen (Tylenol) 650 Mg Rc, 650 MG PO PRN, SUPP.RECT 12/01/24 Potassium Chloride (POTASSIUM CHLORIDE CR) 10 Meq Tb, 8 MEQ PO, TAB 12/01/24 Furosemide (Furosemide) 20 Mg Tab, 20 MG PO, TAB 12/01/24 Calcium Polycarbophil (Fiber Tabs) 625 Mg Tab, 1 TAB PO DAILY, TAB 12/01/24 Biotin (SUPER BIOTIN) 5,000 Mcg Cap, 5000 MCG PO, CAP 12/01/24 Ibuprofen (Advil) 200 Mg Cap, 200 MG PO, CAP 12/01/24 Amlodipine Besylate (Amlodipine Besylate) 5 Mg Tab, 10 MG PO DAILY for 30 Days, MG 12/01/24 Polyethylene Glycol 3350 (Miralax) 17 Gm Pow, 17 GM PO, POW 12/27/22 Amiodarone HCl (Amiodarone HCl) 200 Mg Tab, 1 TAB PO BID 12/26/22 Quetiapine Fumerate (QUETIAPINE FUMARATE) 50 Mg Tab, 1 TAB PO HS 12/26/22 Atorvastatin Calcium (ATORVASTATIN CALCIUM) 20 Mg Tab, 1 TAB PO HS 12/26/22 Metoprolol Succinate (Metoprolol Succinate Er) 25 Mg Tab, 1 TAB PO BID 12/26/22 Oxybutynin Chloride (Ditropan Xl) 5 Mg Tab, 5 MG PO DAILY 12/26/22 Pantoprazole Sodium Sesquihydr (Protonix) 40 Mg Tab, 40 MG PO DAILY, #30 TAB 11/29/20 Enalapril Maleate (VASOTEC TABLET) 2.5 Mg Tb, 5 MG PO BID, #30 TAB 5 Refills 10/21/18 Clopidogrel Bisulfate (Plavix) 75 Mg Tab, 1 TAB PO DAILY, #90 TAB 1 Refill 10/21/18 Vital Signs Vital Signs Date Time Temp Pulse Resp B/P (MAP) Pulse Ox O2 Delivery O2 Flow Rate FiO2 03/12/25 18:29 18 Room Air* 0 21 Physical Exam Generally 79 years old woman, well nourished, well developed. No apparent distress HEENT-occipital swollen, normocephalic, MARTÍN, no obvious acute abnormalities neck. Supple neck Lungs clear to auscultate bilaterally. No crackles wheezing or rales Heart-irregularly irregular. Abdomen soft nontender nondistended Musculoskeletal-no edema cyanosis Neuro-awake and alert x4, hard of hearing, strength and sensory intact. Results Labs Test 03/12/25 20:37 Range/Units Primary Diagnosis Acute PE Plan Patient was diagnosis bilateral pulmonary embolism in [facility] to [facility]. Patient received heparin drip transitioned to Eliquis this morning. We will continue Eliquis 5 mg b.i.d. Resume home meds Monitor for bleeding Repeat CBC Check INR Full code Eliquis for DVT prophylaxis No GI prophylaxis needed Regular diet Plan discussed with: Patient Problems List: (1) Bilateral pulmonary embolism Date of Service: March 12, 2025 Billing Provider: GRACIE CHRISTIAN MD Common Visit Codes: [id number] INP/OBS CARE (MOD) GRACIE CHRISTIAN MD March 12, 2025 20:32
[2025-03-12 20:55] LABS: Basophils # (auto) 0.1 10 ^3/uL (0-0.2); Basophils % (auto) 1.2 % (0.0-2.0); Eosinophils # (auto) 0.3 10 ^3/uL (0-0.8); Eosinophils % (auto) 5.3 % (0.0-7.0); Hematocrit 34.6 % (36.0-46.0); Hemoglobin 11.5 g/dL (12.2-16.2); Mean Corpuscular Hemoglobin 31.6 pg (28.0-32.0); Mean Corpuscular Hgb Conc. 33.1 g/dL (32.0-36.0); Mean Corpuscular Volume 95.4 fL (80.0-100.0); Monocytes # (auto) 0.7 10 ^3/uL (0-1.3); Monocytes % (auto) 10.8 % (0.0-12.0); Neutrophils # (auto) 4.3 10 ^3/uL (1.6-8.6); Neutrophils % (auto) 66.7 % (37.0-80.0); Platelet Count (auto) 251 10^3/uL (140-450); Red Blood Cells 3.63 10^6/uL (4.0-5.20); Red Cell Distribution Width 15.4 % (11.8-14.3); White Blood Cell 6.4 10^3/uL (4.4-10.8)
[2025-03-12 20:59] LABS: Potassium 4.3 mmol/L (3.5-5.1); Sodium 144 mmol/L (136-145)
[2025-03-12 21:00] VITALS: BP 138/66; PULSE 82; RESP 19; TEMP 98.3; O2SAT 96
[2025-03-12 21:00] LABS: Anion Gap 9 (5-15); Calcium 9.1 mg/dL (8.7-10.4); Carbon Dioxide 26 mmol/L (20-31)
[2025-03-12 21:05] LABS: BUN/Creatinine Ratio 16.2 (10.0-20.0); Blood Urea Nitrogen 23 mg/dL (9-23)
[2025-03-12 21:37] LABS: Chloride 109 mmol/L (98-107); Glucose 122 mg/dL (74-106)
[2025-03-12 21:40] LABS: INR 1.02 (0.9-1.15); Prothrombin Time 10.8 sec (9.3-11.8)
[2025-03-12] MEDS ORDERED: APIX5TAB PO (22:24)
[2025-03-12] MEDS ORDERED: MET50T PO (22:24)
[2025-03-12] MEDS ORDERED: QUET50TA PO (22:24)
[2025-03-12] MEDS ORDERED: AMLO1TAB23 PO (22:24)
[2025-03-12] MEDS ORDERED: TRAZ-228 PO (22:26)
[2025-03-12] MEDS: ATORVASTATIN 20 MG TAB PO SCH (22:30)
[2025-03-12] MEDS: APIXABAN 5 MG TAB PO SCH (22:31)
[2025-03-12] MEDS: AMIODARONE HCL 200 MG TAB PO SCH (22:32)
[2025-03-12] MEDS: QUEtiapine FUMARATE 25 MG TAB PO SCH (22:32)
[2025-03-12] MEDS: SODIUM CHLOR 0.9% PF (SALINE LOCK) 10ML VIAL/SYR IV SCH (22:33)
[2025-03-12] MEDS: METOPROLOL SUCCINATE XL 50 MG TAB PO SCH (22:37)
[2025-03-12] MEDS ORDERED: HYDR-4902 PO (23:34)
[2025-03-12] MEDS ORDERED: MORP15TA INJ (23:34)
[2025-03-12] MEDS ORDERED: DIPH50TA9 PO (23:34)
[2025-03-12] MEDS ORDERED: HYD20I INJ (23:34)
[2025-03-12] MEDS ORDERED: DIPH50TA9 INJ (23:42)
[2025-03-13] VITALS (9 sets, daily range): BP systolic 92–140; BP diastolic 58–76; PULSE 61–90; RESP 16–23; TEMP 97.8–98.4; O2SAT 95–98
[2025-03-13] MEDS: PANTOPRAZOLE 40 MG TAB PO SCH (06:10)
[2025-03-13] MEDS ORDERED: OXYBUTYNIN CHL 5 MG TAB PO SCH (10:00)
[2025-03-13] MEDS: CALCIUM POLYCARBOPHIL 625 MG PO SCH (10:00)
[2025-03-13] MEDS: CLOPIDOGREL BISULFATE 75 MG TAB PO SCH (10:08)
[2025-03-13] MEDS: POLYETHYLENE GLYCOL 17 GM PWDR PO SCH (10:08)
[2025-03-13] MEDS: FUROSEMIDE 20 MG TAB PO SCH (10:12)
[2025-03-13] MEDS: amLODIPine BESYLATE 5 MG TAB PO SCH (10:13)
[2025-03-13] MEDS ORDERED: POTA-36 PO (14:36)
[2025-03-13] MEDS ORDERED: FURO20TA3 PO (14:36)
[2025-03-13] MEDS ORDERED: CLOP75TA70 PO (14:36)
--- NOTE | 2025-03-13 18:13 | DVHPN2 ---
Reviewed: Care Plan, H&P, Labs, Medications, Previous Orders, Radiology Changes from previous H/P or p: No Changes General: Per HPI Objective Vitals Vital Signs Date Time Temp Pulse Resp B/P (MAP) Pulse Ox O2 Delivery O2 Flow Rate FiO2 03/13/25 17:28 98.3 77 20 98/65 (76) 98 98.3 03/13/25 08:00 Room Air* 0 21 Intake/Output Intake and Output 03/13/25 07:00 Intake Total 400 ml Balance 400 ml Intake Oral 400 ml # Voids 2 # Bowel Movements 3 General Appearance: Alert, Oriented X3, Cooperative, No acute distress HEENT: Atraumatic Cardiovascular: Regular rate, Normal S1, Normal S2 Neuro: Normal speech Medications Current Medications Medications Dose Ordered Sig/Ismael Route Start Time Stop Time Status Last Admin Dose Admin Sodium Chloride 10 ml Q8HR IV 03/12/25 22:00 03/13/25 14:00 10 ML Docusate Sodium 100 mg BIDPRN PRN PO 03/12/25 20:30 Acetaminophen 650 mg Q6HP PRN PO 03/12/25 20:30 Acetaminophen/ Hydrocodone Bitart 1 tab Q4HP PRN PO 03/12/25 20:30 Ondansetron HCl 4 mg Q4HP PRN IV 03/12/25 20:30 Amiodarone HCl 200 mg BID PO 03/12/25 22:00 03/13/25 10:13 200 MG Amlodipine Besylate 10 mg DAILY PO 03/13/25 10:00 03/13/25 10:13 10 MG Atorvastatin Calcium 20 mg HS PO 03/12/25 22:00 03/12/25 22:30 20 MG Clopidogrel Bisulfate 75 mg DAILY PO 03/13/25 10:00 03/13/25 10:08 75 MG Pantoprazole Sodium 40 mg DAILY@0700 PO 03/13/25 07:00 03/13/25 06:10 40 MG Polyethylene Glycol 17 gm DAILY PO 03/13/25 10:00 03/13/25 10:08 17 GM Patient Own Medication 1 tab DAILY PO 03/13/25 10:00 Metoprolol Succinate 25 mg BID PO 03/12/25 22:00 03/13/25 10:13 25 MG Oxybutynin Chloride 5 mg DAILY PO 03/13/25 10:00 Hold Quetiapine Fumarate 50 mg HS PO 03/12/25 22:00 03/12/25 22:32 50 MG Furosemide 20 mg DAILY PO 03/13/25 10:00 03/13/25 10:12 20 MG Apixaban 5 mg BID PO 03/12/25 22:00 03/13/25 10:13 5 MG Acetaminophen/ Hydrocodone Bitart 0.5 tab Q4HPRN PRN PO 03/13/25 14:30 Laboratory Results Laboratory Tests 03/12/25 20:37 Chemistry Test 03/12/25 20:37 Calcium Level 9.1 mg/dL (8.7-10.4) Coagulation Test 03/12/25 20:37 Prothrombin Time 10.8 sec (9.3-11.8) Prothrombin Time INR 1.02 (0.9-1.15) Labs and/or images reviewed: Labs reviewed by me, Image(s) reviewed by me Assessment/Plan Assessment/Plan Patient is 79 years old woman with a history of AFib on Plavix, hypertension, dementia, CKD transferred to [facility] further admission. History gathered from the patient and the EMR. Patient went to due to mechanical fall patient was experiencing increasing number of fall recently. Patient's neighbor went to check on the patient and found her lying on the floor it is unknown if patient experiences loss of consciousness. Per EMS patient had hematoma of the back of the head. In the [facility] patient received heparin drip and started on Eliquis this morning. No acute bleeding in the brain or any areas. Patient is transferred back to [facility] to continue treatment for pulmonary embolism. Patient denied chest pain, shortness breath, dizziness, nausea vomiting constipation or diarrhea. Review of system negative except HPI Past medical history limited due to dementia Past surgical history limited due to dementia Social history limited due to dementia Family history is limited due to dementia Acute PE weakness acute hypoxic resp failure failure to thrive dementia delirium on seraquel per POA, pt is DNR pt was able to walk 1 week ago would like to have PT/OT evaluate ok for SNF if appropriate Plan discussed with: Patient My Orders Orders - YONIS RM DO Procedure Category Date Status Time Code Status CODE 03/13/25 Transmitted 14:22 Hydrocodone-Acet PHA 03/13/25 In Process 5/325mg Tab ([place] 14:30 Pt Request For Service PT 03/13/25 Logged 14:38 Date of Service: March 13, 2025 Billing Provider: YONIS RM DO Common Visit Codes: [id number] INP/OBS CARE(HIGH) YONIS RM DO March 13, 2025 18:13
[2025-03-14] VITALS (8 sets, daily range): BP systolic 120–145; BP diastolic 65–88; PULSE 65–88; RESP 17–20; TEMP 97.5–98.3; O2SAT 95–98
--- NOTE | 2025-03-14 18:52 | DVHPN2 ---
Subjective Feels better Reviewed: Care Plan, H&P, Labs, Medications, Previous Orders, Radiology Changes from previous H/P or p: No Changes General: Per HPI Objective Vitals Vital Signs Date Time Temp Pulse Resp B/P (MAP) Pulse Ox O2 Delivery O2 Flow Rate FiO2 03/14/25 17:00 97.5 65 18 129/66 (87) 97 97.5 03/14/25 08:00 Room Air* 2 N/A Nasal Cannula* Intake/Output Intake and Output 03/14/25 07:00 Intake Total 940 ml Output Total 400 ml Balance 540 ml Intake Oral 940 ml Output Urine Total 400 ml # Voids 1 # Bowel Movements 2 General Appearance: Alert, Oriented X3, Cooperative, No acute distress HEENT: Atraumatic Cardiovascular: Regular rate Medications Current Medications Medications Dose Ordered Sig/Ismael Route Start Time Stop Time Status Last Admin Dose Admin Sodium Chloride 10 ml Q8HR IV 03/12/25 22:00 03/14/25 14:00 10 ML Docusate Sodium 100 mg BIDPRN PRN PO 03/12/25 20:30 Acetaminophen 650 mg Q6HP PRN PO 03/12/25 20:30 Acetaminophen/ Hydrocodone Bitart 1 tab Q4HP PRN PO 03/12/25 20:30 Ondansetron HCl 4 mg Q4HP PRN IV 03/12/25 20:30 Amiodarone HCl 200 mg BID PO 03/12/25 22:00 03/14/25 08:33 200 MG Amlodipine Besylate 10 mg DAILY PO 03/13/25 10:00 03/14/25 08:34 10 MG Atorvastatin Calcium 20 mg HS PO 03/12/25 22:00 03/13/25 21:58 20 MG Clopidogrel Bisulfate 75 mg DAILY PO 03/13/25 10:00 03/14/25 08:33 75 MG Pantoprazole Sodium 40 mg DAILY@0700 PO 03/13/25 07:00 03/14/25 06:00 40 MG Polyethylene Glycol 17 gm DAILY PO 03/13/25 10:00 03/14/25 08:33 17 GM Patient Own Medication 1 tab DAILY PO 03/13/25 10:00 Metoprolol Succinate 25 mg BID PO 03/12/25 22:00 03/14/25 08:34 25 MG Oxybutynin Chloride 5 mg DAILY PO 03/13/25 10:00 Hold Quetiapine Fumarate 50 mg HS PO 03/12/25 22:00 03/13/25 21:58 50 MG Furosemide 20 mg DAILY PO 03/13/25 10:00 03/14/25 08:35 20 MG Apixaban 5 mg BID PO 03/12/25 22:00 03/14/25 08:33 5 MG Acetaminophen/ Hydrocodone Bitart 0.5 tab Q4HPRN PRN PO 03/13/25 14:30 Laboratory Results Laboratory Tests 03/12/25 20:37 Assessment/Plan Assessment/Plan Bilateral pulmonary embolism AFib Hypertension Chronic kidney disease stage IIIB Anemia Chronic back pain Obesity Plan: Continue current plan of care. We will check urine. Patient lives alone and she may need placement. Further plan per orders Plan discussed with: Patient Date of Service: March 14, 2025 Billing Provider: JA LIN MD Common Visit Codes: [id number] INP/OBS CARE(HIGH) JA LIN MD March 14, 2025 18:52
--- NOTE | 2025-03-14 21:39 | DVH ---
Bilateral lower extremity venous duplex Clinical History: ble Comparison: None Technique: Duplex Doppler evaluation of the deep venous systems of both lower extremities from the common femora l veins to the popliteal veins including color Doppler and spectral/pulsed waveform analysis was perf ormed. Findings: RIGHT SIDE: The common femoral vein demonstrates appropriate compressibility and waveform variability. There is compressibility/patency of the great saphenous vein at the proximal thigh. The femoral vein demonstrates appropriate compressibility and waveform variability. The deep femoral vein demonstrates appropriate compressibility and waveform variability. The popliteal vein demonstrates appropriate compressibility and waveform variability. There is normal compressibility at the tibioperoneal trunk. LEFT SIDE: The common femoral vein demonstrates appropriate compressibility and waveform variability. There is compressibility/patency of the great saphenous vein at the proximal thigh. The femoral vein demonstrates appropriate compressibility and waveform variability. The deep femoral vein demonstrates appropriate compressibility and waveform variability. The popliteal vein demonstrates appropriate compressibility and waveform variability. There is normal compressibility at the tibioperoneal trunk. Impression: No evidence of right or left femoropopliteal venous thrombosis.
[2025-03-15] VITALS (8 sets, daily range): BP systolic 114–139; BP diastolic 47–79; PULSE 63–100; RESP 17–24; TEMP 97.6–98.1; O2SAT 95–99
[2025-03-15] MEDS: HYDROcodone-ACET 5/325MG TAB PO PRN (04:03)
[2025-03-15 07:09] LABS: Basophils # (auto) 0.1 10 ^3/uL (0-0.2); Eosinophils # (auto) 0.4 10 ^3/uL (0-0.8); Eosinophils % (auto) 5.1 % (0.0-7.0); Hematocrit 35.1 % (36.0-46.0); Hemoglobin 11.6 g/dL (12.2-16.2); Lymphocytes # (auto) 1.4 10 ^3/uL (0.4-5.4); Lymphocytes % (auto) 19.7 % (10.0-50.0); Mean Corpuscular Hemoglobin 32.4 pg (28.0-32.0); Mean Corpuscular Volume 98.2 fL (80.0-100.0); Monocytes # (auto) 0.8 10 ^3/uL (0-1.3); Monocytes % (auto) 10.8 % (0.0-12.0); Neutrophils # (auto) 4.6 10 ^3/uL (1.6-8.6); Neutrophils % (auto) 63.4 % (37.0-80.0); Nucleated Red Blood Cells % 0.1 %; Platelet Count (auto) 277 10^3/uL (140-450); Red Blood Cells 3.58 10^6/uL (4.0-5.20); Red Cell Distribution Width 15.3 % (11.8-14.3); White Blood Cell 7.2 10^3/uL (4.4-10.8)
[2025-03-15 07:22] LABS: Albumin 3.6 g/dL (3.2-4.8); Anion Gap 10 (5-15); Aspartate Aminotransferase 19 U/L (13-40); BUN/Creatinine Ratio 18.9 (10.0-20.0); Calcium 9.7 mg/dL (8.7-10.4); Carbon Dioxide 24 mmol/L (20-31); Potassium 4.1 mmol/L (3.5-5.1); Sodium 142 mmol/L (136-145)
[2025-03-15 07:23] LABS: Bilirubin, Total 0.7 mg/dL (0.2-1.0)
[2025-03-15 07:24] LABS: Alanine Aminotransferase 48 U/L (7-40); Alkaline Phosphatase 125 U/L (46-116); Blood Urea Nitrogen 23 mg/dL (9-23); Chloride 108 mmol/L (98-107); Glucose 113 mg/dL (74-106); Total Protein 5.7 g/dL (5.7-8.2)
--- NOTE | 2025-03-15 16:23 | DVHPN2 ---
Subjective Some right-sided abdominal pain Reviewed: Care Plan, H&P, Labs, Medications, Previous Orders, Radiology Changes from previous H/P or p: No Changes General: Per HPI Objective Vitals Vital Signs Date Time Temp Pulse Resp B/P (MAP) Pulse Ox O2 Delivery O2 Flow Rate FiO2 03/15/25 13:00 97.6 63 18 139/66 (90) 98 97.6 03/15/25 08:00 Room Air* 2 N/A Nasal Cannula* Intake/Output Intake and Output 03/15/25 07:00 Intake Total 1120 ml Balance 1120 ml Intake Oral 1120 ml # Voids 3 # Bowel Movements 1 General Appearance: Alert, Oriented X3, Cooperative, No acute distress HEENT: Atraumatic Cardiovascular: Regular rate Abdomen: Other (Some tenderness in the right abdominal area) Medications Current Medications Medications Dose Ordered Sig/Ismael Route Start Time Stop Time Status Last Admin Dose Admin Sodium Chloride 10 ml Q8HR IV 03/12/25 22:00 03/15/25 14:27 10 ML Docusate Sodium 100 mg BIDPRN PRN PO 03/12/25 20:30 Acetaminophen 650 mg Q6HP PRN PO 03/12/25 20:30 Acetaminophen/ Hydrocodone Bitart 1 tab Q4HP PRN PO 03/12/25 20:30 Ondansetron HCl 4 mg Q4HP PRN IV 03/12/25 20:30 Amiodarone HCl 200 mg BID PO 03/12/25 22:00 03/15/25 09:16 200 MG Amlodipine Besylate 10 mg DAILY PO 03/13/25 10:00 03/15/25 09:15 10 MG Atorvastatin Calcium 20 mg HS PO 03/12/25 22:00 03/14/25 21:05 20 MG Clopidogrel Bisulfate 75 mg DAILY PO 03/13/25 10:00 03/15/25 09:16 75 MG Pantoprazole Sodium 40 mg DAILY@0700 PO 03/13/25 07:00 03/15/25 05:15 40 MG Polyethylene Glycol 17 gm DAILY PO 03/13/25 10:00 03/15/25 09:16 17 GM Patient Own Medication 1 tab DAILY PO 03/13/25 10:00 Metoprolol Succinate 25 mg BID PO 03/12/25 22:00 03/15/25 09:15 25 MG Oxybutynin Chloride 5 mg DAILY PO 03/13/25 10:00 Hold Quetiapine Fumarate 50 mg HS PO 03/12/25 22:00 03/14/25 21:05 50 MG Furosemide 20 mg DAILY PO 03/13/25 10:00 03/15/25 09:16 20 MG Apixaban 5 mg BID PO 03/12/25 22:00 03/15/25 09:14 5 MG Acetaminophen/ Hydrocodone Bitart 0.5 tab Q4HPRN PRN PO 03/13/25 14:30 03/15/25 04:03 0.5 TAB Laboratory Results Laboratory Tests 03/15/25 05:22 Chemistry Test 03/15/25 05:22 Albumin 3.6 g/dL (3.2-4.8) Calcium Level 9.7 mg/dL (8.7-10.4) Total Protein 5.7 g/dL (5.7-8.2) LFT Test 03/15/25 05:22 Alanine Aminotransferase (ALT) 48 U/L (7-40) H Alkaline Phosphatase 125 U/L (46-116) H Aspartate Amino Transferase (AST) 19 U/L (13-40) Total Bilirubin 0.7 mg/dL (0.2-1.0) Assessment/Plan Assessment/Plan Abdominal pain Bilateral pulmonary embolism AFib Hypertension Chronic kidney disease stage IIIB Anemia Chronic back pain Obesity Plan: Abdominal CT. Amylase lipase. Urinalysis. Repeat labs. If abdominal CT is negative then possibly MRI should be done looking for possible malignancy that could be behind the development of pulmonary embolism Plan discussed with: Patient, Other (Patient is friend with power of ip technology transactions attorney at bedside) My Orders Orders - JA LIN MD Procedure Category Date Status Time Urinalysis LAB 03/14/25 Logged 18:52 Bilat Lower Dvt US 03/14/25 Resulted 18:53 Ct Ab Pel Wo Con-No CT 03/15/25 Transmitted Oral Or Iv 16:19 Amylase LAB 03/15/25 Transmitted 16:19 Lipase LAB 03/15/25 Transmitted 16:19 Urinalysis LAB 03/15/25 Transmitted 16:19 Complete Blood Count LAB 03/16/25 Verified 06:00 Comprehensive LAB 03/16/25 Verified Metabolic Panel 06:00 Date of Service: March 15, 2025 Billing Provider: JA LIN MD Common Visit Codes: [id number] INP/OBS CARE(HIGH) JA LIN MD March 15, 2025 16:23
[2025-03-15 16:58] LABS: Amylase 111 U/L (30-118); Lipase 84 U/L (12-53)
[2025-03-15 18:40] LABS: Erythrocyte Sedimentation Rate 42 mm/hr (0-20)
[2025-03-15 21:14] LABS: Urine Bacteria None Seen /hpf (None Seen)
[2025-03-15 21:37] LABS: Urine Blood Negative /uL (Negative); Urine Clarity Clear (Clear); Urine Color Light-Yellow (Yellow); Urine Hyaline Cast FEW /lpf (0 - 2); Urine Mucus FEW (None Seen); Urine Protein, UAD Negative (Negative); Urine Specific Gravity 1.013 (1.001-1.035); Urine Squamous Epithelial Cell FEW /hpf (<5); Urine Urobilinogen Normal (Negative); Urine WBC 9 /HPF (0-5); Urine pH 5.5 (5.0-9.0)
[2025-03-16] VITALS (7 sets, daily range): BP systolic 108–138; BP diastolic 58–87; PULSE 66–78; RESP 15–18; TEMP 97.5–98.4; O2SAT 94–98
[2025-03-16 06:02] LABS: Basophils # (auto) 0.1 10 ^3/uL (0-0.2); Basophils % (auto) 0.8 % (0.0-2.0); Eosinophils # (auto) 0.3 10 ^3/uL (0-0.8); Eosinophils % (auto) 3.5 % (0.0-7.0); Hematocrit 37.5 % (36.0-46.0); Hemoglobin 12.4 g/dL (12.2-16.2); Lymphocytes # (auto) 1.2 10 ^3/uL (0.4-5.4); Lymphocytes % (auto) 14.2 % (10.0-50.0); Mean Corpuscular Hemoglobin 31.7 pg (28.0-32.0); Monocytes # (auto) 0.7 10 ^3/uL (0-1.3); Monocytes % (auto) 8.6 % (0.0-12.0); Neutrophils # (auto) 6.3 10 ^3/uL (1.6-8.6); Neutrophils % (auto) 72.9 % (37.0-80.0); Platelet Count (auto) 269 10^3/uL (140-450); White Blood Cell 8.6 10^3/uL (4.4-10.8)
[2025-03-16 06:11] LABS: Albumin 3.5 g/dL (3.2-4.8); Anion Gap 10 (5-15); Aspartate Aminotransferase 17 U/L (13-40); BUN/Creatinine Ratio 16.9 (10.0-20.0); Bilirubin, Total 0.6 mg/dL (0.2-1.0); Calcium 9.4 mg/dL (8.7-10.4); Carbon Dioxide 24 mmol/L (20-31); Potassium 4.2 mmol/L (3.5-5.1); Sodium 142 mmol/L (136-145)
[2025-03-16 06:18] LABS: Alanine Aminotransferase 41 U/L (7-40); Alkaline Phosphatase 120 U/L (46-116); Blood Urea Nitrogen 23 mg/dL (9-23); Chloride 108 mmol/L (98-107); Glucose 109 mg/dL (74-106); Total Protein 5.6 g/dL (5.7-8.2)
[2025-03-16] MEDS: HYDROcodone-ACET 5/325MG TAB PO PRN (10:09)
--- NOTE | 2025-03-16 11:15 | DVHPN2 ---
Reviewed: Care Plan, H&P, Labs, Medications, Previous Orders, Radiology Changes from previous H/P or p: No Changes General: Per HPI Objective Vitals Vital Signs Date Time Temp Pulse Resp B/P (MAP) Pulse Ox O2 Delivery O2 Flow Rate FiO2 03/16/25 10:12 137/71 03/16/25 10:11 73 03/16/25 09:00 97.6 18 97 97.6 03/16/25 08:00 Room Air* 2 N/A Nasal Cannula* Intake/Output Intake and Output 03/16/25 07:00 Intake Total 1628 ml Balance 1628 ml Intake Oral 1628 ml # Voids 6 # Bowel Movements 2 General Appearance: Alert, Oriented X3, Cooperative, No acute distress HEENT: Atraumatic Cardiovascular: Regular rate Abdomen: Other (Some tenderness in the right abdominal area) Medications Current Medications Medications Dose Ordered Sig/Ismael Route Start Time Stop Time Status Last Admin Dose Admin Sodium Chloride 10 ml Q8HR IV 03/12/25 22:00 03/16/25 05:26 10 ML Docusate Sodium 100 mg BIDPRN PRN PO 03/12/25 20:30 Acetaminophen 650 mg Q6HP PRN PO 03/12/25 20:30 Acetaminophen/ Hydrocodone Bitart 1 tab Q4HP PRN PO 03/12/25 20:30 03/16/25 10:09 1 TAB Ondansetron HCl 4 mg Q4HP PRN IV 03/12/25 20:30 Amiodarone HCl 200 mg BID PO 03/12/25 22:00 03/16/25 10:08 200 MG Amlodipine Besylate 10 mg DAILY PO 03/13/25 10:00 03/16/25 10:12 10 MG Atorvastatin Calcium 20 mg HS PO 03/12/25 22:00 03/15/25 21:13 20 MG Clopidogrel Bisulfate 75 mg DAILY PO 03/13/25 10:00 03/16/25 10:11 75 MG Pantoprazole Sodium 40 mg DAILY@0700 PO 03/13/25 07:00 03/16/25 05:26 40 MG Polyethylene Glycol 17 gm DAILY PO 03/13/25 10:00 03/16/25 10:12 17 GM Patient Own Medication 1 tab DAILY PO 03/13/25 10:00 Metoprolol Succinate 25 mg BID PO 03/12/25 22:00 03/16/25 10:11 25 MG Oxybutynin Chloride 5 mg DAILY PO 03/13/25 10:00 Hold Quetiapine Fumarate 50 mg HS PO 03/12/25 22:00 03/15/25 21:13 50 MG Furosemide 20 mg DAILY PO 03/13/25 10:00 03/16/25 10:11 20 MG Apixaban 5 mg BID PO 03/12/25 22:00 03/16/25 10:12 5 MG Acetaminophen/ Hydrocodone Bitart 0.5 tab Q4HPRN PRN PO 03/13/25 14:30 03/15/25 21:21 0.5 TAB Laboratory Results Laboratory Tests 03/16/25 05:26 Chemistry Test 03/16/25 05: Albumin 3.5 g/dL (3.2-4.8) Calcium Level 9.4 mg/dL (8.7-10.4) Total Protein 5.6 g/dL (5.7-8.2) L LFT Test 03/16/25 05:26 Alanine Aminotransferase (ALT) 41 U/L (7-40) H Alkaline Phosphatase 120 U/L (46-116) H Aspartate Amino Transferase (AST) 17 U/L (13-40) Total Bilirubin 0.6 mg/dL (0.2-1.0) Urinalysis Test 03/15/25 21:12 Urine Color Light-yellow (Yellow) Urine Clarity Clear (Clear) Urine pH 5.5 (5.0-9.0) Urine Specific [place] 1.013 (1.001-1.035) Urine Protein Negative (Negative) Urine Ketones Negative (Negative) Urine Blood Negative /uL (Negative) Urine Nitrite Negative (Negative) Urine Bilirubin Negative (Negative) Urine Urobilinogen Normal mg/dL (Negative) Urine Leukocyte Esterase Trace /uL (Negative) Urine RBC None seen /hpf (0 - 4) Urine Microscopic WBC 9 /HPF (0-5) H Urine Squamous Epithelial Cells Few /hpf (<5) Urine Bacteria None seen /hpf (None Seen) Urine Hyaline Casts Few /lpf (0 - 2) Urine Mucus Few (None Seen) Urine Glucose Normal mg/dL (Normal) Labs and/or images reviewed: Labs reviewed by me, Image(s) reviewed by me Assessment/Plan Assessment/Plan Transfer from [facility] Acute Bilateral pulmonary embolism: Transitioned from heparin to Eliquis AFib : Eliquis DVT ruled out Hypertension Chronic kidney disease stage IIIB Anemia Chronic back pain Obesity Tumor markers results Pending CT abdomen pelvis without contrast pending Time spent 70 minutes Advanced care planning time 20 minutes Patient is DNR PCP Dr. Galvez Plan discussed with: Patient Date of Service: March 16, 2025 Billing Provider: SHARLA DONOVAN MD Common Visit Codes: [id number] CARE 30-74 MIN SHARLA DONOVAN MD March 16, 2025 11:15
--- NOTE | 2025-03-16 13:44 | DVH ---
Exam: CT CT AB PEL WO CON-NO ORAL OR IV History: ABDOMINAL PAIN Comparison Study: [facility] on DOS: 10/17/22, [facility] on DOS: 07/04/21 TECHNIQUE: Multidetector CT of the abdomen and pelvis without IV contrast. Axial, coronal and sagitta l multiplanar reformats were obtained from the axial data set by the technologist. Radiation Dose Information: CT Dose: CTDI volume is 20.33 mGy. Dose-length product is 1170.56 mGy*cm FINDINGS: Bibasilar atelectasis. Rysz-yu-lvzffocu cardiomegaly. Status post cholecystectomy. Liver, spleen, pancreas and right adrenal glands unremarkable. Left adre nal hyperplasia with no obvious nodules noted. Mild atrophy of the kidneys. 2.1 cm left renal lower pole cysts. Mild nonspecific bilateral perinephr ic fat stranding. Ureters mildly distended urinary bladder unremarkable. Uterus is not well-visualize d. Question hysterectomy. Mild gastric wall thickening which may be from inadequate distension. Small bowel loops unremarkable . Appendix is unremarkable. Large amount of fecal material within the cecum and ascending colon with moderate amount of fecal material within the rectum. Otherwise, small to moderate amount of fecal ma terial within the remainder of the colon. Descending colon and Sigmoid diverticulosis with segmental wall thickening of the sigmoid and associated adjacent fat stranding. No evidence of intraperitoneal free air or free fluid. No evidence of aortic aneurysm. Rwol-qn-[id number] atherosclerotic calcification of the aorta with mode rate atherosclerotic calcification common iliac arteries. No significant lymphadenopathy. Small fat containing umbilical hernia. Minimal lateral pelvis and hip subcutaneous fat edema. No dest ructive osseous lesions are noted. IMPRESSION: Descending colon and sigmoid diverticulosis with sigmoid diverticulitis. No associated free air or ab scess. Mild wall thickening of the stomach which may be due to inadequate distention/gastritis.
[2025-03-17 05:00] VITALS: BP 98/48; PULSE 69; RESP 17; TEMP 99.1; O2SAT 93
[2025-03-17 08:15] VITALS: PULSE 94
[2025-03-17 08:34] VITALS: BP 115/70; PULSE 64; RESP 18; TEMP 98; O2SAT 92
--- NOTE | 2025-03-17 12:43 | DVHPN2 ---
Subjective Seen and examined at bedside. Caregiver (neighbor) at bedside. Cont Eliquis. Feels constipated. Will get small bowel series. Reviewed: Care Plan, H&P, Labs, Medications, Previous Orders, Radiology Changes from previous H/P or p: No Changes General: Per HPI Objective Vitals Vital Signs Date Time Temp Pulse Resp B/P (MAP) Pulse Ox O2 Delivery O2 Flow Rate FiO2 03/17/25 09:32 67 115/71 03/17/25 08:34 98.0 18 92 98.0 03/17/25 08:05 Room Air* 0 21 Intake/Output Intake and Output 03/17/25 07:00 Intake Total 1355 ml Output Total 250 ml Balance 1105 ml Intake Oral 1355 ml Output Urine Total 250 ml # Voids 3 General Appearance: Alert, Oriented X3, Cooperative, No acute distress HEENT: Atraumatic Cardiovascular: Regular rate Abdomen: Other (Some tenderness in the right abdominal area) Medications Current Medications Medications Dose Ordered Sig/Ismael Route Start Time Stop Time Status Last Admin Dose Admin Sodium Chloride 10 ml Q8HR IV 03/12/25 22:00 03/17/25 05:33 10 ML Docusate Sodium 100 mg BIDPRN PRN PO 03/12/25 20:30 Acetaminophen 650 mg Q6HP PRN PO 03/12/25 20:30 Acetaminophen/ Hydrocodone Bitart 1 tab Q4HP PRN PO 03/12/25 20:30 03/16/25 10:09 1 TAB Ondansetron HCl 4 mg Q4HP PRN IV 03/12/25 20:30 Amiodarone HCl 200 mg BID PO 03/12/25 22:00 03/17/25 09:30 200 MG Amlodipine Besylate 10 mg DAILY PO 03/13/25 10:00 03/17/25 09:31 10 MG Atorvastatin Calcium 20 mg HS PO 03/12/25 22:00 03/16/25 21:20 20 MG Clopidogrel Bisulfate 75 mg DAILY PO 03/13/25 10:00 03/17/25 09:30 75 MG Pantoprazole Sodium 40 mg DAILY@0700 PO 03/13/25 07:00 03/17/25 06:41 40 MG Polyethylene Glycol 17 gm DAILY PO 03/13/25 10:00 03/17/25 09:28 17 GM Patient Own Medication 1 tab DAILY PO 03/13/25 10:00 Metoprolol Succinate 25 mg BID PO 03/12/25 22:00 03/17/25 09:32 25 MG Oxybutynin Chloride 5 mg DAILY PO 03/13/25 10:00 Hold Quetiapine Fumarate 50 mg HS PO 03/12/25 22:00 03/16/25 21:19 50 MG Furosemide 20 mg DAILY PO 03/13/25 10:00 03/17/25 09:31 20 MG Apixaban 5 mg BID PO 03/12/25 22:00 03/17/25 09:30 5 MG Acetaminophen/ Hydrocodone Bitart 0.5 tab Q4HPRN PRN PO 03/13/25 14:30 03/15/25 21:21 0.5 TAB Laboratory Results Laboratory Tests 03/16/25 05:26 Urinalysis Test 03/15/25 21:12 Urine Color Light-yellow (Yellow) Urine Clarity Clear (Clear) Urine pH 5.5 (5.0-9.0) Urine Specific [place] 1.013 (1.001-1.035) Urine Protein Negative (Negative) Urine Ketones Negative (Negative) Urine Blood Negative /uL (Negative) Urine Nitrite Negative (Negative) Urine Bilirubin Negative (Negative) Urine Urobilinogen Normal mg/dL (Negative) Urine Leukocyte Esterase Trace /uL (Negative) Urine RBC None seen /hpf (0 - 4) Urine Microscopic WBC 9 /HPF (0-5) H Urine Squamous Epithelial Cells Few /hpf (<5) Urine Bacteria None seen /hpf (None Seen) Urine Hyaline Casts Few /lpf (0 - 2) Urine Mucus Few (None Seen) Urine Glucose Normal mg/dL (Normal) Assessment/Plan Assessment/Plan Acute Bilateral pulmonary embolism: Transitioned from heparin to Eliquis AFib : Eliquis Gastritis- Protonox and Carafate on DC Hypertension Chronic kidney disease stage IIIB Anemia Chronic back pain due to L Spine Radiculopathy Obesity DNR/DNI Plan discussed with: Patient My Orders Orders - ELYSE CASTILLO MD Procedure Category Date Status Time Small Bowel Series-W XY 03/17/25 Logged Gastrogra 12:31 * Director Of Education And Training CONS 03/17/25 Transmitted Consult Date of Service: March 17, 2025 Billing Provider: ELYSE CASTILLO MD Common Visit Codes: [id number] INP/OBS CARE(HIGH) ELYSE CASTILLO MD March 17, 2025 12:43
[2025-03-17] MEDS ORDERED: GASTROGRAFIN 120 ML SOL ONE (12:58)
[2025-03-17 13:08] VITALS: BP 123/59; PULSE 66; RESP 16; TEMP 98.1; O2SAT 98
[2025-03-17] MEDS ORDERED: cefTRIAXone 2GM/50ML D5W 50 ML IV ONE (15:45)
--- NOTE | 2025-03-17 15:57 | DVH ---
Procedure: XY SMALL BOWEL SERIES-W GASTROGRA Exam Date: 03/17/2025 03:15 PM Reason for study/Clinical History: abdominal pain Comparison Study: None Technique: Single contrast small bowel series performed. Findings: Initial crude oil driver view of the abdomen and pelvis appears demonstrates no acute process. Contrast is identified within the colon by 45 min. This represents a normal small bowel transit time . Small bowel loops are normal in size. Normal mucosal pattern. No evidence of small bowel obstructi on, stricture, or mucosal abnormality. The terminal ileum is well visualized and is unremarkable. IMPRESSION: Normal small bowel series. END IMPRESSION:
[2025-03-17] MEDS: metroNIDAZOLE 500MG/100ML 100 ML IV ONE (16:16)
[2025-03-17 17:05] VITALS: BP 139/96; PULSE 62; RESP 17; TEMP 97.4; O2SAT 96
[2025-03-17] MEDS: cefTRIAXone 2GM/50ML D5W 50 ML IV ONE ×2 (17:22→20:31)
[2025-03-17 21:00] VITALS: BP 148/68; PULSE 72; RESP 18; TEMP 97.5; O2SAT 94
[2025-03-17] MEDS: metroNIDAZOLE 500MG/100ML 100 ML IV SCH (21:46)
[2025-03-18 05:00] VITALS: BP 132/67; PULSE 74; RESP 17; TEMP 97.9; O2SAT 97
--- NOTE | 2025-03-18 08:29 | DVHDS2 ---
Discharge Summary Date of Admission March 12, 2025 at 18:06 Date of Discharge: March 18, 2025 Admitting Diagnosis Acute Sigmoid diverticulitis Labs/Diagnostic Data: Laboratory Results Test 03/16/25 05:26 03/15/25 21:12 03/15/25 16:48 03/15/25 05:22 White Blood Count 8.6 10^3/uL (4.4-10.8) Red Blood Count 3.90 10^6/uL (4.0-5.20) Hemoglobin 12.4 g/dL (12.2-16.2) Hematocrit 37.5 % (36.0-46.0) Mean Corpuscular Volume 96.0 fL (80.0-100.0) Mean Corpuscular Hemoglobin 31.7 pg (28.0-32.0) Mean Corpuscular Hemoglobin Concent 33.0 g/dL (32.0-36.0) Red Cell Distribution Width 15.0 % (11.8-14.3) Platelet Count 269 10^3/uL (140-450) Mean Platelet Volume 8.4 fL (6.9-10.8) Neutrophils (%) (Auto) 72.9 % (37.0-80.0) Lymphocytes (%) (Auto) 14.2 % (10.0-50.0) Monocytes (%) (Auto) 8.6 % (0.0-12.0) Eosinophils (%) (Auto) 3.5 % (0.0-7.0) Basophils (%) (Auto) 0.8 % (0.0-2.0) Neutrophils # (Auto) 6.3 10 ^3/uL (1.6-8.6) Lymphocytes # (Auto) 1.2 10 ^3/uL (0.4-5.4) Monocytes # (Auto) 0.7 10 ^3/uL (0-1.3) Eosinophils # (Auto) 0.3 10 ^3/uL (0-0.8) Basophils # (Auto) 0.1 10 ^3/uL (0-0.2) Nucleated Red Blood Cells 0.0 % Sodium Level 142 mmol/L (136-145) Potassium Level 4.2 mmol/L (3.5-5.1) Chloride Level 108 mmol/L (98-107) Carbon Dioxide Level 24 mmol/L (20-31) Anion Gap 10 (5-15) Blood Urea Nitrogen 23 mg/dL (9-23) Creatinine 1.36 mg/dL (0.550-1.02) Glomerular Filtration Rate Calc 40 mL/min (>90) BUN/Creatinine Ratio 16.9 (10.0-20.0) Serum Glucose 109 mg/dL (74-106) Calcium Level 9.4 mg/dL (8.7-10.4) Total Bilirubin 0.6 mg/dL (0.2-1.0) Aspartate Amino Transferase (AST) 17 U/L (13-40) Alanine Aminotransferase (ALT) 41 U/L (7-40) Alkaline Phosphatase 120 U/L (46-116) Total Protein 5.6 g/dL (5.7-8.2) Albumin 3.5 g/dL (3.2-4.8) Urine Color Light-yellow (Yellow) Urine Clarity Clear (Clear) Urine pH 5.5 (5.0-9.0) Urine Specific [place] 1.013 (1.001-1.035) Urine Protein Negative (Negative) Urine Ketones Negative (Negative) Urine Blood Negative /uL (Negative) Urine Nitrite Negative (Negative) Urine Bilirubin Negative (Negative) Urine Urobilinogen Normal mg/dL (Negative) Urine Leukocyte Esterase Trace /uL (Negative) Urine RBC None seen /hpf (0 - 4) Urine Microscopic WBC 9 /HPF (0-5) Urine Squamous Epithelial Cells Few /hpf (<5) Urine Bacteria None seen /hpf (None Seen) Urine Hyaline Casts Few /lpf (0 - 2) Urine Mucus Few (None Seen) Urine Glucose Normal mg/dL (Normal) Erythrocyte Sedimentation Rate 42 mm/hr (0-20) Tumor Marker Alpha Fetoprotein 9.1 ng/mL (0.0-9.2) C-Reactive Protein High Sensitivity 1.49 mg/dL (<1.0) Amylase Level 111 U/L (30-118) Lipase 84 U/L (12-53) Carcinoembryonic Antigen 1.98 ng/mL (<=5.0) Test 03/12/25 20:37 Prothrombin Time 10.8 sec (9.3-11.8) Prothrombin Time INR 1.02 (0.9-1.15) Other Laboratory Tests 03/16/25 05:26 Brief Hx & Hospital Course: Patient is 79 years old woman with a history of AFib on Plavix, hypertension, dementia, CKD transferred to [facility] further admission from [facility] in [place]. Patient there was diagnosed with bilateral pulmonary embolism without right heart strain. Initially treated with Heparin drip, now on Eliquis. Patient was complaining of abdominal pain, underwent CT Abd Pelvis was found to have Acute Diverticulitis. Will be discharged to SNF for rehab with [facility] for 14 days. Will also continue Eliquis for PE. DVT was ruled out. Needs to be worked up for malignancy as outpatient Operations or Procedures Exam: CT CT AB PEL WO CON-NO ORAL OR IV History: ABDOMINAL PAIN Comparison Study: [facility] on DOS: 10/17/22, [facility] on DOS: 07/04/21 TECHNIQUE: Multidetector CT of the abdomen and pelvis without IV contrast. Axial, coronal and sagittal multiplanar reformats were obtained from the axial data set by the technologist. Radiation Dose Information: CT Dose: CTDI volume is 20.33 mGy. Dose-length product is 1170.56 mGy*cm FINDINGS: Bibasilar atelectasis. Qzqb-cy-eonsakyl cardiomegaly. Status post cholecystectomy. Liver, spleen, pancreas and right adrenal glands unremarkable. Left adrenal hyperplasia with no obvious nodules noted. Mild atrophy of the kidneys. 2.1 cm left renal lower pole cysts. Mild nonspecific bilateral perinephric fat stranding. Ureters mildly distended urinary bladder unremarkable. Uterus is not well-visualized. Question hysterectomy. Mild gastric wall thickening which may be from inadequate distension. Small bowel loops unremarkable. Appendix is unremarkable. Large amount of fecal material within the cecum and ascending colon with moderate amount of fecal material within the rectum. Otherwise, small to moderate amount of fecal material within the remainder of the colon. Descending colon and Sigmoid diverticulosis with segmental wall thickening of the sigmoid and associated adjacent fat stranding. No evidence of intraperitoneal free air or free fluid. No evidence of aortic aneurysm. Xduc-tl-yyiyuznu atherosclerotic calcification of the aorta with moderate atherosclerotic calcification common iliac arteries. No significant lymphadenopathy. Small fat containing umbilical hernia. Minimal lateral pelvis and hip subcutaneous fat edema. No destructive osseous lesions are noted. IMPRESSION: Descending colon and sigmoid diverticulosis with sigmoid diverticulitis. No associated free air or abscess. Mild wall thickening of the stomach which may be due to inadequate distention/gastritis. Condition at Discharge: Poor Final Diagnosis/Problems List Acute Sigmoid diverticulitis Bilateral PE Hard of Hearing Discharge Disposition: Longterm Facility Discharge Instruct/Medications Diet: See Comment Diet comment: Full liquid for 2 weeks for Acute Diverticulitis Activity: Light activity Follow Up/Referral: Dr. Kay in [address] Ryan Mcfarland in 2 weeks Medications: see med [facility] Discharge Statement: "Patient was advised to return to the ER or call 911 if any headaches, dizziness, shortness of breath, chest pain, abdominal pain, bleeding, fevers, or worsening of medical condition. Patient was counseled about treatment plan, medications, possible side effects, patientverbalized understanding. All questions were answered to the best of my ability. This discharge took greater then 30 minutes in planning, reviewing documentation, counseling the patient, and discussing with other team members." ASSESSMENT ASSESSMENT Assessment Date of Service: March 18, 2025 Billing Provider: ELYSE KAY MD Common Visit Codes: [id number] DISCH DAY >30min ELYSE KAY MD March 18, 2025 08:28
[2025-03-18 08:37] VITALS: BP 137/92; PULSE 56; RESP 16; TEMP 98.2; O2SAT 97
[2025-03-18] MEDS: cefTRIAXone 1GM/50ML D5W 50 ML IV SCH (09:00)
[2025-03-18 13:15] VITALS: BP 131/68; PULSE 71; RESP 18; TEMP 98.6; O2SAT 99
[2025-03-18 17:01] VITALS: BP 108/55; PULSE 55; RESP 17; TEMP 98; O2SAT 97
[2025-03-18 20:00] VITALS: PULSE 69; RESP 20; O2SAT 95
[2025-03-18 21:00] VITALS: BP 113/49; PULSE 70; RESP 18; TEMP 97.9; O2SAT 95
[2025-03-18] MEDS: ACETAMINOPHEN 325 MG TAB PO PRN (21:49)
[2025-03-19 01:00] VITALS: BP 132/56; PULSE 69; RESP 20; TEMP 97.5; O2SAT 95
[2025-03-19 05:00] VITALS: BP 105/76; PULSE 63; RESP 20; TEMP 97.5; O2SAT 98
[2025-03-19 08:30] VITALS: BP 113/54; PULSE 69; RESP 15; TEMP 97.4; O2SAT 96
[2025-03-19] MEDS: HALOPERIDOL LACTATE 5 MG/ML INJ VIAL IM ONE (10:45)
[2025-03-19 13:00] VITALS: BP 117/64; PULSE 75; RESP 18; TEMP 97.7; O2SAT 96
--- NOTE | 2025-03-19 15:37 | DVHPN2 ---
Subjective Seen and examined at bedside. DC to SNF. Reviewed: Care Plan, H&P, Labs, Medications, Previous Orders, Radiology Changes from previous H/P or p: No Changes General: Per HPI Objective Vitals Vital Signs Date Time Temp Pulse Resp B/P (MAP) Pulse Ox O2 Delivery O2 Flow Rate FiO2 03/19/25 08:30 97.4 69 15 113/54 (73) 96 97.4 03/19/25 08:00 Room Air* 0 21 Intake/Output Intake and Output 03/19/25 07:00 Intake Total 1000 ml Balance 1000 ml Intake Oral 900 ml IV Total 100 ml # Voids 3 # Bowel Movements 2 General Appearance: Alert, Oriented X3, Cooperative, No acute distress HEENT: Atraumatic Cardiovascular: Regular rate Abdomen: Other (Some tenderness in the right abdominal area) Medications Current Medications Medications Dose Ordered Sig/Ismael Route Start Time Stop Time Status Last Admin Dose Admin Sodium Chloride 10 ml Q8HR IV 03/12/25 22:00 03/19/25 14:46 10 ML Docusate Sodium 100 mg BIDPRN PRN PO 03/12/25 20:30 Acetaminophen 650 mg Q6HP PRN PO 03/12/25 20:30 03/18/25 21:49 650 MG Acetaminophen/ Hydrocodone Bitart 1 tab Q4HP PRN PO 03/12/25 20:30 03/17/25 20:28 1 TAB Ondansetron HCl 4 mg Q4HP PRN IV 03/12/25 20:30 Amiodarone HCl 200 mg BID PO 03/12/25 22:00 03/18/25 21:49 200 MG Amlodipine Besylate 10 mg DAILY PO 03/13/25 10:00 03/18/25 09:19 10 MG Atorvastatin Calcium 20 mg HS PO 03/12/25 22:00 03/18/25 21:48 20 MG Clopidogrel Bisulfate 75 mg DAILY PO 03/13/25 10:00 03/18/25 09:17 75 MG Pantoprazole Sodium 40 mg DAILY@0700 PO 03/13/25 07:00 03/19/25 06:41 40 MG Polyethylene Glycol 17 gm DAILY PO 03/13/25 10:00 03/18/25 09:19 17 GM Patient Own Medication 1 tab DAILY PO 03/13/25 10:00 Metoprolol Succinate 25 mg BID PO 03/12/25 22:00 03/18/25 21:49 25 MG Oxybutynin Chloride 5 mg DAILY PO 03/13/25 10:00 Hold Quetiapine Fumarate 50 mg HS PO 03/12/25 22:00 03/18/25 21:49 50 MG Furosemide 20 mg DAILY PO 03/13/25 10:00 03/18/25 09:19 20 MG Apixaban 5 mg BID PO 03/12/25 22:00 03/18/25 21:49 5 MG Acetaminophen/ Hydrocodone Bitart 0.5 tab Q4HPRN PRN PO 03/13/25 14:30 03/15/25 21:21 0.5 TAB Ceftriaxone Sodium 50 ml @ 100 mls/hr DAILY@09 IV 03/18/25 09:00 03/19/25 09:46 100 MLS/HR Metronidazole 100 ml @ 100 mls/hr Q8HR IV 03/17/25 22:00 03/19/25 14:45 100 MLS/HR Laboratory Results Laboratory Tests 03/16/25 05:26 Urinalysis Test 03/15/25 21:12 Urine Color Light-yellow (Yellow) Urine Clarity Clear (Clear) Urine pH 5.5 (5.0-9.0) Urine Specific [place] 1.013 (1.001-1.035) Urine Protein Negative (Negative) Urine Ketones Negative (Negative) Urine Blood Negative /uL (Negative) Urine Nitrite Negative (Negative) Urine Bilirubin Negative (Negative) Urine Urobilinogen Normal mg/dL (Negative) Urine Leukocyte Esterase Trace /uL (Negative) Urine RBC None seen /hpf (0 - 4) Urine Microscopic WBC 9 /HPF (0-5) H Urine Squamous Epithelial Cells Few /hpf (<5) Urine Bacteria None seen /hpf (None Seen) Urine Hyaline Casts Few /lpf (0 - 2) Urine Mucus Few (None Seen) Urine Glucose Normal mg/dL (Normal) Microbiology Microbiology Date/Time Source Procedure Growth Status 03/17/25 09:38 Nose MRSA Screen - Final Complete Assessment/Plan Assessment/Plan Acute Bilateral pulmonary embolism: Transitioned from heparin to Eliquis AFib : Eliquis Gastritis- Protonox and Carafate on DC Hypertension Chronic kidney disease stage IIIB Anemia Chronic back pain due to L Spine Radiculopathy Obesity DNR/DNI Plan discussed with: Patient Date of Service: March 19, 2025 Billing Provider: ELYSE CASTILLO MD Common Visit Codes: [id number] INP/OBS CARE(HIGH) ELYSE CASTILLO MD March 19, 2025 15:37
[2025-03-19 16:34] VITALS: BP 121/74; PULSE 71; RESP 17; TEMP 97.9; O2SAT 94
== END 2025-03-19 17:15 | DRG 392 ==
LOC: TELE-WESTW 12:47 → UNDOADMIN 12:47 → TELE-WESTW 18:06 → UNDOADMIN 20:20 → TELE-WESTW 20:20 → WEST WING 03-17 12:42
PROVIDERS: ADMIT Internal Medicine; ATTEND Internal Medicine
DX: K57.32 Diverticulitis of large intestine without perforation or abscess without bleeding (principal); R62.7 Adult failure to thrive; N18.32 Chronic kidney disease, stage 3b; I48.91 Unspecified atrial fibrillation; D64.9 Anemia, unspecified; Z66 Do not resuscitate; E66.9 Obesity, unspecified; K29.70 Gastritis, unspecified, without bleeding; F03.90 Unspecified dementia, unspecified severity, without behavioral disturbance, psychotic disturbance, mood disturbance, and anxiety; K59.00 Constipation, unspecified; I12.9 Hypertensive chronic kidney disease with stage 1 through stage 4 chronic kidney disease, or unspecified chronic kidney disease; G89.29 Other chronic pain; S00.03XA Contusion of scalp, initial encounter; M54.16 Radiculopathy, lumbar region; Z79.01 Long term (current) use of anticoagulants; Z68.30 Body mass index [BMI] 30.0-30.9, adult; Z82.49 Family history of ischemic heart disease and other diseases of the circulatory system; Z82.3 Family history of stroke; Z88.0 Allergy status to penicillin; Z79.899 Other long term (current) drug therapy; W18.39XA Other fall on same level, initial encounter; Y93.89 Activity, other specified; Y92.89 Other specified places as the place of occurrence of the external cause; Y99.8 Other external cause status
CPT/HCPCS: 36415; 74176; 74250; 80048; 80053; 81001; 82105; 82150; 82378; 83690; 85025; 85610; 85652; 86141; 87081; 93970; 97110; 97116; 97163; 97530; G0378; J3490

== ENCOUNTER 2025-10-14 12:16 | Inpatient (IN) | payer OTHER ==
[~2025-10-14] VITALS: Ht 167.6 cm; Wt 83.3 kg
[~2025-10-14 12:16] MED LIST changes: -AMIO200T13 PO; -AMLO1TAB22 PO; +AMLO1TAB23 PO; +APIX5TAB PO; -ATOR20TA50 PO; -BIOT50006 PO; -CALC625T13 PO; -CLOP75TA28 PO; +CLOP75TA70 PO; +DIPH50TA9 INJ; -ENAL1TAB43 PO; +HYD20I INJ; +HYDR-4902 PO; -IBUP200C14 PO; +MET50T PO; -METO25TA93 PO; +MORP15TA INJ; -OXYB5TAB24 PO; -POLY335015 PO; +QUET50TA PO; -QUET50TA27 PO; +TRAZ-228 PO
--- NOTE | 2025-10-14 12:29 | ECG ---
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
--- NOTE | 2025-10-14 12:37 | ED.PDOC ---
History of Present Illness HPI Comments 80-year-old female BIBA with prior medical history of AFIB, CAD, High Lipids, HTN, UTI'S: Surgical history of Cholecystectomy, Hysterectomy (partial ), PTCA, Tonsillectomy, colonoscopy, bowel obstruction Sx, cateract Sx, PTCA, partial hysterectomy, tonsillectomy, cholecystectomy, colonoscopy, bowel obstruction Sx, cateract Sx and a chief complaint of shortness a breath. She reports on picking up the patient at which [facility] after the nurses tried to move with the patient from a walker to wheelchair and noticed the patient was weak for which they checked O2 in the patient was satting 87% on room air called 911. When EMS arrived on scene they noticed with the patient was wheezing and was satting 87% on room air for which they gave the patient 2 L O2 via NC which brought it up to 95%. Denies any other symptoms at this time. Denies chills, fever, N/V/D, CP. No other associated symptoms, modifiers, recent injuries or sick contacts present at this time. Time Seen by MD: 12:00 Primary Care Provider: TREV FELDMAN Reviewed Notes: Nurses Notes, Medications, Allergies Allergies: Coded Allergies: Grapefruit Extract (Verified Allergy, Mild, 11/29/20) Penicillins (Verified Allergy, Unknown, 12/17/22) Interview date: 12/15/2022 Patient reported rash, itching arm with scratching when taking PCNs ( PO route) about 5 years ago with home remedies, did not need physician or hospital help at that time. Patient was not sure whether re-challenge with PCNs or [facility] Codeine (Unverified Adverse Reaction, Mild, Constipation , N/V, 12/01/24) Home Meds Reported Medications Potassium Chloride (POTASSIUM CHLORIDE CR) 10 Meq Tb, 8 MEQ PO DAILY, TAB 03/13/25 Furosemide (Furosemide) 20 Mg Tab, 20 MG PO DAILY for 30 Days, MG 03/13/25 Clopidogrel Bisulfate (CLOPIDOGREL) 75 Mg Tab, 75 MG PO DAILY for 30 Days, MG 03/13/25 Diphenhydramine Hcl (Diphenhydramine Hcl) 50 Mg Tab, 1 TAB INJ QPM, #30 TAB 03/12/25 Diphenhydramine Hcl (Diphenhydramine Hcl) 50 Mg Tab, 1 TAB INJ QPM, #30 TAB 03/12/25 Morphine Sulfate (Morphine Sulfate) 15 Mg Tab, 1 TAB INJ QID, #120 TAB 03/12/25 Hydrocodone-Acetaminophen (Hydrocodone Bitartrate/AC 5-325 mg) 1 Tab Tab, 1 TAB PO, TAB 03/12/25 Hydralazine Hcl (Apresoline) 20 Mg/Ml Ij, 20 MG INJ, INJ 03/12/25 Trazodone Hcl (Trazodone Hcl) 100 Mg Tab, 1 TAB PO QPM, #30 TAB 1 Refill 03/12/25 Quetiapine Fumerate (Seroquel) 50 Mg Tab, 1 TAB PO QPM, #30 TAB 2 Refills 03/12/25 Pantoprazole Sodium Sesquihydr (Protonix) 40 Mg Tab, 40 MG PO DAILY, #30 TAB 03/12/25 Metoprolol Tartrate (LOPRESSOR TABLET) 50 Mg Tb, 1 TAB PO BID, #60 TAB 5 Refills 03/12/25 Apixaban Base (ELIQUIS) 5 Mg Tab, 5 MG PO BID, TAB 03/12/25 Amlodipine Besylate (Amlodipine Besylate) 10 Mg Tab, 1 TAB PO DAILY, #30 TAB 5 Refills 03/12/25 Acetaminophen (Tylenol) 650 Mg Rc, 650 MG PO PRN, SUPP.RECT 12/01/24 Information Source: Patient, Emergency Med Personnel Mode of Arrival: EMS Severity: Moderate Timing: Minutes Duration: Since onset, Minutes Prehospital treatment: None Past Medical History PAST MEDICAL HISTORY: AFIB, CAD, High Lipids, HTN, UTI'S Past Medical History (Other): colonoscopy, bowel obstruction Sx, cateract Sx, PTCA, partial hysterectomy, tonsillectomy, cholecystectomy, colonoscopy, bowel obstruction Sx, and cateract Sx Surgical History: Cholecystectomy, Hysterectomy (Partial), PTCA, Tonsillectomy Surgical History (Other): colonoscopy, bowel obstruction Sx, cateract Sx, PTCA, partial hysterectomy, tonsillectomy, cholecystectomy, colonoscopy, bowel obstruction Sx, and cateract Sx GREASE MAN History: No Pertinent GREASE MAN History Family History Family History: No family hx of HTN Family History (Other): Septicemia (Mother), Coronary artery disease (Mother and Father; both at the age of 77, but at 9 months apart) Social History Smoker: Quit Greater Than 1 Year Alcohol: Denies ETOH Use Drugs: Denies Drug Use Lives In: Home Constitutional: denies: chills, diaphoresis, fatigue, fever, malaise, sweats, weakness, others EENTM: denies: blurred vision, double vision, ear bleeding, ear discharge, ear drainage, ear pain, ear ringing, eye pain, eye redness, hearing loss, mouth pain, mouth swelling, nasal discharge, nose bleeding, nose congestion, nose pain, photophobia, tearing, throat pain, throat swelling, voice changes, others Respiratory: reports: shortness of breath, wheezing; denies: cough, hemoptysis, orthopnea, SOB at rest, SOB with excertion, stridor, others Cardiovascular: denies: chest pain, dizzy spells, diaphoresis, Dyspnea on exertion, edema, irregular heart beat, left arm pain, lightheadedness, palpitations, PND, syncope, others Gastrointestinal: denies: abdomen distended, abdominal pain, blood streaked bowels, constipated, diarrhea, dysphagia, difficulty swallowing, hematemesis, melena, nausea, poor appetite, poor fluid intake, rectal bleeding, rectal pain, vomiting, others Genitourinary: denies: abnormal vagina bleeding, burning, dyspareunia, dysuria, flank pain, frequency, hematuria, incontinence, pain, , vagina discharge, urgency, others Neurological: denies: dizziness, fainting, headache, left sided numbness, left sided weakness, numbness, paresthesia, pre-existing deficit, right sided numbness, right sided weakness, seizure, speech problems, tingling, tremors, weakness, others Musculoskeletal: denies: back pain, gout, joint pain, joint swelling, muscle pain, muscle stiffness, neck pain, others Integumetry: denies: bruises, change in color, change in hair/nails, dryness, laceration, lesions, lumps, rash, wounds, others Allergic/Immunocompromised: denies: Difficulty Healing, Frequent Infections, Hives, Itching, others Hematologic/Lymphatic: denies: anemia, blood clots, easy bleeding, easy bruising, swollen glands, others Endocrine: denies: excessive hunger, excessive sweating, excessive thirst, excessive urination, flushing, intolerance to cold, intolerance to heat, unexplained weight gain, unexplained weight loss, others Psychiatric: denies: anxiety, bipolar disorder, depression, hopeless, panic disorder, schizophrenia, sleepless, suicidal, others All Other Systems: Reviewed and Negative Physical Exam General Appearance: Moderate Distress, Normal HEENT: Normal ENT Inspection, Pharynx Normal, TMs Normal Neck: Full Range of Motion, Non-Tender, Normal, Normal Inspection Respiratory: Accessory Muscle Use, Chest Non-Tender, Respiratory Distress, Other (Coarse breath sounds) Cardiovascular: No Edema, No JVD, No Murmur, No Gallop, Normal Peripheral Pulses, Regular Rate/Rhythm Breast Exam: Deferred Gastrointestinal: No Organomegaly, Non Tender, No Pulsatile Mass, Normal Bowel Sounds, Soft Genitalia: Deferred Pelvic: Deferred Rectal: Deferred Extremities: No calf tenderness, Normal capillary refill, Normal inspection, Normal range of motion, Non-tender, No pedal edema Musculoskeletal : Apperance: Normal Neurologic: Alert, drug inspector II-XII nml as Tested, No Motor Deficits, Normal Affect, Normal Mood, No Sensory Deficits Cerebellar Function: NOT DONE Reflexes: NOT DONE Skin: Dry, Normal Color, Warm Peripheral Pulses: 3+ Radial (R), 3+ Radial (L) Lymphatic: No Adenopathy Was a procedure done? Was a procedure done?: No Differential Dx Considerations may include: Pneumonitis Electrolyte imbalance X-Ray, Labs, Meds, VS Vital Signs Date Time Temp Pulse Resp B/P (MAP) Pulse Ox O2 Delivery O2 Flow Rate FiO2 10/14/25 12:46 98.9 72 22 149/56 (87) 92 98.9 10/14/25 12:46 78 22 93 Nasal Cannula* 4 36 10/14/25 12:34 98.8 68 22 141/98 92 98.8 10/14/25 12:21 68 Lab Test 10/14/25 12:50 Range/Units White Blood Count Pending Red Blood Count Pending Hemoglobin Pending Hematocrit Pending Mean Corpuscular Volume Pending Mean Corpuscular Hemoglobin Pending Mean Corpuscular Hemoglobin Concent Pending Red Cell Distribution Width Pending Platelet Count Pending Mean Platelet Volume Pending Neutrophils (%) (Auto) Pending Lymphocytes (%) (Auto) Pending Monocytes (%) (Auto) Pending Basophils (%) (Auto) Pending Neutrophils # (Auto) Pending Lymphocytes # (Auto) Pending Monocytes # (Auto) Pending Prothrombin Time Pending Prothrombin Time INR Pending Activated Partial Thromboplast Time Pending Sodium Level Pending Potassium Level Pending Chloride Level Pending Carbon Dioxide Level Pending Anion Gap Pending Blood Urea Nitrogen Pending Creatinine Pending Glomerular Filtration Rate Calc Pending BUN/Creatinine Ratio Pending Serum Glucose Pending Lactic Acid Level Pending Calcium Level Pending Current Medications Medications (Trade) Dose Ordered Sig/Ismael Route Start Time Stop Time Status Last Admin Azithromycin 250 ml @ 125 mls/hr ONCE ONCE IV 10/14/25 12:30 10/14/25 14:29 10/14/25 13:00 Patient alert. Answering questions. Shortness a breath. Placed on oxygen. Using accessory muscles. Possible pneumonitis pain Was given azithromycin. Was given Rocephin. Was recently discharged from [facility]. Explained to the patient that she will be admitted for further studies. Time of 1ST Reevaluation: 12:31 Reevaluation 1ST: Unchanged Patient Education/Counseling: Diagnosis, Treatment, Prognosis Family Education/Counseling: No Family Present SEPSIS Sepsis Screen Physician Orders Electrocardigram (10/14/25 13:25) Electrocardigram (10/14/25 15:25) Complete Blood Count (10/14/25 12:26) PTPTT (10/14/25 12:26) Urinalysis (10/14/25 12:26) Chest Portable (10/14/25 12:26) Accucheck (10/14/25 12:26) Blood Culture (10/14/25 12:26) Lactic Acid W/ Reflex Order (10/14/25 14:00) Cefepime 1gm/50ml (Maxipime 1gm/50ml) (10/14/25 12:30) Notify Md If Map <65 Or Bp<90 (10/14/25 12:26) If Map<65 Start Vasopressor (10/14/25 12:26) Sepsis Reassesment After Fluid (10/14/25 13:26) Azithromycin 500mg/250ml (Zithromax 500m (10/14/25 12:30) Basic Metabolic Panel (10/14/25 12:26) Vital Signs Date Time Temp Pulse Resp B/P (MAP) Pulse Ox O2 Delivery O2 Flow Rate FiO2 10/14/25 12:46 98.9 72 22 149/56 (87) 92 98.9 10/14/25 12:46 78 22 93 Nasal Cannula* 4 36 10/14/25 12:34 98.8 68 22 141/98 92 98.8 10/14/25 12:21 68 Laboratory Tests Test 10/14/25 12:50 Lactic Acid Level Pending White Blood Count Pending Medications Medications Dose Ordered Sig/Ismael Route Start Time Stop Time Status Last Admin Dose Admin Azithromycin 250 ml @ 125 mls/hr ONCE ONCE IV 10/14/25 12:30 10/14/25 14:29 10/14/25 13:00 Departure 1 Departure Time of Disposition: 13:17 Impression: Primary Impression: Acute respiratory failure Qualified Codes: J96.01 - Acute respiratory failure with hypoxia Additional Impression: Pneumonitis Disposition: ADMITTED INPATIENT Admit to: Med Surg Condition: Guarded Critical Care Note Critical Care Time?: Yes (90 min-critical care time only) Stability Stability form required: No Heart Score Heart Score: Heart Score Response (Comments) Value History Slightly Suspicious 0 EKG Normal 0 Age >65 2 Risk Factors >3 or Hx ASHD 2 Troponin Normal limit 0 Total 4 I personally scribed for KOFFI GRAJEDA MD ([email or web address]) on 10/14/25 at 12:37. Electronically submitted by Eric Ku ([email or web address]). KOFFI GRAJEDA MD Oct 14, 2025 12:37
[2025-10-14 12:46] VITALS: PULSE 78; RESP 22; O2SAT 93
[2025-10-14] MEDS: AZITHROMYCIN 500MG/250ML 250 ML IV ONE (13:00)
--- NOTE | 2025-10-14 13:09 | DVH ---
CLINICAL HISTORY: sob TECHNIQUE: Single view of the chest was obtained. COMPARISON: XR CHEST 2 VIEW on DOS: 09/15/25, CT CHEST WITHOUT CONTRAST on DOS: 12/27/22, XY CHEST PORTABLE on DOS: 12/26/22, XY CHEST TWO VIEWS ROUTINE on DOS: 12/14/22, CXRP on DOS: 10/17/22 FINDINGS: The heart size and pulmonary vasculature are normal. The lungs are clear. IMPRESSION: NO ACUTE CARDIOPULMONARY PROCESS.
[2025-10-14 13:23] LABS: Hematocrit 40.5 % (36.0-46.0); Hemoglobin 13.4 g/dL (12.2-16.2); Mean Corpuscular Hemoglobin 31.2 pg (28.0-32.0); Mean Corpuscular Volume 94.6 fL (80.0-100.0); Nucleated Red Blood Cells % 0.0 %
[2025-10-14 13:29] LABS: Chloride 102 mmol/L (98-107); Sodium 141 mmol/L (136-145)
[2025-10-14 13:30] LABS: Anion Gap 10 (5-15); Calcium 8.7 mg/dL (8.7-10.4); Carbon Dioxide 29 mmol/L (20-31); Potassium 3.3 mmol/L (3.5-5.1)
[2025-10-14 13:35] LABS: BUN/Creatinine Ratio 9.6 (10.0-20.0); Blood Urea Nitrogen 16 mg/dL (9-23); Glucose 102 mg/dL (74-106)
[2025-10-14 13:38] LABS: INR 1.03 (0.9-1.15); Partial Thromboplastin Time 36.6 SEC (24.5-34.5); Prothrombin Time 10.9 sec (9.3-11.8)
--- NOTE | 2025-10-14 13:52 | ECG ---
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
[2025-10-14 15:57] VITALS: PULSE 64; RESP 20; O2SAT 97
[2025-10-14] MEDS: CEFEPIME 1GM/50ML 50 ML IV ONE (16:57)
[2025-10-14 19:50] VITALS: RESP 18; O2SAT 95
[2025-10-14] MEDS ORDERED: SODIUM CHLORIDE 0.9% 1,000 ML IV ONE (21:00)
[2025-10-14] MEDS: IPRATROPIUM BROM 0.5 MG/2.5ML INH SOL NEB SCH (21:00)
[2025-10-14] MEDS ORDERED: MORPHINE SULFATE INJ 2 MG/ml SYRG IV PRN (21:15)
[2025-10-14 21:50] LABS: Base Excess 3.4 mmol/L (-2.0-3.0)
[2025-10-14 21:51] VITALS: PULSE 64; RESP 18; O2SAT 93
[2025-10-14] MEDS ORDERED: APIXABAN 5 MG TAB PO SCH (22:00)
[2025-10-14] MEDS ORDERED: METOPROLOL TARTRATE 50 MG TAB PO SCH (22:00)
[2025-10-14 22:34] LABS: COVID19 ANTIGEN SOFIA FIA NEGATIVE (NEGATIVE)
[2025-10-14] MEDS: POTASSIUM CHL 20MEQ/100ML 100 ML IV ONE (22:47)
[2025-10-14] MEDS ORDERED: AMIO200T33 PO (22:51)
[2025-10-14] MEDS ORDERED: APIX2.5T PO (22:51)
[2025-10-14] MEDS ORDERED: PANT1INJ3 IV (22:51)
[2025-10-14] MEDS ORDERED: AMLO1TAB22 PO (22:51)
[2025-10-14] MEDS: FUROSEMIDE 20 MG/2 ML VIAL IV ONE (22:54)
[2025-10-14] MEDS: APIXABAN 5 MG TAB PO SCH (23:08)
[2025-10-14 23:24] VITALS: BP 125/68; PULSE 64; RESP 17; TEMP 99; O2SAT 97
[2025-10-14 23:27] VITALS: RESP 17
[2025-10-15] VITALS (15 sets, daily range): BP systolic 116–144; BP diastolic 43–67; PULSE 55–65; RESP 16–20; TEMP 97.8–99.1; O2SAT 90–99
--- NOTE | 2025-10-15 01:28 | DVHHP2 ---
Admitting Diagnosis: Acute respiratory failure with hypoxia, Influenza , Pneumonitis History of Present Illness History Source: Patient Exam Limitations: Clinical condition HPI Mrs. Shanel Altamirano is an 80-year-old female with prior medical history of AFIB, CAD, High Lipids, HTN, UTI'S: Surgical history of Cholecystectomy, Hysterectomy (partial ), PTCA, Tonsillectomy, colonoscopy, bowel obstruction Sx, cateract Sx, PTCA, partial hysterectomy, tonsillectomy, cholecystectomy, colonoscopy, bowel obstruction Sx, cataract Sx and a chief complaint of shortness a breath. Limited HPI per ED notes "She reports picking up the patient at which [facility] after the nurses tried to move with the patient from a walker to wheelchair and noticed the patient was weak for which they checked O2 in the patient was sating 87% on room." Patient reports non productive cough, generalized weakness. Denies chest pain, fevers, chills, headaches, dizziness. Patient admitted for further evaluation and treatment. Home Meds Reported Medications Pantoprazole Sodium (PANTOPRAZOLE SODIUM) 40 Mg Inj, 40 MG IV, INJ 10/14/25 Furosemide (Furosemide) 20 Mg Tab, 20 MG PO DAILY, MG 10/14/25 Apixaban Base (ELIQUIS) 2.5 Mg Tab, 2.5 MG PO BID, #1 TAB 10/14/25 Clopidogrel Bisulfate (CLOPIDOGREL) 75 Mg Tab, 75 MG PO DAILY, TAB 10/14/25 Amiodarone Hcl (Amiodarone Hcl) 200 Mg Tab, 200 MG PO Q12HR 10/14/25 Amlodipine Besylate (Amlodipine Besylate) 5 Mg Tab, 10 MG PO DAILY, MG 10/14/25 Potassium Chloride (POTASSIUM CHLORIDE CR) 10 Meq Tb, 8 MEQ PO DAILY, TAB 03/13/25 Furosemide (Furosemide) 20 Mg Tab, 20 MG PO DAILY for 30 Days, MG 03/13/25 Clopidogrel Bisulfate (CLOPIDOGREL) 75 Mg Tab, 75 MG PO DAILY for 30 Days, MG 03/13/25 Diphenhydramine Hcl (Diphenhydramine Hcl) 50 Mg Tab, 1 TAB INJ QPM, #30 TAB 03/12/25 Diphenhydramine Hcl (Diphenhydramine Hcl) 50 Mg Tab, 1 TAB INJ QPM, #30 TAB 03/12/25 Morphine Sulfate (Morphine Sulfate) 15 Mg Tab, 1 TAB INJ QID, #120 TAB 03/12/25 Hydrocodone-Acetaminophen (Hydrocodone Bitartrate/AC 5-325 mg) 1 Tab Tab, 1 TAB PO, TAB 03/12/25 Hydralazine Hcl (Apresoline) 20 Mg/Ml Ij, 20 MG INJ, INJ 03/12/25 Trazodone Hcl (Trazodone Hcl) 100 Mg Tab, 1 TAB PO QPM, #30 TAB 1 Refill 03/12/25 Quetiapine Fumerate (Seroquel) 50 Mg Tab, 1 TAB PO QPM, #30 TAB 2 Refills 03/12/25 Pantoprazole Sodium Sesquihydr (Protonix) 40 Mg Tab, 40 MG PO DAILY, #30 TAB 03/12/25 Metoprolol Tartrate (LOPRESSOR TABLET) 50 Mg Tb, 1 TAB PO BID, #60 TAB 5 Refills 03/12/25 Apixaban Base (ELIQUIS) 5 Mg Tab, 5 MG PO BID, TAB 03/12/25 Amlodipine Besylate (Amlodipine Besylate) 10 Mg Tab, 1 TAB PO DAILY, #30 TAB 5 Refills 03/12/25 Acetaminophen (Tylenol) 650 Mg Rc, 650 MG PO PRN, SUPP.RECT 12/01/24 Past Medical History Cardiac: AFIB, HTN, Hyperlipidemia Central Nervous System: Dementia Renal/: CKD Patient Family History: FH: stroke G8 FATHER FHx: hepatic cirrhosis Family history: Hypertension G8 MOTHER G8 FATHER Hypertension G8 MOTHER Smoker: No Hx (Negative) Alocohol: None Drugs: None Lives with: [facility] Domestic Violence: Neg Review of Systems Constitutional: Weakness Ears, Nose, & Throat: No symptom reported Eyes: No symptom reported Pulmonary/Respiratory: Dyspnea, Cough Cardiovascular: No symptom reported Gastrointestinal: No symptom reported Genitourinary: No symptom reported Musculoskeletal: No symptom reported Skin: No symptom reported Psychiatric: No symptom reported Endocrine: No symptom reported Hemotologic/Lymphatic: No symptom reported H&P Exam Vital Signs Vital Signs Date Time Temp Pulse Resp B/P (MAP) Pulse Ox O2 Delivery O2 Flow Rate FiO2 10/15/25 00:30 64 20 98 10/15/25 00:24 Nasal Cannula* 5 40 10/14/25 22:54 136/49 10/14/25 19:50 99.7 99.7 General Appeara: Well developed, Well nourished, Normal Appearance Head Exam: Normal inspection Neck Exam: Normal inspection, Non-tender, Normal alignment Eye Exam: bilateral eye Normal inspection, bilateral eye PERRL, bilateral eye EOMI Ear Exam: bilateral ear Auricle normal Nasal Exam: Normal inspection Mouth: Normal Inspection Pulmonary/Respiratory: Normal inspection, Normal breath sounds, Chest non- tender, Crackles, Wheezing Cardiovascular/Chest: Normal inspection, Regular rate, Irregularly irregular Peripheral Pulses: 2+ dorsalis pedis (R), 2+ dorsalis pedis (L), 2+ Radial (R), 2+ Radial (L) Abdominal Exam: Normal bowel sounds, Soft TAG MAKER Exam: Normal hearing, Normal speech, PERRL Neuro/Mental St: Alert, Oriented (x2) Eye contact/ Speech: Cooperative Skin Exam: Normal inspection, Normal color, Warm/dry SEPSIS Sepsis Screen Date sepsis recognized/suspect: Oct 14, 2025 Time Sepsis recognized/suspect: 2108 Recent Procedure: No On Antibiotic Therapy: No Respiratory Rate >20: No Heart Rate >90: No Temp<36 C (96.8 F) or >38.3 C: No SBP <90 or MAP <65 mmHG: No New Acute Mental Status Change: No Is the patient on CPAP, BIPAP,: No Physician Orders Communication Order (10/14/25 18:22) Ipratropium Medneb (Atrovent Medneb) (10/14/25 21:00) Ondansetron Hcl (Zofran) (10/14/25 21:00) Pantoprazole (Protonix) (10/15/25 10:00) Azithromycin 500mg/250ml (Zithromax 500m (10/15/25 10:00) Ceftriaxone 1gm/50ml (Rocephin) (10/15/25 10:00) Abg W/ Co-Ox (10/14/25 20:55) Acetaminophen Tablet (Tylenol Tablet) (10/14/25 21:00) Admit (10/14/25 21:02) Fall Risk Precautions In Place QSHIFT (10/14/25 21:02) Strict Aspiration Precautions (10/14/25 21:02) 2 Gm Sodium Diet (10/15/25 Breakfast) Stat Ekg For Chest Pain (10/14/25 21:02) Notify Md Of Changes From Base (10/14/25 21:02) Assembler Show Motor For 24 Hours (10/14/25 21:02) Emergency Dysrhythmia Protocol (10/14/25 21:02) Rhythm Strips Once Every Shift (10/14/25 21:02) Oxygen By Nasal Cannula (10/14/25 21:02) Communication Order (10/14/25 21:13) Furosemide Tablet (Lasix Tablet) (10/15/25 10:00) Pt Request For Service (10/14/25 21:18) * Automotive Service Writer Consult (10/14/25 ) Apixaban (Eliquis) (10/14/25 22:30) Clopidogrel Bisulfate (Plavix) (10/15/25 10:00) (Nf) Amlodipine Besylate (10/15/25 10:00) Amiodarone Tablet (Cordarone Tablet) (10/15/25 10:00) Oseltamivir 30mg Capsule (Tamiflu 30mg C (10/15/25 10:00) Urinalysis (10/14/25 23:15) Mrsa Screen (10/15/25 00:16) * Dietary Consult (10/15/25 00:46) Hepatitis B Surface Antigen (10/15/25 08:00) Hepatitis C Antibody (10/15/25 08:00) Vital Signs Date Time Temp Pulse Resp B/P (MAP) Pulse Ox O2 Delivery O2 Flow Rate FiO2 10/15/25 00:30 64 20 98 10/15/25 00:24 94 Nasal Cannula* 5 40 10/15/25 00:24 64 20 94 10/15/25 00:24 94 Nasal Cannula 5.0 10/14/25 22:54 136/49 10/14/25 21:51 64 18 93 2.0 28 10/14/25 19:50 18 95 Nasal Cannula* 5 40 10/14/25 19:50 99.7 64 18 135/64 (87) 95 99.7 10/14/25 18:00 85 15 116/75 (89) 97 Medications Medications Dose Ordered Sig/Ismael Route Start Time Stop Time Status Last Admin Dose Admin Apixaban 2.5 mg DAILY PO 10/14/25 22:30 10/14/25 23:08 2.5 MG Furosemide 20 mg ONCE ONCE IV 10/14/25 21:30 10/14/25 21:31 DC 10/14/25 22:54 20 MG Ipratropium [place] 0.5 mg Q6HR NEB 10/14/25 21:00 10/15/25 00:24 0.5 MG Potassium Chloride 100 ml @ 50 mls/hr ONCE ONCE IV 10/14/25 21:30 10/14/25 23:29 DC 10/14/25 22:47 50 MLS/HR Labs/Xrays Labs Test 10/14/25 21:48 10/14/25 21:26 10/14/25 21:16 10/14/25 12:50 Range/Units Influenza Type A Antigen Positive Negative Influenza Type B Antigen Negative Negative SARS-CoV-2 Antigen (Rapid) Negative NEGATIVE D-Dimer, Quantitative 0.48 0.0-0.49 mg/L FEU Blood Gas Specimen Type Arterial Blood Gas Sample Site Right radial Blood Gas Patient Temperature 37.0 Arterial Blood Date Drawn [id number] Arterial Blood pH 7.420 7.350-7.450 Arterial Blood Partial Pressure CO2 44.8 32.0-45.0 mmHg Arterial Blood Partial Pressure O2 68.5 L 83.0-108.0 mmHg Arterial Blood HCO3 28.4 H 21.0-28.0 mmol/L Arterial Blood Oxygen Saturation 92.7 L 94.0-98.0 % Arterial Blood Base Excess 3.4 H -2.0-3.0 mmol/L Arterial Blood Oxyhemoglobin 91.5 L 94.0-98.0 % Arterial Blood Carboxyhemoglobin 1.0 0.5-1.5 % Arterial Blood Methemoglobin 0.3 0.0-1.5 % Arterial Blood Deoxyhemoglobin 7.2 H 0.0-5.0 % Alejandro Test Yes Blood Gas Total Hemoglobin 12.40 12.0-16.0 g/dL Blood Gas Liter Flow 4.00 Blood Gas Modality Nasal cannula Blood Gas Spontaneous Rate 21 FiO2 % 36.0 White Blood Count 5.7 4.4-10.8 10^3/uL Red Blood Count 4.28 4.0-5.20 10^6/uL Hemoglobin 13.4 12.2-16.2 g/dL Hematocrit 40.5 36.0-46.0 % Mean Corpuscular Volume 94.6 80.0-100.0 fL Mean Corpuscular Hemoglobin 31.2 28.0-32.0 pg Mean Corpuscular Hemoglobin Concent 33.0 32.0-36.0 g/dL Red Cell Distribution Width 13.6 11.8-14.3 % Platelet Count 260 140-450 10^3/uL Mean Platelet Volume 8.8 6.9-10.8 fL Neutrophils (%) (Auto) 59.9 37.0-80.0 % Lymphocytes (%) (Auto) 21.3 10.0-50.0 % Monocytes (%) (Auto) 17.8 H 0.0-12.0 % Eosinophils (%) (Auto) 0.5 0.0-7.0 % Basophils (%) (Auto) 0.5 0.0-2.0 % Neutrophils # (Auto) 3.4 1.6-8.6 10 ^3/uL Lymphocytes # (Auto) 1.2 0.4-5.4 10 ^3/uL Monocytes # (Auto) 1.0 0-1.3 10 ^3/uL Eosinophils # (Auto) 0 0-0.8 10 ^3/uL Basophils # (Auto) 0 0-0.2 10 ^3/uL Nucleated Red Blood Cells 0.0 % Prothrombin Time 10.9 9.3-11.8 sec Prothrombin Time INR 1.03 0.9-1.15 Activated Partial Thromboplast Time 36.6 H 24.5-34.5 SEC Sodium Level 141 136-145 mmol/L Potassium Level 3.3 L 3.5-5.1 mmol/L Chloride Level 102 98-107 mmol/L Carbon Dioxide Level 29 20-31 mmol/L Anion Gap 10 5-15 Blood Urea Nitrogen 16 9-23 mg/dL Creatinine 1.66 H 0.550-1.02 mg/dL Glomerular Filtration Rate Calc 31 >90 mL/min BUN/Creatinine Ratio 9.6 L 10.0-20.0 Serum Glucose 102 74-106 mg/dL Lactic Acid Level 2.0 0.4-2.0 mmol/L Calcium Level 8.7 8.7-10.4 mg/dL Assessment/Plan Problem List: (1) Acute respiratory failure (2) Hypoxia (3) Pneumonitis (4) Influenza Plan This is an 80-year-old female with known medical history of AFIB, CAD, High Lipids, HTN, UTI'S: Surgical history of Cholecystectomy, Hysterectomy (partial ), PTCA, Tonsillectomy, colonoscopy, bowel obstruction Sx, cateract Sx, PTCA, partial hysterectomy, tonsillectomy, cholecystectomy, colonoscopy, bowel obstruction Sx, cateract Sx who presents to the hospital with of shortness a breath and generalized weakness. Patient found to have 1. Acute respiratory failure with hypoxia 2. Influenza 3. Pneumonitis 4. Afib hx 5. Hypertension 6. CAD 7. Hyperlipidemia Plan Admit Telemetry unit observe overnight supplemental oxygen as needed to keep 02 saturation above 92 % prophylactic IV antibiotics Tamiflu PO Reconcile and continue home medications Antihypertensive as needed for optimal blood pressure management Bronchodilators Monitor BMP Discussed all above with patient who verbalizes agreement and understanding of care plan. All questions were answered. Discussed with supervising MD. Plan discussed with: Patient, Other Code Visit Code Visit Total Time (mins): 45 Additional Comments Additional Comments Additional Comments Patient's chart is reviewed, patient is seen and evaluated and admitted by nurse practitioner grain blender. I agree with her evaluation, documentation, assessment and care plan as outlined. Patient is seen and evaluated by me in person this afternoon and discussed care plan with the patient and nurse at bedside. ESTIVEN JONES Oct 15, 2025 01:28 SHIRLEY HUNTLEY MD Oct 15, 2025 12:54
[2025-10-15] MEDS: ACETAMINOPHEN 325 MG TAB PO PRN (05:48)
[2025-10-15] MEDS: PANTOPRAZOLE 40 MG/10 ML VIAL INJ IV SCH (09:42)
[2025-10-15] MEDS: AZITHROMYCIN 500MG/250ML 250 ML IV SCH (09:43)
[2025-10-15] MEDS: OSELTAMIVIR 30 MG CAP PO SCH (09:43)
[2025-10-15] MEDS: AMIODARONE HCL 200 MG TAB PO SCH (09:44)
[2025-10-15] MEDS: CLOPIDOGREL BISULFATE 75 MG TAB PO SCH (09:44)
[2025-10-15] MEDS: FUROSEMIDE 20 MG TAB PO SCH (09:45)
[2025-10-15] MEDS: methylPREDNISolone SOD SUCC 40 MG/ML VL IV SCH (13:12)
[2025-10-15 16:56] LABS: Urine Protein, UAD Negative (Negative)
[2025-10-15] MEDS: LEVALBUTEROL HCL 1.25 MG/3 ML NEB NEB SCH (19:15)
[2025-10-15] MEDS: ONDANSETRON HCL 4 MG/2 ML VIAL IV PRN (21:46)
[2025-10-15] MEDS ORDERED: methylPREDNISolone SOD SUCC 40 MG/ML VL IV SCH (22:00)
[2025-10-16] VITALS (13 sets, daily range): BP systolic 121–139; BP diastolic 62–79; PULSE 58–90; RESP 16–20; TEMP 98–98.6; O2SAT 90–100
[2025-10-16] MEDS: PANTOPRAZOLE 40 MG TAB PO SCH (05:36)
[2025-10-16 06:32] LABS: Anion Gap 11 (5-15); Carbon Dioxide 28 mmol/L (20-31); Chloride 104 mmol/L (98-107); Potassium 3.7 mmol/L (3.5-5.1); Sodium 143 mmol/L (136-145)
[2025-10-16 06:33] LABS: Calcium 8.9 mg/dL (8.7-10.4)
[2025-10-16 06:38] LABS: BUN/Creatinine Ratio 9.2 (10.0-20.0); Blood Urea Nitrogen 14 mg/dL (9-23)
[2025-10-16 06:43] LABS: Glucose 125 mg/dL (74-106)
[2025-10-16 10:32] LABS: Hepatitis B Surface Antigen Negative (Negative)
[2025-10-16 10:48] LABS: Hepatitis C Antibody Negative (Negative)
--- NOTE | 2025-10-16 15:02 | DVHPN2 ---
Progress Note - Dictate Date Seen: Oct 16, 2025 Medical Necessity Reason Pt with a Central, PICC or Fol: No Subjective She is feeling better today. Her shortness for breath and cough has significantly improved. vital signs Vital Sign Date Time Temp Pulse Resp B/P (MAP) Pulse Ox O2 Delivery O2 Flow Rate FiO2 10/16/25 12:48 72 16 99 10/16/25 12:42 Nasal Cannula* 3 32 10/16/25 09:19 123/74 10/16/25 09:00 98.0 98.0 Total Intake and Output 10/15/25 10/15/25 10/16/25 15:00 23:00 07:00 Intake Total 300 ml 240 ml 500 ml Balance 300 ml 240 ml 500 ml medications Current Medications Medications Dose Ordered Sig/Ismael Route Start Time Stop Time Status Last Admin Dose Admin Ipratropium [place] 0.5 mg Q6HR NEB 10/14/25 21:00 10/16/25 12:42 0.5 MG Ondansetron HCl 4 mg Q6HPRN PRN IV 10/14/25 21:00 10/15/25 21:46 4 MG Acetaminophen 650 mg Q6HPRN PRN PO 10/14/25 21:00 10/15/25 05:48 650 MG Azithromycin 250 ml @ 125 mls/hr DAILY IV 10/15/25 10:00 10/16/25 10:10 125 MLS/HR Ceftriaxone Sodium 50 ml @ 100 mls/hr DAILY IV 10/15/25 10:00 10/16/25 09:17 100 MLS/HR Furosemide 20 mg DAILY PO 10/15/25 10:00 10/16/25 09:19 20 MG Apixaban 2.5 mg DAILY PO 10/14/25 22:30 10/16/25 09:17 2.5 MG Clopidogrel Bisulfate 75 mg DAILY PO 10/15/25 10:00 10/16/25 09:18 75 MG Amlodipine Besylate 10 mg DAILY PO 10/15/25 10:00 10/16/25 09:19 10 MG Amiodarone HCl 200 mg Q12HR PO 10/15/25 10:00 10/16/25 09:17 200 MG Oseltamivir Phosphate 30 mg DAILY PO 10/15/25 10:00 10/20/25 09:59 12/26/25 09:18 30 MG Levalbuterol HCl 0.625 mg Q6HR NEB 10/15/25 18:00 10/16/25 12:42 0.625 MG Methylprednisolone Sodium Succinate 20 mg Q8H IV 10/15/25 13:00 10/16/25 12:17 20 MG Pantoprazole Sodium 40 mg DAILY@0600 PO 10/16/25 06:00 10/16/25 05:36 40 MG objective Alert awake oriented x3. Comfortable in bed without distress. HEENT neck supple no JVD. Heart regular rate and rhythm S1-S2. Lungs fair air movement without any wheezing or rales but poor air entry at the bases. Abdomen soft nontender positive bowel sounds. Extremities no edema positive pulses. laboratory and microbiology Laboratory Tests 10/16/25 05:07 10/14/25 12:50 Test 10/16/25 05:07 Range/Units Serum Glucose 125 H 74-106 mg/dL Assessment/Plan Clinically improving. Continue to titrate down the oxygen as she tolerates. Continue Tamiflu and rest of supportive care and treatment she is on for her breathing problems. Continue home medications as she is on. Physical therapy evaluation out of bed ambulate as tolerated. Further clinical management per clinical course. Discussed with the nurse and patient regarding care plan. Problems(with codes): (1) Influenza A H1N1 infection (2) Generalized weakness (3) Acute respiratory failure (4) Pneumonitis Plan discussed with: Patient SHIRLEY HUNTLEY MD Oct 16, 2025 15:02
[2025-10-17] VITALS (18 sets, daily range): BP systolic 117–152; BP diastolic 45–71; PULSE 56–73; RESP 15–20; TEMP 97.9–98.5; O2SAT 92–100
--- NOTE | 2025-10-17 17:25 | DVHPN2 ---
Progress Note - Dictate Date Seen: Oct 17, 2025 Medical Necessity Reason Pt with a Central, PICC or Fol: No Subjective Feels weak with the activity/ambulation. On 2 L of oxygen via nasal cannula. vital signs Vital Sign Date Time Temp Pulse Resp B/P (MAP) Pulse Ox O2 Delivery O2 Flow Rate FiO2 10/17/25 13:00 98.0 62 18 117/57 (77) 96 98.0 10/17/25 11:19 Nasal Cannula 3.0 10/17/25 11:19 32 Total Intake and Output 10/16/25 10/16/25 10/17/25 15:00 23:00 07:00 Intake Total 300 ml 720 ml 100 ml Balance 300 ml 720 ml 100 ml medications Current Medications Medications Dose Ordered Sig/Ismael Route Start Time Stop Time Status Last Admin Dose Admin Ipratropium [place] 0.5 mg Q6HR NEB 10/14/25 21:00 10/17/25 11:19 0.5 MG Ondansetron HCl 4 mg Q6HPRN PRN IV 10/14/25 21:00 10/15/25 21:46 4 MG Acetaminophen 650 mg Q6HPRN PRN PO 10/14/25 21:00 10/15/25 05:48 650 MG Azithromycin 250 ml @ 125 mls/hr DAILY IV 10/15/25 10:00 10/17/25 10:42 125 MLS/HR Ceftriaxone Sodium 50 ml @ 100 mls/hr DAILY IV 10/15/25 10:00 10/17/25 09:22 100 MLS/HR Furosemide 20 mg DAILY PO 10/15/25 10:00 10/17/25 09:20 20 MG Apixaban 2.5 mg DAILY PO 10/14/25 22:30 10/17/25 09:21 2.5 MG Clopidogrel Bisulfate 75 mg DAILY PO 10/15/25 10:00 10/17/25 09:19 75 MG Amlodipine Besylate 10 mg DAILY PO 10/15/25 10:00 10/17/25 09:21 10 MG Amiodarone HCl 200 mg Q12HR PO 10/15/25 10:00 10/17/25 09:19 200 MG Oseltamivir Phosphate 30 mg DAILY PO 10/15/25 10:00 10/20/25 09:59 10/17/25 09:19 30 MG Levalbuterol HCl 0.625 mg Q6HR NEB 10/15/25 18:00 10/17/25 11:19 0.625 MG Methylprednisolone Sodium Succinate 20 mg Q8H IV 10/15/25 13:00 10/17/25 13:16 20 MG Pantoprazole Sodium 40 mg DAILY@0600 PO 10/16/25 06:00 10/17/25 05:21 40 MG objective Alert awake oriented x3. Comfortable in bed without distress. HEENT neck supple no JVD. Heart regular rate and rhythm S1-S2. Lungs fair air movement without any wheezing or rales but poor air entry at the bases. Abdomen soft nontender positive bowel sounds. Extremities no edema positive pulses. laboratory and microbiology Laboratory Tests 10/16/25 05:07 10/14/25 12:50 Test 10/16/25 05:07 Range/Units Serum Glucose 125 H 74-106 mg/dL Assessment/Plan Clinically improving. Continue to titrate down the oxygen as she tolerates. Continue Tamiflu and rest of supportive care and treatment she is on for her breathing problems. Given her weakness she would benefit from probably going to custodial facility for few days for physical therapy. We will titrate off the oxygen and see if she needs any oxygen with activity. Otherwise continue rest of supportive care and treatment and further clinical management per clinical course. Discussed with the patient as well as nurse at bedside regarding care plan. Problems(with codes): (1) Influenza (2) Hypoxia (3) Pneumonitis (4) Acute respiratory failure Plan discussed with: Patient SHIRLEY HUNTLEY MD Oct 17, 2025 17:24
[2025-10-18] VITALS (17 sets, daily range): BP systolic 113–149; BP diastolic 52–85; PULSE 56–72; RESP 14–19; TEMP 96.9–98.8; O2SAT 92–100
[2025-10-18 16:16] LABS: Hematocrit 37.9 % (36.0-46.0); Hemoglobin 12.7 g/dL (12.2-16.2); Mean Corpuscular Hemoglobin 31.2 pg (28.0-32.0); Mean Corpuscular Volume 93.4 fL (80.0-100.0); Nucleated Red Blood Cells % 0.1 %
[2025-10-18 16:32] LABS: Albumin 3.5 g/dL (3.2-4.8); Alkaline Phosphatase 76 U/L (46-116); Anion Gap 10 (5-15); BUN/Creatinine Ratio 19.7 (10.0-20.0); Bilirubin, Total 0.4 mg/dL (0.2-1.0); Calcium 8.7 mg/dL (8.7-10.4); Carbon Dioxide 30 mmol/L (20-31); Chloride 106 mmol/L (98-107); Potassium 3.6 mmol/L (3.5-5.1)
[2025-10-18 16:33] LABS: Alanine Aminotransferase 129 U/L (7-40); Blood Urea Nitrogen 31 mg/dL (9-23); Glucose 157 mg/dL (74-106); Sodium 146 mmol/L (136-145); Total Protein 5.6 g/dL (5.7-8.2)
--- NOTE | 2025-10-18 16:46 | DVHDS2 ---
Discharge Summary Date of Admission Oct 14, 2025 at 21:02 Date of Discharge: Oct 19, 2025 Labs/Diagnostic Data: Laboratory Results Test 10/18/25 16:08 10/18/25 07:45 10/15/25 16:00 10/15/25 04:45 White Blood Count 5.7 10^3/uL (4.4-10.8) Red Blood Count 4.06 10^6/uL (4.0-5.20) Hemoglobin 12.7 g/dL (12.2-16.2) Hematocrit 37.9 % (36.0-46.0) Mean Corpuscular Volume 93.4 fL (80.0-100.0) Mean Corpuscular Hemoglobin 31.2 pg (28.0-32.0) Mean Corpuscular Hemoglobin Concent 33.4 g/dL (32.0-36.0) Red Cell Distribution Width 13.3 % (11.8-14.3) Platelet Count 284 10^3/uL (140-450) Mean Platelet Volume 8.5 fL (6.9-10.8) Neutrophils (%) (Auto) 83.9 % (37.0-80.0) Lymphocytes (%) (Auto) 4.6 % (10.0-50.0) Monocytes (%) (Auto) 11.4 % (0.0-12.0) Eosinophils (%) (Auto) 0.0 % (0.0-7.0) Basophils (%) (Auto) 0.1 % (0.0-2.0) Neutrophils # (Auto) 4.8 10 ^3/uL (1.6-8.6) Lymphocytes # (Auto) 0.3 10 ^3/uL (0.4-5.4) Monocytes # (Auto) 0.7 10 ^3/uL (0-1.3) Eosinophils # (Auto) 0 10 ^3/uL (0-0.8) Basophils # (Auto) 0 10 ^3/uL (0-0.2) Nucleated Red Blood Cells 0.1 % Sodium Level 146 mmol/L (136-145) Potassium Level 3.6 mmol/L (3.5-5.1) Chloride Level 106 mmol/L (98-107) Carbon Dioxide Level 30 mmol/L (20-31) Anion Gap 10 (5-15) Blood Urea Nitrogen 31 mg/dL (9-23) Creatinine 1.57 mg/dL (0.550-1.02) Glomerular Filtration Rate Calc 33 mL/min (>90) BUN/Creatinine Ratio 19.7 (10.0-20.0) Serum Glucose 157 mg/dL (74-106) Calcium Level 8.7 mg/dL (8.7-10.4) Total Bilirubin 0.4 mg/dL (0.2-1.0) Aspartate Amino Transferase (AST) 62 U/L (13-40) Alanine Aminotransferase (ALT) 129 U/L (7-40) Alkaline Phosphatase 76 U/L (46-116) Total Protein 5.6 g/dL (5.7-8.2) Albumin 3.5 g/dL (3.2-4.8) Influenza Type A Antigen Negative (Negative) Influenza Type B Antigen Negative (Negative) Urine Color Light-yellow (Yellow) Urine Clarity Clear (Clear) Urine pH 5.5 (5.0-9.0) Urine Specific [place] 1.012 (1.001-1.035) Urine Protein Negative (Negative) Urine Ketones Negative (Negative) Urine Blood Trace /uL (Negative) Urine Nitrite Negative (Negative) Urine Bilirubin Negative (Negative) Urine Urobilinogen Normal mg/dL (Negative) Urine Leukocyte Esterase Negative /uL (Negative) Urine RBC 1 /hpf (0 - 4) Urine Microscopic WBC 3 /HPF (0-5) Urine Squamous Epithelial Cells Few /hpf (<5) Urine Bacteria None seen /hpf (None Seen) Urine Hyaline Casts Few /lpf (0 - 2) Urine Mucus Few (None Seen) Urine Glucose Normal mg/dL (Normal) Hepatitis B Surface Antigen Negative (Negative) Hepatitis C Antibody Negative (Negative) Test 10/14/25 21:48 10/14/25 21:26 10/14/25 21:16 10/14/25 12:50 SARS-CoV-2 Antigen (Rapid) Negative (NEGATIVE) D-Dimer, Quantitative 0.48 mg/L FEU (0.0-0.49) Blood Gas Specimen Type Arterial Blood Gas Sample Site Right radial Blood Gas Patient Temperature 37.0 Arterial Blood Date Drawn [id number] Arterial Blood pH 7.420 (7.350-7.450) Arterial Blood Partial Pressure CO2 44.8 mmHg (32.0-45.0) Arterial Blood Partial Pressure O2 68.5 mmHg (83.0-108.0) Arterial Blood HCO3 28.4 mmol/L (21.0-28.0) Arterial Blood Oxygen Saturation 92.7 % (94.0-98.0) Arterial Blood Base Excess 3.4 mmol/L (-2.0-3.0) Arterial Blood Oxyhemoglobin 91.5 % (94.0-98.0) Arterial Blood Carboxyhemoglobin 1.0 % (0.5-1.5) Arterial Blood Methemoglobin 0.3 % (0.0-1.5) Arterial Blood Deoxyhemoglobin 7.2 % (0.0-5.0) Alejandro Test Yes Blood Gas Total Hemoglobin 12.40 g/dL (12.0-16.0) Blood Gas Liter Flow 4.00 Blood Gas Modality Nasal cannula Blood Gas Spontaneous Rate 21 FiO2 % 36.0 Prothrombin Time 10.9 sec (9.3-11.8) Prothrombin Time INR 1.03 (0.9-1.15) Activated Partial Thromboplast Time 36.6 SEC (24.5-34.5) Lactic Acid Level 2.0 mmol/L (0.4-2.0) Other Laboratory Tests 10/18/25 16:08 Brief Hx & Hospital Course: Mrs. Shanel Altamirano is an 80-year-old female with prior medical history of AFIB, CAD, High Lipids, HTN, UTI'S: Surgical history of Cholecystectomy, Hysterectomy (partial ), PTCA, Tonsillectomy, colonoscopy, bowel obstruction Sx, cateract Sx, PTCA, partial hysterectomy, tonsillectomy, cholecystectomy, colonoscopy, bowel obstruction Sx, cataract Sx and a chief complaint of shortness a breath. Limited HPI per ED notes "She reports [facility] after the nurses tried to move with the patient from a walker to wheelchair and noticed the patient was weak for which they checked O2 in the patient was sating 87% on room." Patient reports non productive cough, generalized weakness. Denies chest pain, fevers, chills, headaches, dizziness. Patient admitted for further evaluation and treatment. She is admitted and treated for her influenza infection and respiratory distress with a breathing treatment and steroids and Tamiflu. Patient's symptoms have improved. Otherwise patient's mentation waxing and waning due to her memory impairment. Patient underwent physical therapy evaluation. She has baseline normal status and given her weakness recommended residential facility placement. She has been discharged today in stable condition to SNF. Condition at Discharge: Stable Final Diagnosis/Problems List Influenza infection acute respiratory failure, chronic atrial fibrillation, memory impairment Discharge Disposition: [facility] Discharge Instruct/Medications Diet: Consistent carbohydrate, Cardiac 2g Na,low cholest Activity: No Restrictions, As Tolerated Follow Up/Referral: Primary care physician next week follow up influenza and shortness for breath symptoms and management Medications: See transfer med reconciliation list Scheduled Acetaminophen (Tylenol), 650 MG PO PRN, (Reported) Amiodarone Hcl (Amiodarone Hcl), 200 MG PO Q12HR, (Reported) Amlodipine Besylate (Amlodipine Besylate), 1 TAB PO DAILY, (Reported) Amlodipine Besylate (Amlodipine Besylate), 10 MG PO DAILY, (Reported) Apixaban Base (Eliquis), 5 MG PO BID, (Reported) Apixaban Base (Eliquis), 2.5 MG PO BID, (Reported) Clopidogrel Bisulfate (Clopidogrel), 75 MG PO DAILY, (Reported) Clopidogrel Bisulfate (Clopidogrel), 75 MG PO DAILY, (Reported) Diphenhydramine Hcl (Diphenhydramine Hcl), 1 TAB INJ QPM, (Reported) Diphenhydramine Hcl (Diphenhydramine Hcl), 1 TAB INJ QPM, (Reported) Furosemide (Furosemide), 20 MG PO DAILY, (Reported) Furosemide (Furosemide), 20 MG PO DAILY, (Reported) Metoprolol Tartrate (Lopressor Tablet), 1 TAB PO BID, (Reported) Morphine Sulfate (Morphine Sulfate), 1 TAB INJ QID, (Reported) Pantoprazole Sodium Sesquihydr (Protonix), 40 MG PO DAILY, (Reported) Potassium Chloride (Potassium Chloride Cr), 8 MEQ PO DAILY, (Reported) Quetiapine Fumerate (Seroquel), 1 TAB PO QPM, (Reported) Trazodone Hcl (Trazodone Hcl), 1 TAB PO QPM, (Reported) Miscellaneous Medications Hydralazine Hcl (Apresoline), 20 MG INJ, (Reported) Hydrocodone-Acetaminophen (Hydrocodone Bitartrate/AC 5-325 mg), 1 TAB PO, (Reported) Pantoprazole Sodium (Pantoprazole Sodium), 40 MG IV, (Reported) Discharge Statement: "Patient was advised to return to the ER or call 911 if any headaches, dizziness, shortness of breath, chest pain, abdominal pain, bleeding, fevers, or worsening of medical condition. Patient was counseled about treatment plan, medications, possible side effects, patientverbalized understanding. All questions were answered to the best of my ability. This discharge took greater then 30 minutes in planning, reviewing documentation, counseling the patient, and discussing with other team members." ASSESSMENT ASSESSMENT Assessment Influenza infection acute respiratory failure, chronic atrial fibrillation, memory impairment SHIRLEY HUNTLEY MD Oct 18, 2025 16:46
[2025-10-18] MEDS: LACTULOSE 20Gm/30ML SOLN PO ONE (17:19)
--- NOTE | 2025-10-18 17:19 | DVHPN2 ---
Progress Note - Dictate Date Seen: Oct 18, 2025 Medical Necessity Reason Pt with a Central, PICC or Fol: No Subjective Clinically stable. Repeat influenza a came back negative today. Complains of constipation. Pending PT eval for skilled nurse facility placement. vital signs Vital Sign Date Time Temp Pulse Resp B/P (MAP) Pulse Ox O2 Delivery O2 Flow Rate FiO2 10/18/25 16:32 98.2 56 19 137/70 (92) 97 98.2 10/18/25 11:25 Nasal Cannula* 2 28 Total Intake and Output 10/17/25 10/17/25 10/18/25 15:00 23:00 07:00 Intake Total 300 ml 300 ml 200 ml Balance 300 ml 300 ml 200 ml medications Current Medications Medications Dose Ordered Sig/Ismael Route Start Time Stop Time Status Last Admin Dose Admin Ipratropium [place] 0.5 mg Q6HR NEB 10/14/25 21:00 10/18/25 11:23 0.5 MG Ondansetron HCl 4 mg Q6HPRN PRN IV 10/14/25 21:00 10/15/25 21:46 4 MG Acetaminophen 650 mg Q6HPRN PRN PO 10/14/25 21:00 10/15/25 05:48 650 MG Furosemide 20 mg DAILY PO 10/15/25 10:00 10/18/25 09:45 20 MG Apixaban 2.5 mg DAILY PO 10/14/25 22:30 10/18/25 09:45 2.5 MG Clopidogrel Bisulfate 75 mg DAILY PO 10/15/25 10:00 10/18/25 09:44 75 MG Amlodipine Besylate 10 mg DAILY PO 10/15/25 10:00 10/18/25 09:45 10 MG Amiodarone HCl 200 mg Q12HR PO 10/15/25 10:00 10/18/25 09:44 200 MG Oseltamivir Phosphate 30 mg DAILY PO 10/15/25 10:00 10/20/25 09:59 10/18/25 09:44 30 MG Levalbuterol HCl 0.625 mg Q6HR NEB 10/15/25 18:00 10/18/25 11:23 0.625 MG Pantoprazole Sodium 40 mg DAILY@0600 PO 10/16/25 06:00 10/18/25 05:50 40 MG objective Alert awake oriented x3. Comfortable in bed without distress. HEENT neck supple no JVD. Heart regular rate and rhythm S1-S2. Lungs fair air movement without any wheezing or rales but poor air entry at the bases. Abdomen soft nontender positive bowel sounds. Extremities no edema positive pulses. laboratory and microbiology Laboratory Tests 10/18/25 16:08 Test 10/18/25 16:08 Range/Units Serum Glucose 157 H 74-106 mg/dL Assessment/Plan Clinically improving. Continue to titrate down the oxygen as she tolerates. Lactulose for constipation. Discharge plan to intermediate facility in a.m.. Discussed with the patient and nurse. Problems(with codes): (1) Generalized weakness (2) Influenza (3) Hypoxia (4) Acute respiratory failure Plan discussed with: Patient, Other SHIRLEY HUNTLEY MD Oct 18, 2025 17:19
--- NOTE | 2025-10-18 18:25 | DVH ---
CHEST RADIOGRAPH INDICATION: influenza/sob TECHNIQUE: Single frontal view of the chest was obtained COMPARISON: XY CHEST PORTABLE on DOS: 10/14/25, XY CHEST PORTABLE on DOS: 12/26/22, CXRP on DOS: 10/17/22 FINDINGS/IMPRESSION: Prominence of the interstitial markings. Unchanged cardiomediastinal silhouette. No pleural effusion or pneumothorax. No acute osseous abnormality.
--- NOTE | 2025-10-18 23:06 | DVHINCON2 ---
Date of service: Oct 16, [address] Hemphill Reason for Consultation Acute hypoxic respiratory failure, influenza and pneumonia History of Present Illness An 80-year-old woman with prior medical history of AFIB, CAD, High Lipids, HTN, and UTIs who presented to ED on 10/14/25 with a chief complaint of shortness of breath. Limited HPI. Per ED notes, pt [facility] where after the nurses tried to move the patient from a walker to wheelchair, pt was noted to be weak with O2 sat of 87% on room air. Patient reported nonproductive cough, generalized weakness. Denied chest pain, fevers, chills, headaches, or dizziness. Patient was admitted for further care. Pulmonary consultation is requested for evaluation and management of acute hypoxic respiratory failure, influenza and pneumonia Review of Systems: 14-point review of systems negative unless otherwise noted above. Past Medical History: AFIB, CAD, High Lipids, HTN, and UTIs Past Surgical History: Cholecystectomy, Hysterectomy (partial ), PTCA, Tonsillectomy, colonoscopy, bowel obstruction surgery, cataract surgery Medications: Reviewed. Allergies: Grapefruit Extract Penicillins Codeine Family History: No family history of premature CAD. No family history of lung disorders. Social History: Nonsmoker. No alcohol or illicit drug use. Family History: FH: stroke G8 FATHER FHx: hepatic cirrhosis Family history: Hypertension G8 MOTHER G8 FATHER Hypertension G8 MOTHER Allergies: Coded Allergies: Grapefruit Extract (Verified Allergy, Mild, 11/29/20) Penicillins (Verified Allergy, Unknown, 12/17/22) Interview date: 12/15/2022 Patient reported rash, itching arm with scratching when taking PCNs ( PO route) about 5 years ago with home remedies, did not need physician or hospital help at that time. Patient was not sure whether re-challenge with PCNs or [facility] Codeine (Unverified Adverse Reaction, Mild, Constipation , N/V, 12/01/24) Home Meds Reported Medications Pantoprazole Sodium (PANTOPRAZOLE SODIUM) 40 Mg Inj, 40 MG IV, INJ 10/14/25 Furosemide (Furosemide) 20 Mg Tab, 20 MG PO DAILY, MG 10/14/25 Apixaban Base (ELIQUIS) 2.5 Mg Tab, 2.5 MG PO BID, #1 TAB 10/14/25 Clopidogrel Bisulfate (CLOPIDOGREL) 75 Mg Tab, 75 MG PO DAILY, TAB 10/14/25 Amiodarone Hcl (Amiodarone Hcl) 200 Mg Tab, 200 MG PO Q12HR 10/14/25 Amlodipine Besylate (Amlodipine Besylate) 5 Mg Tab, 10 MG PO DAILY, MG 10/14/25 Potassium Chloride (POTASSIUM CHLORIDE CR) 10 Meq Tb, 8 MEQ PO DAILY, TAB 03/13/25 Furosemide (Furosemide) 20 Mg Tab, 20 MG PO DAILY for 30 Days, MG 03/13/25 Clopidogrel Bisulfate (CLOPIDOGREL) 75 Mg Tab, 75 MG PO DAILY for 30 Days, MG 03/13/25 Diphenhydramine Hcl (Diphenhydramine Hcl) 50 Mg Tab, 1 TAB INJ QPM, #30 TAB 03/12/25 Diphenhydramine Hcl (Diphenhydramine Hcl) 50 Mg Tab, 1 TAB INJ QPM, #30 TAB 03/12/25 Morphine Sulfate (Morphine Sulfate) 15 Mg Tab, 1 TAB INJ QID, #120 TAB 03/12/25 Hydrocodone-Acetaminophen (Hydrocodone Bitartrate/AC 5-325 mg) 1 Tab Tab, 1 TAB PO, TAB 03/12/25 Hydralazine Hcl (Apresoline) 20 Mg/Ml Ij, 20 MG INJ, INJ 03/12/25 Trazodone Hcl (Trazodone Hcl) 100 Mg Tab, 1 TAB PO QPM, #30 TAB 1 Refill 03/12/25 Quetiapine Fumerate (Seroquel) 50 Mg Tab, 1 TAB PO QPM, #30 TAB 2 Refills 03/12/25 Pantoprazole Sodium Sesquihydr (Protonix) 40 Mg Tab, 40 MG PO DAILY, #30 TAB 03/12/25 Metoprolol Tartrate (LOPRESSOR TABLET) 50 Mg Tb, 1 TAB PO BID, #60 TAB 5 Refills 03/12/25 Apixaban Base (ELIQUIS) 5 Mg Tab, 5 MG PO BID, TAB 03/12/25 Amlodipine Besylate (Amlodipine Besylate) 10 Mg Tab, 1 TAB PO DAILY, #30 TAB 5 Refills 03/12/25 Acetaminophen (Tylenol) 650 Mg Rc, 650 MG PO PRN, SUPP.RECT 12/01/24 Vital Signs Vital Signs Date Time Temp Pulse Resp B/P (MAP) Pulse Ox O2 Delivery O2 Flow Rate FiO2 10/18/25 21:00 98.1 62 16 149/85 (106) 94 98.1 10/18/25 18:35 Nasal Cannula* 2 28 Physical Exam Gen.: Patient lying in bed in no apparent distress. On supplemental oxygen. Head: Normocephalic, atraumatic. Eyes: EOMI/PERRLA. Ears: Normal hearing. Normal anatomy. Neck/trachea: Trachea midline, supple. Nose: Normal external anatomy. Mouth: Moist mucous membranes. Chest: Decreased air entry bilaterally. No wheezing or rhonchi. Cardiovascular: Positive S1, positive S2. Regular rate and rhythm. Abdomen: Positive bowel sounds in all 4 quadrants. Soft, non-tender, non- distended. : Deferred. Rectal: Deferred. Skin: Warm, dry. Intact. Extremities: 2+ radial pulses bilaterally. No lower extremity edema. Neuro: Awake, alert, oriented x3. No gross motor or sensory deficits. Cranial nerves II through XII intact. Gait not assessed. Labs/Diagnostic Data Labs Test 10/18/25 16:08 10/18/25 07:45 10/15/25 16:00 10/15/25 04:45 Range/Units White Blood Count 5.7 4.4-10.8 10^3/uL Red Blood Count 4.06 4.0-5.20 10^6/uL Hemoglobin 12.7 12.2-16.2 g/dL Hematocrit 37.9 36.0-46.0 % Mean Corpuscular Volume 93.4 80.0-100.0 fL Mean Corpuscular Hemoglobin 31.2 28.0-32.0 pg Mean Corpuscular Hemoglobin Concent 33.4 32.0-36.0 g/dL Red Cell Distribution Width 13.3 11.8-14.3 % Platelet Count 284 140-450 10^3/uL Mean Platelet Volume 8.5 6.9-10.8 fL Neutrophils (%) (Auto) 83.9 H 37.0-80.0 % Lymphocytes (%) (Auto) 4.6 L 10.0-50.0 % Monocytes (%) (Auto) 11.4 0.0-12.0 % Eosinophils (%) (Auto) 0.0 0.0-7.0 % Basophils (%) (Auto) 0.1 0.0-2.0 % Neutrophils # (Auto) 4.8 1.6-8.6 10 ^3/uL Lymphocytes # (Auto) 0.3 L 0.4-5.4 10 ^3/uL Monocytes # (Auto) 0.7 0-1.3 10 ^3/uL Eosinophils # (Auto) 0 0-0.8 10 ^3/uL Basophils # (Auto) 0 0-0.2 10 ^3/uL Nucleated Red Blood Cells 0.1 % Sodium Level 146 H 136-145 mmol/L Potassium Level 3.6 3.5-5.1 mmol/L Chloride Level 106 98-107 mmol/L Carbon Dioxide Level 30 20-31 mmol/L Anion Gap 10 5-15 Blood Urea Nitrogen 31 H 9-23 mg/dL Creatinine 1.57 H 0.550-1.02 mg/dL Glomerular Filtration Rate Calc 33 >90 mL/min BUN/Creatinine Ratio 19.7 10.0-20.0 Serum Glucose 157 H 74-106 mg/dL Calcium Level 8.7 8.7-10.4 mg/dL Total Bilirubin 0.4 0.2-1.0 mg/dL Aspartate Amino Transferase (AST) 62 H 13-40 U/L Alanine Aminotransferase (ALT) 129 H 7-40 U/L Alkaline Phosphatase 76 46-116 U/L Total Protein 5.6 L 5.7-8.2 g/dL Albumin 3.5 3.2-4.8 g/dL Influenza Type A Antigen Negative Negative Influenza Type B Antigen Negative Negative Urine Color Light-yellow Yellow Urine Clarity Clear Clear Urine pH 5.5 5.0-9.0 Urine Specific [place] 1.012 1.001-1.035 Urine Protein Negative Negative Urine Ketones Negative Negative Urine Blood Trace H Negative /uL Urine Nitrite Negative Negative Urine Bilirubin Negative Negative Urine Urobilinogen Normal Negative mg/dL Urine Leukocyte Esterase Negative Negative /uL Urine RBC 1 0 - 4 /hpf Urine Microscopic WBC 3 0-5 /HPF Urine Squamous Epithelial Cells Few <5 /hpf Urine Bacteria None seen None Seen /hpf Urine Hyaline Casts Few 0 - 2 /lpf Urine Mucus Few None Seen Urine Glucose Normal Normal mg/dL Hepatitis B Surface Antigen Negative Negative Hepatitis C Antibody Negative Negative Test 10/14/25 21:48 10/14/25 21:26 10/14/25 21:16 10/14/25 12:50 Range/Units SARS-CoV-2 Antigen (Rapid) Negative NEGATIVE D-Dimer, Quantitative 0.48 0.0-0.49 mg/L FEU Blood Gas Specimen Type Arterial Blood Gas Sample Site Right radial Blood Gas Patient Temperature 37.0 Arterial Blood Date Drawn [id number] Arterial Blood pH 7.420 7.350-7.450 Arterial Blood Partial Pressure CO2 44.8 32.0-45.0 mmHg Arterial Blood Partial Pressure O2 68.5 L 83.0-108.0 mmHg Arterial Blood HCO3 28.4 H 21.0-28.0 mmol/L Arterial Blood Oxygen Saturation 92.7 L 94.0-98.0 % Arterial Blood Base Excess 3.4 H -2.0-3.0 mmol/L Arterial Blood Oxyhemoglobin 91.5 L 94.0-98.0 % Arterial Blood Carboxyhemoglobin 1.0 0.5-1.5 % Arterial Blood Methemoglobin 0.3 0.0-1.5 % Arterial Blood Deoxyhemoglobin 7.2 H 0.0-5.0 % Alejandro Test Yes Blood Gas Total Hemoglobin 12.40 12.0-16.0 g/dL Blood Gas Liter Flow 4.00 Blood Gas Modality Nasal cannula Blood Gas Spontaneous Rate 21 FiO2 % 36.0 Prothrombin Time 10.9 9.3-11.8 sec Prothrombin Time INR 1.03 0.9-1.15 Activated Partial Thromboplast Time 36.6 H 24.5-34.5 SEC Lactic Acid Level 2.0 0.4-2.0 mmol/L Microbiology Date/Time Source Procedure Growth Status 10/15/25 00:20 Nose MRSA Screen - Final Complete 10/14/25 12:51 Blood Blood Culture - Preliminary NO GROWTH AFTER 72 HOURS OF INCUBATION. Resulted Assessment Impression: Acute hypoxic respiratory failure Dependence on supplemental oxygen Influenza Pneumonia, likely GNR Atrial fibrillation Obesity Plan: Supplemental oxygen Titrate to keep O2 sats above 92%. On 2 LPM NC Taper O2 as tolerated. IV steroids Tamiflu course Continue bronchodilators. Antibiotics - pt received 2 days of abx for pneumonia Incentive spirometry Amiodarone PO/Eliquis PO BID for atrial fibrillation Cardiology recs appreciated Protonix for GI ppx Diurese with Lasix as tolerated Monitor renal function. Monitor electrolytes. Supplement as necessary. Monitor ins and outs. Recommend diet and lifestyle modifications for weight reduction Obesity complicates all care GI/DVT prophylaxis. Prognosis: Poor given patient's multiple co-morbidities. Rest of plan per hospitalist and other consultants. Thank you, Dr. Hemphill, for allowing me to participate in this patient's care. Further recommendations will depend on the patient's clinical course. Please do not hesitate to contact me if you have any questions or concerns. This medical document was created using an electronic medical record system with [employer] dictation system. Although these documentations are being carefully reviewed, there may still be some phonetic and typographical changes. The errors are purely typographical, due to imperfection on the software program, and do not reflect any compromise in the patient's medical care. Plan discussed with: Patient, Other (TUCKER Rojas/) RUFINA ELI [facility] Oct 18, 2025 23:06
--- NOTE | 2025-10-18 23:07 | DVHPN2 ---
Progress Note - Dictate Date Seen: Oct 17, 2025 Medical Necessity Reason Pt with a Central, PICC or Fol: No Subjective Patient seen and examined at bedside. Remains on supplemental oxygen Overnight events reviewed. vital signs Vital Sign Date Time Temp Pulse Resp B/P (MAP) Pulse Ox O2 Delivery O2 Flow Rate FiO2 10/18/25 21:00 98.1 62 16 149/85 (106) 94 98.1 10/18/25 18:35 Nasal Cannula* 2 28 Total Intake and Output 10/17/25 10/17/25 10/18/25 14:59 22:59 06:59 Intake Total 300 ml 300 ml 200 ml Balance 300 ml 300 ml 200 ml medications Current Medications Medications Dose Ordered Sig/Ismael Route Start Time Stop Time Status Last Admin Dose Admin Ipratropium [place] 0.5 mg Q6HR NEB 10/14/25 21:00 10/18/25 18:28 Ondansetron HCl 4 mg Q6HPRN PRN IV 10/14/25 21:00 10/15/25 21:46 Acetaminophen 650 mg Q6HPRN PRN PO 10/14/25 21:00 10/15/25 05:48 Furosemide 20 mg DAILY PO 10/15/25 10:00 10/18/25 09:45 Apixaban 2.5 mg DAILY PO 10/14/25 22:30 10/18/25 09:45 Clopidogrel Bisulfate 75 mg DAILY PO 10/15/25 10:00 10/18/25 09:44 Amlodipine Besylate 10 mg DAILY PO 10/15/25 10:00 10/18/25 09:45 Amiodarone HCl 200 mg Q12HR PO 10/15/25 10:00 10/18/25 22:07 Oseltamivir Phosphate 30 mg DAILY PO 10/15/25 10:00 10/20/25 09:59 10/18/25 09:44 Levalbuterol HCl 0.625 mg Q6HR NEB 10/15/25 18:00 10/18/25 18:28 Pantoprazole Sodium 40 mg DAILY@0600 PO 10/16/25 06:00 10/18/25 05:50 objective Gen.: Patient lying in bed in no apparent distress. On supplemental oxygen. Head: Normocephalic, atraumatic. Eyes: EOMI/PERRLA. Ears: Normal hearing. Normal anatomy. Neck/trachea: Trachea midline, supple. Nose: Normal external anatomy. Mouth: Moist mucous membranes. Chest: Decreased air entry bilaterally. No wheezing or rhonchi. Cardiovascular: Positive S1, positive S2. Regular rate and rhythm. Abdomen: Positive bowel sounds in all 4 quadrants. Soft, non-tender, non- distended. : Deferred. Rectal: Deferred. Skin: Warm, dry. Intact. Extremities: 2+ radial pulses bilaterally. No lower extremity edema. Neuro: Awake, alert, oriented x3. No gross motor or sensory deficits. Cranial nerves II through XII intact. Gait not assessed. laboratory and microbiology Laboratory Tests 10/18/25 16:08 Test 10/18/25 16:08 Range/Units Serum Glucose 157 H 74-106 mg/dL Assessment/Plan Impression: Acute hypoxic respiratory failure Dependence on supplemental oxygen Influenza Pneumonia, likely GNR Atrial fibrillation Obesity Events: Remains on supplemental oxygen, 2 LPM NC Taper O2 as tolerated No acute overnight events. Check chest x-ray in AM to assess for interval changes. Continue bronchodilators Continue steroids Continue antibiotics Tamiflu Incentive spirometry Amiodarone PO/Eliquis PO BID Continue diuresis with Lasix as tolerated Monitor renal function. Monitor electrolytes. Supplement as necessary. Labs and imaging reviewed. Rest of plan as noted below. Plan: Supplemental oxygen Titrate to keep O2 sats above 92%. IV steroids Tamiflu course Continue bronchodilators. Antibiotics - pt received 2 days of abx for pneumonia Incentive spirometry Amiodarone PO/Eliquis PO BID for atrial fibrillation Cardiology recs appreciated Protonix for GI ppx Diurese with Lasix as tolerated Monitor renal function. Monitor electrolytes. Supplement as necessary. Monitor ins and outs. Recommend diet and lifestyle modifications for weight reduction Obesity complicates all care GI/DVT prophylaxis. Prognosis: Poor given patient's multiple co-morbidities. Rest of plan per hospitalist and other consultants. Thank you, Dr. Hemphill, for allowing me to participate in this patient's care. Further recommendations will depend on the patient's clinical course. Please do not hesitate to contact me if you have any questions or concerns. This medical document was created using an electronic medical record system with [employer] system. Although these documentations are being carefully reviewed, there may still be some phonetic and typographical changes. The errors are purely typographical, due to imperfection on the software program, and do not reflect any compromise in the patient's medical care. Plan discussed with: Patient, Other (TUCKER Rojas) RUFINA ELI [facility] Oct 18, 2025 23:07
--- NOTE | 2025-10-18 23:07 | DVHPN2 ---
Progress Note - Dictate Date Seen: Oct 18, 2025 Medical Necessity Reason Pt with a Central, PICC or Fol: No Subjective Patient seen and examined at bedside. Remains on supplemental oxygen Overnight events reviewed. vital signs Vital Sign Date Time Temp Pulse Resp B/P (MAP) Pulse Ox O2 Delivery O2 Flow Rate FiO2 10/18/25 21:00 98.1 62 16 149/85 (106) 94 98.1 10/18/25 18:35 Nasal Cannula* 2 28 Total Intake and Output 10/17/25 10/17/25 10/18/25 14:59 22:59 06:59 Intake Total 300 ml 300 ml 200 ml Balance 300 ml 300 ml 200 ml medications Current Medications Medications Dose Ordered Sig/Ismael Route Start Time Stop Time Status Last Admin Dose Admin Ipratropium [place] 0.5 mg Q6HR NEB 10/14/25 21:00 10/18/25 18:28 Ondansetron HCl 4 mg Q6HPRN PRN IV 10/14/25 21:00 10/15/25 21:46 Acetaminophen 650 mg Q6HPRN PRN PO 10/14/25 21:00 10/15/25 05:48 Furosemide 20 mg DAILY PO 10/15/25 10:00 10/18/25 09:45 Apixaban 2.5 mg DAILY PO 10/14/25 22:30 10/18/25 09:45 Clopidogrel Bisulfate 75 mg DAILY PO 10/15/25 10:00 10/18/25 09:44 Amlodipine Besylate 10 mg DAILY PO 10/15/25 10:00 10/18/25 09:45 Amiodarone HCl 200 mg Q12HR PO 10/15/25 10:00 10/18/25 22:07 Oseltamivir Phosphate 30 mg DAILY PO 10/15/25 10:00 10/20/25 09:59 10/18/25 09:44 Levalbuterol HCl 0.625 mg Q6HR NEB 10/15/25 18:00 10/18/25 18:28 Pantoprazole Sodium 40 mg DAILY@0600 PO 10/16/25 06:00 10/18/25 05:50 objective Gen.: Patient lying in bed in no apparent distress. On supplemental oxygen. Head: Normocephalic, atraumatic. Eyes: EOMI/PERRLA. Ears: Normal hearing. Normal anatomy. Neck/trachea: Trachea midline, supple. Nose: Normal external anatomy. Mouth: Moist mucous membranes. Chest: Decreased air entry bilaterally. No wheezing or rhonchi. Cardiovascular: Positive S1, positive S2. Regular rate and rhythm. Abdomen: Positive bowel sounds in all 4 quadrants. Soft, non-tender, non- distended. : Deferred. Rectal: Deferred. Skin: Warm, dry. Intact. Extremities: 2+ radial pulses bilaterally. No lower extremity edema. Neuro: Awake, alert, oriented x3. No gross motor or sensory deficits. Cranial nerves II through XII intact. Gait not assessed. laboratory and microbiology Laboratory Tests 10/18/25 16:08 Test 10/18/25 16:08 Range/Units Serum Glucose 157 H 74-106 mg/dL Assessment/Plan Impression: Acute hypoxic respiratory failure Dependence on supplemental oxygen Influenza Pneumonia, likely GNR Atrial fibrillation Obesity Events: Remains on supplemental oxygen, 2 LPM NC Taper O2 as tolerated No acute overnight events. Repeat influenza A came back negative today. Patient complains of constipation. Pending PT eval for skilled nurse facility placement. Chest x-ray today demonstrates prominence of the interstitial markings. No pleural effusion or pneumothorax. Continue bronchodilators Continue steroids Continue antibiotics Tamiflu Incentive spirometry Lactulose for constipation Amiodarone PO/Eliquis PO BID Continue diuresis with Lasix as tolerated Monitor renal function. Monitor electrolytes. Supplement as necessary. Labs and imaging reviewed. Rest of plan as noted below. Plan: Supplemental oxygen Titrate to keep O2 sats above 92%. IV steroids Tamiflu course Continue bronchodilators. Antibiotics - pt received 2 days of abx for pneumonia Incentive spirometry Amiodarone PO/Eliquis PO BID for atrial fibrillation Cardiology recs appreciated Protonix for GI ppx Diurese with Lasix as tolerated Monitor renal function. Monitor electrolytes. Supplement as necessary. Monitor ins and outs. Recommend diet and lifestyle modifications for weight reduction Obesity complicates all care GI/DVT prophylaxis. Prognosis: Poor given patient's multiple co-morbidities. Rest of plan per hospitalist and other consultants. Thank you, Dr. Hemphill, for allowing me to participate in this patient's care. Further recommendations will depend on the patient's clinical course. Please do not hesitate to contact me if you have any questions or concerns. This medical document was created using an electronic medical record system with Dragon computerized dictation system. Although these documentations are being carefully reviewed, there may still be some phonetic and typographical changes. The errors are purely typographical, due to imperfection on the software program, and do not reflect any compromise in the patient's medical care. Plan discussed with: Patient, Other (TUCKER Saez) RUFINA ELI [facility] Oct 18, 2025 23:07
[2025-10-19] VITALS (11 sets, daily range): BP systolic 96–158; BP diastolic 61–77; PULSE 57–95; RESP 15–19; TEMP 97.7–98.8; O2SAT 92–100
--- NOTE | 2025-10-19 23:42 | DVHPN2 ---
Objective Vitals Vital Signs Date Time Temp Pulse Resp B/P (MAP) Pulse Ox O2 Delivery O2 Flow Rate FiO2 10/19/25 13:00 97.7 64 19 151/74 (99) 95 97.7 10/19/25 12:21 Nasal Cannula 3.0 10/19/25 12:21 32 Intake/Output Intake and Output 10/19/25 07:00 Intake Total 1560 ml Output Total 450 ml Balance 1110 ml Intake Oral 1260 ml IV Total 300 ml Output Urine Total 450 ml # Voids 1 # Bowel Movements 3 Laboratory Results Laboratory Tests 10/18/25 16:08 Urinalysis Test 10/15/25 16:00 Urine Color Light-yellow (Yellow) Urine Clarity Clear (Clear) Urine pH 5.5 (5.0-9.0) Urine Specific [place] 1.012 (1.001-1.035) Urine Protein Negative (Negative) Urine Ketones Negative (Negative) Urine Blood Trace /uL (Negative) H Urine Nitrite Negative (Negative) Urine Bilirubin Negative (Negative) Urine Urobilinogen Normal mg/dL (Negative) Urine Leukocyte Esterase Negative /uL (Negative) Urine RBC 1 /hpf (0 - 4) Urine Microscopic WBC 3 /HPF (0-5) Urine Squamous Epithelial Cells Few /hpf (<5) Urine Bacteria None seen /hpf (None Seen) Urine Hyaline Casts Few /lpf (0 - 2) Urine Mucus Few (None Seen) Urine Glucose Normal mg/dL (Normal) Microbiology Microbiology Date/Time Source Procedure Growth Status 10/15/25 00:20 Nose MRSA Screen - Final Complete 10/14/25 12:51 Blood Blood Culture - Final NO GROWTH AFTER 5 DAYS OF INCUBATION. Complete Visit Coding Pulmonary Date of Service if different f: Oct 19, 2025 TERRI GUZMAN MD Oct 19, 2025 23:42
--- NOTE | 2025-10-19 23:52 | DVHPN2 ---
Progress Note - Dictate Date Seen: Oct 19, 2025 Medical Necessity Reason Pt with a Central, PICC or Fol: No Subjective Patient seen and examined at bedside. Remains on supplemental oxygen Overnight events reviewed. vital signs Vital Sign Date Time Temp Pulse Resp B/P (MAP) Pulse Ox O2 Delivery O2 Flow Rate FiO2 10/19/25 13:00 97.7 64 19 151/74 (99) 95 97.7 10/19/25 12:21 Nasal Cannula 3.0 10/19/25 12:21 32 Total Intake and Output 10/18/25 10/18/25 10/19/25 15:00 23:00 07:00 Intake Total 300 ml 765 ml 495 ml Output Total 450 ml Balance 300 ml 765 ml 45 ml objective Gen.: Patient lying in bed in no apparent distress. On supplemental oxygen. Head: Normocephalic, atraumatic. Eyes: EOMI/PERRLA. Ears: Normal hearing. Normal anatomy. Neck/trachea: Trachea midline, supple. Nose: Normal external anatomy. Mouth: Moist mucous membranes. Chest: Decreased air entry bilaterally. No wheezing or rhonchi. Cardiovascular: Positive S1, positive S2. Regular rate and rhythm. Abdomen: Positive bowel sounds in all 4 quadrants. Soft, non-tender, non- distended. : Deferred. Rectal: Deferred. Skin: Warm, dry. Intact. Extremities: 2+ radial pulses bilaterally. No lower extremity edema. Neuro: Awake, alert, oriented x3. No gross motor or sensory deficits. Cranial nerves II through XII intact. Gait not assessed. laboratory and microbiology Laboratory Tests 10/18/25 16:08 Test 10/18/25 16:08 Range/Units Serum Glucose 157 H 74-106 mg/dL Assessment/Plan Impression: Acute hypoxic respiratory failure Dependence on supplemental oxygen Influenza Pneumonia, likely GNR Atrial fibrillation Obesity Events: Remains on supplemental oxygen, 2 LPM [place] Taper O2 as tolerated No acute overnight events. Repeat influenza A came back negative PT evaluation Disposition planning - patient being discharged to longterm facility. Chest x-ray on 10/18 demonstrates prominence of the interstitial markings. No pleural effusion or pneumothorax. Continue bronchodilators Continue steroids Continue antibiotics Tamiflu Incentive spirometry Lactulose for constipation Amiodarone PO/Eliquis PO BID Continue diuresis with Lasix as tolerated Monitor renal function. Monitor electrolytes. Supplement as necessary. Labs and imaging reviewed. Rest of plan as noted below. Plan: Supplemental oxygen Titrate to keep O2 sats above 92%. IV steroids Tamiflu course Continue bronchodilators. Antibiotics - pt received 2 days of abx for pneumonia Incentive spirometry Amiodarone PO/Eliquis PO BID for atrial fibrillation Cardiology recs appreciated Protonix for GI ppx Diurese with Lasix as tolerated Monitor renal function. Monitor electrolytes. Supplement as necessary. Monitor ins and outs. Recommend diet and lifestyle modifications for weight reduction Obesity complicates all care GI/DVT prophylaxis. Prognosis: Poor given patient's multiple co-morbidities. Rest of plan per hospitalist and other consultants. Thank you, Dr. Hemphill, for allowing me to participate in this patient's care. Further recommendations will depend on the patient's clinical course. Please do not hesitate to contact me if you have any questions or concerns. This medical document was created using an electronic medical record system with [employer] dictation system. Although these documentations are being carefully reviewed, there may still be some phonetic and typographical changes. The errors are purely typographical, due to imperfection on the software program, and do not reflect any compromise in the patient's medical care. Plan discussed with: Patient, Other (RN) RUFINA ELI [facility] Oct 19, 2025 23:52
== END 2025-10-19 16:00 | DRG 193 ==
LOC: ER 12:16 → EDBD 12:16 → OVERFLOW 21:02 → TELE-EAST 21:30
PROVIDERS: ADMIT Internal Medicine; ATTEND Internal Medicine
DX: J10.1 Influenza due to other identified influenza virus with other respiratory manifestations (principal); J96.01 Acute respiratory failure with hypoxia; Z99.81 Dependence on supplemental oxygen; E66.9 Obesity, unspecified; I12.9 Hypertensive chronic kidney disease with stage 1 through stage 4 chronic kidney disease, or unspecified chronic kidney disease; F03.90 Unspecified dementia, unspecified severity, without behavioral disturbance, psychotic disturbance, mood disturbance, and anxiety; N18.9 Chronic kidney disease, unspecified; I48.20 Chronic atrial fibrillation, unspecified; J98.4 Other disorders of lung; I25.10 Atherosclerotic heart disease of native coronary artery without angina pectoris; K59.00 Constipation, unspecified; E78.5 Hyperlipidemia, unspecified; Z88.0 Allergy status to penicillin; Z90.711 Acquired absence of uterus with remaining cervical stump; Z90.49 Acquired absence of other specified parts of digestive tract; Z87.891 Personal history of nicotine dependence; Z82.49 Family history of ischemic heart disease and other diseases of the circulatory system; Z82.3 Family history of stroke; Z68.29 Body mass index [BMI] 29.0-29.9, adult; Z88.2 Allergy status to sulfonamides
CPT/HCPCS: 36415; 36600; 71045; 80048; 80053; 81001; 82805; 83605; 85025; 85379; 85610; 85730; 86803; 87040; 87081; 87340; 87426; 87804; 93005; 94640; 96365; 96367; 97110; 97116; 97163; 97530; 99291; 99292; G0378; G9035; J2405; J2470; J3480